=== PATIENT | female | born 1990 | race Caucasian/White ===

== ENCOUNTER 2020-05-05 10:10 | Emergency (ER) | payer OTHER, SELFPAY ==
[2020-05-05] MEDS ORDERED: KETOROLAC 30 MG/ML INJ ONE (10:54)
--- NOTE | 2020-05-05 11:30 | EDPHYS ---
Physician Documentation [facility] Name: Flaquita Leon Age: 29 yrs Sex: Female : 1990 Arrival Date: 05/05/2020 Time: 10:12 Bed 19 Private MD: ED Physician Scooter Fontaine HPI: 05/05 10:28 This 29 yrs old Female presents to ER via Unassigned with complaints of Back cp Pain. 10:28 The patient presents with pain that is chronic. The symptoms are located in the low cp back. Onset: The symptoms/episode began/occurred 2 year(s) ago. The pain does not radiate. Associated signs and symptoms: Pertinent negatives: abdominal pain, constipation, fever, incontinence, numbness, urinary retention, weakness. 10:28 Modifying factors: the patient symptoms are aggravated by movement. cp Historical: - Allergies: 10:29 No Known Allergies; ss - PMHx: 10:29 spinal stenosis; ss - PSHx: 10:29 None; ss - Immunization history:: Adult Immunizations up to date. - Social history:: Smoking status: Patient reports the use of cigarette tobacco products, smokes one pack cigarettes per day. ROS: 10:35 Constitutional: Negative for body aches, chills, fever, poor PO intake. cp 10:35 Eyes: Negative for injury, pain, redness, and discharge. cp 10:35 ENT: Negative for ear pain, sore throat, difficulty swallowing, difficulty handling secretions. 10:35 Neck: Negative for stiffness. 10:35 Cardiovascular: Negative for chest pain, palpitations. 10:35 Respiratory: Negative for cough, shortness of breath, wheezing. 10:35 Abdomen/GI: Negative for abdominal pain, vomiting, diarrhea, constipation, black/tarry stool, rectal bleeding, bowel incontinence. 10:35 Back: Positive for pain at rest, pain with movement, of the low back area. 10:35 : Negative for urinary symptoms, difficulty urinating, bladder incontinence. 10:35 Neuro: Negative for dizziness, headache, numbness, tingling, weakness, saddle anesthesia. 10:35 All other systems are negative. Exam: 10:45 Head/Face: Normocephalic, atraumatic. cp 10:45 Constitutional: The patient appears in no acute distress, alert, awake, non-toxic, well developed, well nourished. 10:45 Neck: ROM/movement: is normal, is supple, without pain, no range of motions limitations. 10:45 Chest/axilla: Inspection: normal. 10:45 Cardiovascular: Rate: tachycardic, Rhythm: regular. cp 10:45 Respiratory: the patient does not display signs of respiratory distress, Respirations: normal, no use of accessory muscles, no retractions, labored breathing, is not present. 10:45 Abdomen/GI: Exam negative for discomfort, distension, guarding, Inspection: abdomen appears normal. 10:45 Back: pain, that is moderate, of the low back area, ROM is painful, Straight leg raises: of both lower extremities does not illicit pain. 10:45 Neuro: Motor: moves all fours, strength is normal, Sensation: is normal, Gait: is steady, Deep tendon reflexes are 2+ (normal) in the right patellar, right Achilles, left patellar and left Achilles. Vital Signs: 10:26 BP 128 / 77; Pulse 109; Resp 16; Pulse Ox 100% on R/A; Height 5 ft. 4 in. (162.56 cm); ss Pain 8/10; 11:43 BP 131 / 69; Pulse 87; Resp 16; Temp 98; Pulse Ox 100% ; bp MDM: 10:24 Patient medically screened. cp 10:30 Differential diagnosis: chronic back pain, Fracture Ureterolithiasis vertebral cp fracture, UTI. 11:30 Data reviewed: vital signs, nurses notes, radiologic studies, plain films, I have cp discussed the patient's presentation/case with the attending Emergency Department Physician; and as a result, I will discharge patient. 11:30 Counseling: I had a detailed discussion with the patient and/or guardian regarding: the cp historical points, exam findings, and any diagnostic results supporting the discharge/admit diagnosis, radiology results, the need for outpatient follow up, a neurosurgeon, to return to the emergency department if symptoms worsen or persist or if there are any questions or concerns that arise at home. Response to treatment: the patient's symptoms have markedly improved after treatment, VSS. Pain improved. Will discharge to home for continued monitoring. 05/05 10:44 Order name: Urine Dipstick--Ancillary (enter results) 05/05 10:44 Order name: Urine --Ancillary (enter results) bd 05/05 10:28 Order name: Urine Dipstick-Ancillary (obtain specimen); Complete Time: 10:39 cp 05/05 10:28 Order name: Urine Test (obtain specimen); Complete Time: 10:39 cp 05/05 10:45 Order name: XRAY Lumbar Spine (3 Views); Complete Time: 11:34 cp 05/05 11:34 Interpretation: Report reviewed. cp Administered Medications: 10:45 Drug: TORadol 30 mg Route: IM; Site: right deltoid; bp 11:45 Follow up: Response: Pain is decreased bp Disposition: 15:29 Co-signature as Attending Physician, Scooter Fontaine MD. rn Disposition: 05/05/20 11:30 Discharged to Home. Impression: Low back pain. - Condition is Stable. - Discharge Instructions: Back Pain, Adult, Heat Therapy, Back Exercises. - Prescriptions for Lidoderm 5 % Topical adhesive patch,medicated - apply 1 patch by TRANSDERMAL route once daily; 1 box. Cyclobenzaprine 10 mg Oral Tablet - take 1 tablet by ORAL route every 8 hours As needed no driving while taking medication; 20 tablet. Medrol (Marco) 4 mg Oral Tablets, Dose Pack - take 1 tablet by ORAL route as directed - follow package instructions; 1 packet. - Medication Reconciliation Form, Thank You Letter, Antibiotic Education, Prescription Opioid Use form. - Follow up: Ambrose Macdonald MD; When: 2 - 3 days; Reason: Recheck today's complaints. - Problem is chronic. - Symptoms have improved. Signatures: Dispatcher [employer] EDIN Scooter Fontaine MD MD rn Smirch, Shelby, RN RN ss Page, Corey, PA PA cp Oz Lieberman RN RN bp Corrections: (The following items were deleted from the chart) 11:45 11:30 05/05/2020 11:30 Discharged to Home. Impression: Low back pain. Condition is bp Stable. Forms are Medication Reconciliation Form, Thank You Letter, Antibiotic Education, Prescription Opioid Use. Follow up: Ambrose Macdonald; When: 2 - 3 days; Reason: Recheck today's complaints. Problem is chronic. Symptoms have improved. cp
--- NOTE | 2020-05-05 11:30 | ER ---
Nurse's Notes [facility] Name: Flaquita Leon Age: 29 yrs Sex: Female : 1990 Arrival Date: 05/05/2020 Time: 10:12 Bed 19 Private MD: Diagnosis: Low back pain Presentation: 05/05 10:26 Chief complaint: Patient states: back pain x years. Pt reports that in [place] she had ss a CT and was told she has spinal stenosis and needs follow up with it. Pt states that she recently moved back here and has not followed up yet and wants to see if there is anything she can do about. Coronavirus screen: Client denies travel out of the [place] in the last 14 days. Ebola Screen: Patient denies exposure to infectious person. Patient denies travel to an Ebola-affected area in the 21 days before illness onset. Initial Sepsis Screen: Does the patient meet any 2 criteria? No. Patient's initial sepsis screen is negative. Does the patient have a suspected source of infection? No. Patient's initial sepsis screen is negative. Risk Assessment: Do you want to hurt yourself or someone else? Patient reports no desire to harm self or others. Onset of symptoms is unknown. 10:26 Method Of Arrival: Ambulatory ss 10:26 Acuity: VERA 4 ss Triage Assessment: 10:30 General: Appears in no apparent distress. uncomfortable, Behavior is cooperative, bp appropriate for age, anxious. EENT: No signs and/or symptoms were reported regarding the EENT system. Neuro: Level of Consciousness is awake, alert, obeys commands, Oriented to Appropriate for age. Cardiovascular: No deficits noted. Respiratory: No deficits noted. GI: No signs and/or symptoms were reported involving the gastrointestinal system. : Reports pain in lower back. Derm: No deficits noted. Musculoskeletal: No deficits noted. Historical: - Allergies: 10:29 No Known Allergies; ss - PMHx: 10:29 spinal stenosis; ss - PSHx: 10:29 None; ss - Immunization history:: Adult Immunizations up to date. - Social history:: Smoking status: Patient reports the use of cigarette tobacco products, smokes one pack cigarettes per day. Screenin:30 Abuse screen: Denies threats or abuse. Denies injuries from another. Nutritional bp screening: No deficits noted. Tuberculosis screening: No symptoms or risk factors identified. Fall Risk None identified. Assessment: 10:15 Reassessment: Unable to locate patient. ER registration states that patient told them ss she had to get something out of her car real quick. Awaiting for patient to return. 11:43 Reassessment: PT D/C HOME AMBULATORY, DX WITH LOW BACK PAIN. Neuro: Moves all bp extremities. Full function Gait is steady. Vital Signs: 10:26 BP 128 / 77; Pulse 109; Resp 16; Pulse Ox 100% on R/A; Height 5 ft. 4 in. (162.56 cm); ss Pain 8/10; 11:43 BP 131 / 69; Pulse 87; Resp 16; Temp 98; Pulse Ox 100% ; bp ED Course: 10:12 Patient arrived in ED. ag5 10:19 Oliver Ramirez PA is PHCP. cp 10:20 Scooter Fontaine MD is Attending Physician. cp 10:23 Oz Lieberman, SLOAN is Primary Nurse. bp 10:28 Triage completed. ss 10:29 Arm band placed on right wrist. ss 10:30 Patient has correct armband on for positive identification. Bed in low position. Call bp light in reach. Side rails up X2. 11:07 XRAY Lumbar Spine (3 Views) In Process Unspecified. EDMS 11:29 Ambrose Macdonald MD is Referral Physician. cp 11:43 No provider procedures requiring assistance completed. Patient did not have IV access bp during this emergency room visit. Administered Medications: 10:45 Drug: TORadol 30 mg Route: IM; Site: right deltoid; bp 11:45 Follow up: Response: Pain is decreased bp Outcome: 11:30 Discharge ordered by . cp 11:43 Discharged to home ambulatory. bp 11:43 Condition: stable 11:43 Discharge instructions given to patient, Instructed on discharge instructions, follow up and referral plans. medication usage, Demonstrated understanding of instructions, follow-up care, medications, Prescriptions given X 3. 11:45 Patient left the ED. bp Signatures: Dispatcher [employer] EDMS Kristin Epstein RN RN Oliver Ramirez PA PA cp Peltier, Brian, RN RN bp Emily Goncalves ag5
--- NOTE | 2020-05-05 11:33 | RAD REPORT ---
EXAM DESCRIPTION: RAD - Lumbar Spine 3 Views - 05/05/2020 11:09 am CLINICAL HISTORY: LOWER BACK PAIN COMPARISON: No comparisons FINDINGS: A three-view lumbar spine examination was performed. Lumbar bodies are normal in height. L5 pars interarticularis defects are present with grade I, border ing on II, spondylolisthesis. Vertebral alignment otherwise normal. No fracture or acute bony process seen. No disc space narrowing. No other significant findings. No other pars defects identified. IMPRESSION: L5 spondylolysis with grade I, bordering on grade 2, spondylolisthesis. Patient may well have spinal stenosis at L5-S1 and bilateral foraminal stenosis is often seen. No compression fracture or acute finding.
[2020-05-05 11:50] LABS: Urine Blood NEGATIVE (NEG); Urine Glucose NEGATIVE (NEG); Urine Protein NEGATIVE (NEG)
[2020-05-05 11:56] VITALS: O2SAT 100
[2020-05-05 11:57] VITALS: BP 131/69; TEMP 98
== END 2020-05-05 11:45 | disposition home or self-care (01) ==
LOC: ER 10:10
DX: M54.5 Low back pain (principal); F17.210 Nicotine dependence, cigarettes, uncomplicated
CPT/HCPCS: 72100; 81003; 81025; 96372; 99283

== ENCOUNTER 2020-05-23 09:04 | Emergency (ER) | payer SELFPAY ==
--- OUTSIDE RECORDS SUMMARY | 2020-05-23 09:06 | XMS REPORT | Summary of Care ---
:1990 Author Organization [facility] Address [address] [place] [address] Care Team Providers Name Role Phone Pcp, Does Not Have A Primary Care Provider Reason for Referral (Routine) Status Reason Specialty Diagnoses / Referred By Referred To Procedures Contact Contact New Request ORT-ORTHOPAEDIC Diagnoses Chronic low back pain, unspecified back pain laterality, unspecified whether sciatica present Viktor Lemus, SURGERY OF THE Procedures Discharge Follow-Up: Specialty Service ORT-ORTHOPAEDIC SURGERY OF THE SPINE; 4-6 Weeks DOUGH CATCHER SPINE [address] [place] [address] Reason for Visit Reason Comments Back Pain Auth/Cert Status Reason Specialty Diagnoses / Referred By Referred To Procedures Contact Contact Emergency Medicine [facility] Em ergency Dept [address] [phone] Fax: Encounter Details Date Type Department Care Team Description 05/11/2020 Emergency ADC-Emergency Viktor Lemus , DOUGH CATCHER Chronic low back pain, Department [address] [facility] unspecified back pain [address] [facility] [address] [place] [address] sciatica present [phone] (Primary Dx) Allergies No Known Allergiesdocumented as of this encounter (statuses as of 05/11/2020) Medications Medication Sig Dispensed Refills Start Date End Date Status HYDROcodone-acetaminop TAKE 1 TABLET BY 0 06/28/2016 Active hen 5-325 mg tablet MOUTH EVERY 4 HOURS NEEDED FOR PAIN CITRANATAL HARMONY, TAKE ONE CAPSULE 6 06/06/2016 Active IRON FUM, 27 mg iron-1 BY MOUTH EVERY DAY mg -50 mg-260 mg Cap documented as of this encounter (statuses as of 05/11/2020) Active Problems Problem Noted Date Left wrist pain 07/03/2016 documented as of this encounter (statuses as of 05/11/2020) Social History Tobacco Use Types Packs/Day Years Used Date Current Every Day Smoker Smokeless Tobacco: Never Used Alcohol Use Drinks/Week oz/Week Comments No 0 Standard drinks or equivalent 0.0 Sex Assigned at Date Recorded Not on file COVID-19 Exposure Response Date Recorded In the last month, have you been in contact with No / Unsure 05/11/2020 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 documented as of this encounter Last Filed Vital Signs Vital Sign Reading Time Taken Comments Blood Pressure 98/89 05/11/2020 9:33 AM TROLLEY WORKER Pulse 89 05/11/2020 9:33 AM TROLLEY WORKER Temperature 36.6 C (97.9 F) 05/11/2020 9:33 AM TROLLEY WORKER Respiratory Rate 14 05/11/2020 9:33 AM TROLLEY WORKER Oxygen Saturation 99% 05/11/2020 9:33 AM TROLLEY WORKER Inhaled Oxygen Concentration - - Weight 74.8 kg (165 lb) 05/11/2020 9:33 AM TROLLEY WORKER Height 162.6 cm (5' 4") 05/11/2020 9:33 AM TROLLEY WORKER Body Mass Index 28.32 05/11/2020 9:33 AM TROLLEY WORKER documented in this encounter ED Notes Lima Andrade RN - 05/11/2020 9:31 AM CSTPatient complaining of chronic back pain. States she was diagnosed with spinal stenosis in [place]. She was told she would need surgery but is unable to afford it. She is here requesting a referral to another surgeon and for pain management. She ambulated without gait disturbances to triage and appears in no acute distress. documented in this encounter Miscellaneous Notes ED Nurse Note - Lima Andrade RN - 05/11/2020 11:02 AM CSTPt seen by provider and deemed non-emergent. Medical screening completed. Pt declined to stay. Vital signs stable, AO4, no ataxia, gait steady on departure and appears in no distress. documented in this encounter Plan of Treatment Health Maintenance Due Date Last Done Comments VARICELLA VACCINES (1 of 2 - 1990 2-dose childhood series) Depression Screening 2001 DTaP,Tdap,and Td Vaccines (1 - 2008 Tdap) PAP SMEAR 2010 INFLUENZA VACCINE (#1) 2020 PNEUMOCOCCAL 0-64 YEARS COMBINED Aged Out No longer eligible based on SERIES patient's age to complete this topic documented as of this encounter Procedures Procedure Name Priority Date/Time Associated Diagnosis Comme nts NOTICE OF PRIVACY Routine 05/11/2020 9:22 AM TROLLEY WORKER PRACTICES documented in this encounter Results Not on filedocumented in this encounter Visit Diagnoses Diagnosis Chronic low back pain, unspecified back pain laterality, unspecified whether sciatica present - Primary documented in this encounter
--- OUTSIDE RECORDS SUMMARY | 2020-05-23 09:06 | XMS REPORT | Continuity of Care Document ---
:1990 Author Organization [facility] t Address [address] [place] [address] Care Team Providers Name Role Phone Amisha Taylor Attending Clinician Problems This patient has no known problems. Allergies, Adverse Reactions, Alerts This patient has no known allergies or adverse reactions. Medications This patient has no known medications. Procedures This patient has no known procedures. Encounters Start End Encounter Admission Attending Care Care Encounter Source Date/Time Date/Time Type Type Clinicians Facility Department ID 2020-05-14 2020-05-14 Emergency Allan, [facility] [id number] 10:59:00 11:15:00 Viktor Lion [facility] [id number] 2020-05-11 2020-05-11 Emergency Allan, [facility] [id number] 09:34:00 11:03:00 Viktor Lion [place] [id number] [place] [id number] [place] [id number] Results This patient has no known results.
--- OUTSIDE RECORDS SUMMARY | 2020-05-23 09:07 | XMS REPORT | Summary of Care ---
:1990 Author Organization 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 [address] [place] [phone] [place] [address] Allergies No Known Allergiesdocumented as of this encounter (statuses as of 05/14/2020) Medications Medication Sig Dispensed Refills Start Date End Date Status HYDROcodone-acetaminop TAKE 1 TABLET BY 0 06/28/2016 Active hen 5-325 mg tablet MOUTH EVERY 4 HOURS NEEDED FOR PAIN CITRANATAL HARMONY, TAKE ONE CAPSULE 6 06/06/2016 Active IRON FUM, 27 mg iron-1 BY MOUTH EVERY DAY mg -50 mg-260 mg Cap documented as of this encounter (statuses as of 05/14/2020) Active Problems Problem Noted Date Left wrist pain 07/03/2016 documented as of this encounter (statuses as of 05/14/2020) Social History Tobacco Use Types Packs/Day Years Used Date Current Every Day Smoker Smokeless Tobacco: Never Used Alcohol Use Drinks/Week oz/Week Comments No 0 Standard drinks or equivalent 0.0 Sex Assigned at Date Recorded Not on file COVID-19 Exposure Response Date Recorded In the last month, have you been in contact with No / Unsure 05/11/2020 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 documented as of this encounter Last Filed Vital Signs Vital Sign Reading Time Taken Comments Blood Pressure 126/78 05/14/2020 11:00 AM ADULT EDUCATION PROFESSIONAL Pulse 98 05/14/2020 11:00 AM ADULT EDUCATION PROFESSIONAL Temperature 37 C (98.6 F) 05/14/2020 11:00 AM ADULT EDUCATION PROFESSIONAL Respiratory Rate 16 05/14/2020 11:00 AM ADULT EDUCATION PROFESSIONAL Oxygen Saturation 100% 05/14/2020 11:00 AM ADULT EDUCATION PROFESSIONAL Inhaled Oxygen Concentration - - Weight 74.8 kg (164 lb 14.4 oz) 05/14/2020 11:00 AM ADULT EDUCATION PROFESSIONAL Height - - Body Mass Index 28.31 05/11/2020 9:33 AM ADULT EDUCATION PROFESSIONAL documented in this encounter ED Notes Beulah Alexandre RN - 05/14/2020 10:57 AM CSTChemirna Leon is a 29 year old female rec'd to ed triage ambulatory with stable gait c/o low and mid back pain x 1 month +, worse with movement, denies any recent injury looking to get set up with primary care. Patient awake alert resp non labored speech clear full sentences, skin warm and dry color approp for race T EDUCATION PROFESSIONAL documented in this encounter Plan of Treatment Health Maintenance Due Date Last Done Comments VARICELLA VACCINES (1 of 2 - 2-dose childhood series) 1990 PNEUMOCOCCAL 0-64 YEARS COMBINED SERIES (1 of 1 - 09/28/1995 PPSV23) Depression Screening 2001 DTaP,Tdap,and Td Vaccines (1 - Tdap) 2008 PAP SMEAR 2010 INFLUENZA VACCINE (#1) 2020 documented as of this encounter Results Not on filedocumented in this encounter
--- NOTE | 2020-05-23 09:34 | ER ---
Nurse's Notes [facility] Name: Flaquita Leon Age: 29 yrs Sex: Female : 1990 Arrival Date: 05/23/2020 Time: 09:07 Bed 8 Private MD: Diagnosis: Cellulitis and abscess of mouth-uvulitis Presentation: 05/23 09:08 Note Called pt in the lobby, pt outside smoking. sv 09:18 Chief complaint: Patient states: sore throat, "feels like something is sitting on top sv of my tongue." since this morning. Coronavirus screen: Client denies travel out of the [place] in the last 14 days. At this time, the client does not indicate any symptoms associated with coronavirus-19. Ebola Screen: No symptoms or risks identified at this time. Risk Assessment: Do you want to hurt yourself or someone else? Patient reports no desire to harm self or others. Onset of symptoms was May 23, 2020. 09:18 Method Of Arrival: Ambulatory sv 09:18 Acuity: VERA 4 sv 09:25 Initial Sepsis Screen: Does the patient meet any 2 criteria? No. Patient's initial vg1 sepsis screen is negative. Does the patient have a suspected source of infection? No. Patient's initial sepsis screen is negative. 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 - Social history:: Smoking status: Patient reports the use of cigarette tobacco products, smokes 1.5 packs per day. Screenin:20 Abuse screen: Denies threats or abuse. Nutritional screening: No deficits noted. vg1 Tuberculosis screening: No symptoms or risk factors identified. Fall Risk No fall in past 12 months (0 pts). No secondary diagnosis (0 pts). No IV (0 pts). Ambulatory Aid- Crutches/Cane/Walker (15 pts). Gait- Normal/Bed Rest/Wheelchair (0 pts) Mental Status- Oriented to own ability (0 pts). Total Caballero Fall Scale indicates No Risk (0-24 pts). Assessment: 09:20 General: Appears in no apparent distress. comfortable, Behavior is calm, cooperative. vg1 Pain: Complains of pain in throat Pain currently is 6 out of 10 on a pain scale. Pain began this morning. Neuro: Level of Consciousness is awake, alert, obeys commands, Oriented to person, place, time, situation. Cardiovascular: Patient's skin is warm and dry. Respiratory: Airway is patent Respiratory effort is even, unlabored, Respiratory pattern is regular, symmetrical. GI: No signs and/or symptoms were reported involving the gastrointestinal system. : No signs and/or symptoms were reported regarding the genitourinary system. EENT: Throat is reddened swollen uvula. Derm: Skin is pink, warm \\T\\ dry. Musculoskeletal: Range of motion: intact in all extremities. Vital Signs: 09:18 Weight 68.04 kg; Height 5 ft. 4 in. (162.56 cm); sv 09:20 BP 118 / 86; Pulse 70; Resp 16; Temp 98.0(O); Pulse Ox 95% on R/A; vg1 09:18 Body Mass Index 25.75 (68.04 kg, 162.56 cm) sv ED Course: 09:07 Patient arrived in ED. mr 09:08 Oliver Ramirez PA is PHCP. cp 09:08 Scooter Fontaine MD is Attending Physician. cp 09:12 Patient's name was called from ANGELICA fisher. No response. ph 09:19 Triage completed. sv 09:22 Arm band placed on right wrist. vg1 09:25 Patient has correct armband on for positive identification. Bed in low position. Call vg1 light in reach. 09:31 Marie Hester, SLOAN is Primary Nurse. vg1 09:46 Strep Sent. vg1 09:51 No provider procedures requiring assistance completed. Patient did not have IV access vg1 during this emergency room visit. Administered Medications: 09:40 Drug: Decadron 10 mg Route: PO; vg1 09:54 Follow up: Response: Medication administered at discharge. vg1 09:40 Drug: Augmentin 875 mg Route: PO; vg1 09:54 Follow up: Response: Medication administered at discharge. vg1 Outcome: 09:33 Discharge ordered by . cp 09:51 Discharged to home ambulatory. vg1 09:51 Condition: good 09:51 Discharge instructions given to patient, Instructed on discharge instructions, follow up and referral plans. medication usage, Demonstrated understanding of instructions, follow-up care, medications, Prescriptions given X 1. 09:52 Patient left the ED. vg1 Signatures: Lesia Alvarenga, RN RN Hien Bell mr Albert, Palma, RN RN Ashley, NIMO Boyd cp, Marie, RN RN vg1
--- NOTE | 2020-05-23 09:34 | EDPHYS ---
Physician Documentation [facility] Name: Flaquita Leon Age: 29 yrs Sex: Female : 1990 Arrival Date: 05/23/2020 Time: 09:07 Bed 8 Private MD: ED Physician Scooter Fontaine HPI: 05/23 09:25 This 29 yrs old Female presents to ER via Ambulatory with complaints of Sore cp Throat. 09:25 The patient presents with sore throat. The patient describes throat pain as sore cp throat. Onset: The symptoms/episode began/occurred this morning. Severity of symptoms: in the emergency department the symptoms are unchanged, despite home interventions. Associated signs and symptoms: Pertinent positives: cough, dysphagia, earache, Sore throat Pertinent negatives fever, flu-like symptoms. 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 - Social history:: Smoking status: Patient reports the use of cigarette tobacco products, smokes 1.5 packs per day. ROS: 09:27 Eyes: Negative for injury, pain, redness, and discharge. cp 09:27 Constitutional: Negative for body aches, chills, fever, poor PO intake. 09:27 ENT: Positive for ear pain, sore throat, Negative for drainage from ear(s), difficulty swallowing, difficulty handling secretions. 09:27 Respiratory: Positive for cough, Negative for shortness of breath, wheezing. 09:27 Abdomen/GI: Negative for abdominal pain, nausea, vomiting, and diarrhea. 09:27 Neuro: Negative for headache. 09:27 All other systems are negative. Exam: 09:28 Head/Face: Normocephalic, atraumatic. cp 09:28 Constitutional: The patient appears in no acute distress, alert, awake, non-toxic, well developed, well nourished. 09:28 Eyes: Periorbital structures: appear normal, Conjunctiva: normal, no exudate, no injection, Lids and lashes: appear normal, bilaterally. 09:28 ENT: External ear(s): are unremarkable, Ear canal(s): are normal, clear, TM's: dullness, bilaterally, Nose: is normal, Mouth: Lips: moist, Oral mucosa: pink and intact, moist, Posterior pharynx: Tonsils: with erythema, no enlargement, no exudate, Uvula: midline, edematous, erythema, erythema, that is mild, exudate, is not appreciated. 09:28 Neck: ROM/movement: is normal, is supple, without pain, no range of motions limitations, no meningismus. 09:28 Chest/axilla: Inspection: normal. 09:28 Respiratory: the patient does not display signs of respiratory distress, Respirations: normal, no use of accessory muscles, labored breathing, is not present. 09:28 Skin: no rash present. Vital Signs: 09:18 Weight 68.04 kg; Height 5 ft. 4 in. (162.56 cm); sv 09:20 BP 118 / 86; Pulse 70; Resp 16; Temp 98.0(O); Pulse Ox 95% on R/A; vg1 09:18 Body Mass Index 25.75 (68.04 kg, 162.56 cm) sv MDM: 09:21 Patient medically screened. cp 09:32 Data reviewed: vital signs, nurses notes. 09:32 Differential diagnosis: epiglottitis, group A strep tonsillitis, peritonsillar abscess cp pharyngitis, retropharyngeal abcess tonsillitis, uvulitis. Counseling: I had a detailed discussion with the patient and/or guardian regarding: the historical points, exam findings, and any diagnostic results supporting the discharge/admit diagnosis, to return to the emergency department if symptoms worsen or persist or if there are any questions or concerns that arise at home. Response to treatment: the patient's symptoms have mildly improved after treatment. 05/23 09:25 Order name: Strep cp Administered Medications: 09:40 Drug: Decadron 10 mg Route: PO; vg1 09:54 Follow up: Response: Medication administered at discharge. vg1 09:40 Drug: Augmentin 875 mg Route: PO; vg1 09:54 Follow up: Response: Medication administered at discharge. vg1 Disposition: 09:53 Co-signature as Attending Physician, Scooter Fontaine MD. rn Disposition: 05/23/20 09:33 Discharged to Home. Impression: Cellulitis and abscess of mouth - uvulitis. - Condition is Stable. - Discharge Instructions: Uvulitis. - Prescriptions for Augmentin 875- 125 mg Oral Tablet - take 1 tablet by ORAL route every 12 hours for 10 days; 20 tablet. - Medication Reconciliation Form, Thank You Letter, Antibiotic Education, Prescription Opioid Use form. - Follow up: Private Physician; When: 1 - 2 days; Reason: Worsening of condition. - Problem is new. - Symptoms have improved. Signatures: Dispatcher [employer] Lesia Davis RN RN sv Scooter Fontaine MD MD rn Oliver Ramirez PA PA Marie Duong, RN RN vg1 Corrections: (The following items were deleted from the chart) 09:52 09:33 05/23/2020 09:33 Discharged to Home. Impression: Cellulitis and abscess of mouth vg1 - uvulitis. Condition is Stable. Forms are Medication Reconciliation Form, Thank You Letter, Antibiotic Education, Prescription Opioid Use. Follow up: Private Physician; When: 1 - 2 days; Reason: Worsening of condition. Problem is new. Symptoms have improved. cp
[2020-05-23] MEDS ORDERED: dexAMETHasone 10 MG/ML VIAL ONE (09:50)
[2020-05-23] MEDS ORDERED: AMOX/K CLAV 875 MG TAB ONE (09:50)
[2020-05-23 14:27] VITALS: BP 118/86; TEMP 98; O2SAT 95
== END 2020-05-23 09:52 | disposition home or self-care (01) ==
LOC: ER 09:04
DX: K12.2 Cellulitis and abscess of mouth (principal); F17.210 Nicotine dependence, cigarettes, uncomplicated
CPT/HCPCS: 87070; 87081; 99283; J1100

== ENCOUNTER 2020-06-18 18:23 | Emergency (ER) | payer SELFPAY ==
--- OUTSIDE RECORDS SUMMARY | 2020-06-18 18:24 | XMS REPORT | Continuity of Care Document ---
:1990 Author Organization [facility] t Address [address] [place] [address] Care Team Providers Name Role Phone Amisha [...] 2020-05-14 2020-05-14 Emergency Allan, TRAUMA [id number] 10:59:00 11:15:00 Viktor Lion [place] [id number] 2020-05-11 2020-05-11 Emergency Allan, [facility] [id number] 09:34:00 11:03:00 Viktor Lion [place] [id number] [place] [id number] [place] [phone] [id number] Results This patient has no known results.
[2020-06-18 20:12] LABS: Absolute Lymphocytes (CBC) 2.2 K/uL (0.7-4.9); Basophils % 0.4 % (0-1.3); Hematocrit 44.1 % (36.0-45.0); MPV 7.4 fL (7.6-11.3)
[2020-06-18 20:13] LABS: Protime INR 1.07
[2020-06-18 20:18] LABS: Barbiturates NEGATIVE (NEGATIVE); Benzodiazepines NEGATIVE (NEGATIVE); Cocaine NEGATIVE (NEGATIVE); METHAMPHETAM POSITIVE (NEGATIVE); Methadone NEGATIVE (NEGATIVE); Opiates NEGATIVE (NEGATIVE); Phencyclidine NEGATIVE (NEGATIVE); THC Cannibis POSITIVE (NEGATIVE)
[2020-06-18 20:29] LABS: ALT/SGPT 13 U/L (12-78); AST/SGOT 8 U/L (15-37); Albumin 4.3 g/dL (3.4-5.0); Alkaline Phosphatase 74 U/L (45-117); BUN Blood Urea Nitrogen 14 mg/dL (7-18); Bicarbonate 28 mmol/L (21-32); Bilirubin Direct 0.3 mg/dL (0-0.2); Bilirubin Total 1.9 mg/dL (0.2-1.0); Glucose Level 82 mg/dL (74-106); Potassium 3.7 mmol/L (3.5-5.1); Protein, Total 8.1 g/dL (6.4-8.2); Sodium Level 141 mmol/L (136-145)
[2020-06-18 20:31] LABS: Urine Blood TRACE (NEG); Urine Glucose NEGATIVE (NEG); Urine Protein NEGATIVE (NEG); Urine Specific Gravity 1.015 (1.005-1.030); Urine pH 8.5 (5.0-7.0)
--- NOTE | 2020-06-18 21:28 | ER ---
Nurse's Notes [facility] Name: Flaquita Leon Age: 29 yrs Sex: Female : 1990 Arrival Date: 06/18/2020 Time: 18:24 Bed 19 Private MD: Diagnosis: Methamphetamine Abuse;Marijuana Use;Anxiety;UTI Presentation: 06/18 18:32 Chief complaint: Patient states: "I was in intermediate and I started hyperventilating and aa5 having trouble breathing and anxiety so the police brought me here". Pt also reports chronic back pain and feeling lightheaded at this time. Pt also reports cough, denies smoker's cough. Pt cooperative but irritated, pt accompanied by special forces warrant officer. 18:32 Coronavirus screen: Client denies travel out of the [place] in the last 14 days. cough aa5 unrelated to allergies, Client presents with at least one sign or symptom that may indicate coronavirus-19. Standard/surgical mask placed on the client. Provider contacted for isolation considerations. Ebola Screen: Patient negative for fever greater than or equal to 101.5 degrees Fahrenheit, and additional compatible Ebola Virus Disease symptoms. Initial Sepsis Screen: Does the patient meet any 2 criteria? No. Patient's initial sepsis screen is negative. Does the patient have a suspected source of infection? No. Patient's initial sepsis screen is negative. Risk Assessment: Do you want to hurt yourself or someone else? Patient reports no desire to harm self or others. Onset of symptoms was June 2020. 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 - Social history:: Smoking status: Patient reports the use of cigarette tobacco products, smokes one pack cigarettes per day. Screenin:15 Abuse screen: Denies threats or abuse. Denies injuries from another. Nutritional wh screening: No deficits noted. Tuberculosis screening: No symptoms or risk factors identified. Fall Risk None identified. Assessment: 19:15 General: Appears in no apparent distress. Behavior is cooperative, appropriate for age, anxious. Pain: Denies pain. Neuro: Level of Consciousness is awake, alert, obeys commands, Oriented to person, place, time, situation, Appropriate for age. Cardiovascular: Capillary refill < 3 seconds. Respiratory: Airway is patent Respiratory effort is even, unlabored, Respiratory pattern is regular, symmetrical. GI: Abdomen is flat, non-distended. : No signs and/or symptoms were reported regarding the genitourinary system. EENT: No signs and/or symptoms were reported regarding the EENT system. Derm: Skin is intact, is healthy with good turgor, Skin is pink, warm \\T\\ dry. normal. Musculoskeletal: Circulation, motion, and sensation intact. 20:30 Reassessment: Patient appears in no apparent distress at this time. No changes from previously documented assessment. Patient and/or family updated on plan of care and expected duration. Pain level reassessed. Patient is alert, oriented x 3, equal unlabored respirations, skin warm/dry/pink. 21:30 Reassessment: Patient appears in no apparent distress at this time. Patient and/or family updated on plan of care and expected duration. Pain level reassessed. Patient is alert, oriented x 3, equal unlabored respirations, skin warm/dry/pink. Vital Signs: 18:32 BP 109 / 71; Pulse 83; Resp 18 S; Temp 98.2(TE); Pulse Ox 99% on R/A; Weight 68.04 kg aa5 (R); Height 5 ft. 4 in. (162.56 cm) (R); 20:30 BP 110 / 69; Pulse 69; Resp 18; Pulse Ox 98% on R/A; wh 21:30 BP 98 / 77; Pulse 81; Resp 18; Pulse Ox 99% on R/A; wh 18:32 Body Mass Index 25.75 (68.04 kg, 162.56 cm) aa5 ED Course: 18:24 Patient arrived in ED. rg4 18:32 Arm band placed on. aa5 18:36 Triage completed. aa5 19:01 Shane Solorzano MD is Attending Physician. 7 19:05 Urine collected: clean catch specimen, clear, kashif colored, Legal drug screen obtained jp3 per protocol. 19:15 Patient has correct armband on for positive identification. Bed in low position. Call light in reach. Side rails up X 1. Pulse ox on. NIBP on. 19:20 Tamica Viveros is Primary Nurse. 19:40 Initial lab(s) drawn, by me, sent to lab. Patient maintains SpO2 saturation greater jp3 than 95% on room air. 19:59 EKG done, by ED staff, reviewed by Shane Solorzano MD. jp3 20:05 Diet: Patient given water. Tolerated well. jp3 21:42 No provider procedures requiring assistance completed. Patient did not have IV access during this emergency room visit. Administered Medications: No medications were administered Outcome: 21:27 Discharge ordered by . mh7 21:42 Discharged to Law Enforcement 21:42 Condition: stable 21:42 Discharge instructions given to patient, police, Instructed on discharge instructions, follow up and referral plans. medication usage, POC Demonstrated understanding of instructions, follow-up care, medications, POC Prescriptions given X 1. 21:44 Patient left the ED. Signatures: Heather Lugo RN RN aa5 Candis Hester rg4 Tamica Viveros Roland Jimenez jp3 Shane Solorzano MD MD mh7 Corrections: (The following items were deleted from the chart) 18:40 18:32 Chief complaint: Patient states: "I was in intermediate and I started hyperventilating aa5 and having trouble breathing and anxiety so the police brought me here". Pt also reports back pain and feeling lightheaded at this time. Pt also reports cough, denies smoker's cough. aa5
--- NOTE | 2020-06-18 21:29 | EDPHYS ---
Physician Documentation [facility] Name: Flaquita Leon Age: 29 yrs Sex: Female : 1990 Arrival Date: 06/18/2020 Time: 18:24 Bed 19 Private MD: ED Physician Shane Solorzano HPI: 06/18 19:37 This 29 yrs old Female presents to ER via Ambulatory with complaints of mh7 Anxiety. 19:37 The patient presents to the emergency department with anxiety, Arrested and jailed. mh7 Onset: The symptoms/episode began/occurred just prior to arrival, today. Past psychiatric history: Prior diagnosis: bipolar disorder, Anxiety, Psychiatric medications include: Lisandra, Primary psychiatric physician: [facility] psychiatrist, the patient has not had a prior suicide gesture, the patient does not have a previous inpatient psychiatric history, the patient's last psychiatric treatment was 2 day(s) ago. Associated signs and symptoms: Pertinent positives; anxiety. Severity of symptoms: At their worst the symptoms were moderate just prior to arrival, today, in the emergency department the symptoms have improved moderately. The patient has experienced similar episodes in the past, multiple times. Patient states that she started to feel as if she was going to have a seizure after being arrested and taken to [facility]. She did not have a seizure or LOC. She was breathing fast and had tingling in her hands. She denies any other complaints.. 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 - Social history:: Smoking status: Patient reports the use of cigarette tobacco products, smokes one pack cigarettes per day. ROS: 19:37 Constitutional: Negative for fever, chills, and weight loss, Eyes: Negative for injury, mh7 pain, redness, and discharge, ENT: Negative for injury, pain, and discharge, Neck: Negative for injury, pain, and swelling, Cardiovascular: Negative for chest pain, palpitations, and edema, Respiratory: Negative for shortness of breath, cough, wheezing, and pleuritic chest pain, Abdomen/GI: Negative for abdominal pain, nausea, vomiting, diarrhea, and constipation, : Negative for injury, bleeding, discharge, and swelling, MS/Extremity: Negative for injury and deformity, Skin: Negative for injury, rash, and discoloration, Allergy/Immunology: Negative for hives, rash, and allergies, Endocrine: Negative for neck swelling, polydipsia, polyuria, polyphagia, and marked weight changes, Hematologic/Lymphatic: Negative for swollen nodes, abnormal bleeding, and unusual bruising. Exam: 19:37 Constitutional: This is a well developed, well nourished patient who is awake, alert, mh7 and in no acute distress. Head/Face: Normocephalic, atraumatic. Eyes: Pupils equal round and reactive to light, extra-ocular motions intact. Lids and lashes normal. Conjunctiva and sclera are non-icteric and not injected. Cornea within normal limits. Periorbital areas with no swelling, redness, or edema. Neck: Trachea midline, no thyromegaly or masses palpated, and no cervical lymphadenopathy. Supple, full range of motion without nuchal rigidity, or vertebral point tenderness. No Meningismus. Chest/axilla: Normal chest wall appearance and motion. Nontender with no deformity. No lesions are appreciated. Cardiovascular: Regular rate and rhythm with a normal S1 and S2. No gallops, murmurs, or rubs. Normal PMI, no JVD. No pulse deficits. Respiratory: Lungs have equal breath sounds bilaterally, clear to auscultation and percussion. No rales, rhonchi or wheezes noted. No increased work of breathing, no retractions or nasal flaring. Abdomen/GI: Soft, non-tender, with normal bowel sounds. No distension or tympany. No guarding or rebound. No evidence of tenderness throughout. Back: No spinal tenderness. No costovertebral tenderness. Full range of motion. Skin: Warm, dry with normal turgor. Normal color with no rashes, no lesions, and no evidence of cellulitis. MS/ Extremity: Pulses equal, no cyanosis. Neurovascular intact. Full, normal range of motion. Neuro: Awake and alert, GCS 15, oriented to person, place, time, and situation. Cranial nerves II-XII grossly intact. Motor strength 5/5 in all extremities. Sensory grossly intact. Cerebellar exam normal. Normal gait. Psych: Awake, alert, with orientation to person, place and time. Behavior, mood, and affect are within normal limits. Vital Signs: 18:32 BP 109 / 71; Pulse 83; Resp 18 S; Temp 98.2(TE); Pulse Ox 99% on R/A; Weight 68.04 kg aa5 (R); Height 5 ft. 4 in. (162.56 cm) (R); 20:30 BP 110 / 69; Pulse 69; Resp 18; Pulse Ox 98% on R/A; wh 21:30 BP 98 / 77; Pulse 81; Resp 18; Pulse Ox 99% on R/A; wh 18:32 Body Mass Index 25.75 (68.04 kg, 162.56 cm) aa5 MDM: 21:25 Differential diagnosis: drug withdrawal. Anxiety, Substance Abuse. Data reviewed: vital health system signs, nurses notes, old medical records, lab test result(s), CBC, drug level(s), electrolytes, urinalysis, urine drug screen, UPT: EKG. Data interpreted: Pulse oximetry: on room air is 99 %. Interpretation: normal. Counseling: I had a detailed discussion with the patient and/or guardian regarding: the historical points, exam findings, and any diagnostic results supporting the discharge/admit diagnosis, lab results, the need for outpatient follow up, to return to the emergency department if symptoms worsen or persist or if there are any questions or concerns that arise at home. Response to treatment: the patient's symptoms have resolved after treatment, the patient's blood pressure is in an acceptable range, mental status has returned to baseline, the patient no longer shows bradycardia, the patient is not short of breath, the patient is not tachycardic, the patient's pain is gone, the patient's temperature has normalized. 21:27 Patient medically screened. health system 06/18 19:24 Order name: Acetaminophen; Complete Time: 20:37 06/18 19:24 Order name: Basic Metabolic Panel; Complete Time: 20:37 06/18 19:24 Order name: CBC with Diff; Complete Time: 20:37 18 19:24 Order name: ETOH Level; Complete Time: 20:37 18 19:24 Order name: Hepatic Function; Complete Time: 20:37 18 19:24 Order name: PT-INR; Complete Time: 20:37 06/18 19:24 Order name: Urine Test (obtain specimen); Complete Time: 19:50 wh 06/18 19:24 Order name: Ptt, Activated; Complete Time: 20:37 wh 06/18 19:24 Order name: Salicylate; Complete Time: 20:37 wh 06/18 19:24 Order name: Urine Drug Screen; Complete Time: 20:37 wh 06/18 19:24 Order name: EKG; Complete Time: 19:25 wh 06/18 19:57 Order name: Urine --Ancillary (enter results) tt3 06/18 19:57 Order name: Urine Dipstick--Ancillary (enter results) tt3 06/18 20:38 Order name: CPK; Complete Time: 21:18 7 06/18 19:24 Order name: EKG - Nurse/Tech; Complete Time: 19:49 wh 06/18 19:24 Order name: Labs collected and sent; Complete Time: 19:49 wh 06/18 19:24 Order name: Urine Dipstick-Ancillary (obtain specimen); Complete Time: 19:49 wh Administered Medications: No medications were administered Disposition: 06/18/20 21:27 Discharged to Home. Impression: Methamphetamine Abuse, Marijuana Use, Anxiety, UTI. - Condition is Stable. - Discharge Instructions: Cannabis Use Disorder, Urinary Tract Infection, Adult, [id number], Stimulant Use Disorder-Methamphetamines, Generalized Anxiety Disorder. - Prescriptions for Macrobid 100 mg Oral Capsule - take 1 capsule by ORAL route every 12 hours for 7 days; 14 capsule. - Medication Reconciliation Form, Thank You Letter, Antibiotic Education, Prescription Opioid Use form. - Follow up: Private Physician; When: 1 - 2 days; Reason: Worsening of condition, Recheck today's complaints, Continuance of care, Re-evaluation by your physician. - Problem is an acute exacerbation. - Symptoms have improved. Signatures: Dispatcher [facility]HealthHeather Osman RN RN aa5 Tamica Viveros Maurice, MD MD mh7 Corrections: (The following items were deleted from the chart) 19:50 19:24 IV Saline Lock ordered. jp3 21:44 21:27 06/18/2020 21:27 Discharged to Home. Impression: Methamphetamine Abuse; Marijuana wh Use; Anxiety; UTI. Condition is Stable. Forms are Medication Reconciliation Form, Thank You Letter, Antibiotic Education, Prescription Opioid Use. Follow up: Private Physician; When: 1 - 2 days; Reason: Worsening of condition, Recheck today's complaints, Continuance of care, Re-evaluation by your physician. Problem is an acute exacerbation. Symptoms have improved. mh7
--- NOTE | 2020-06-19 13:59 | EKG ---
Test Date: 2020-06-18 Test Time: 19:59:08 Utility Operator: YVES MEASUREMENT RESULTS: Intervals: Rate: 65 CA: 128 QRSD: 84 QT: 418 QTc: 434 [place]: P: 48 CA: 128 QRS: 74 T: 54 INTERPRETIVE STATEMENTS: Normal sinus rhythm Normal ECG Compared to ECG 11/08/2005 22:55:49 No significant changes Electronically Signed On 06-19-20 13:58:22 DIRECTOR OF CASEWORK SERVICES by Jono Cox
[2020-06-21 18:19] VITALS: TEMP 98.2
[2020-06-21 18:21] VITALS: BP 98/77; O2SAT 99
== END 2020-06-18 21:44 | disposition home or self-care (01) ==
LOC: ER 18:23
DX: F15.10 Other stimulant abuse, uncomplicated (principal); F12.90 Cannabis use, unspecified, uncomplicated; N39.0 Urinary tract infection, site not specified; I10 Essential (primary) hypertension; F17.210 Nicotine dependence, cigarettes, uncomplicated
CPT/HCPCS: 36415; 80048; 80076; 80307; 80320; 80329; 81003; 81025; 82550; 85025; 85610; 85730; 93005; 99284

== ENCOUNTER 2020-09-19 21:10 | Emergency (ER) | payer SELFPAY ==
[2011-11-03 05:09] VITALS: BP 117/68
--- OUTSIDE RECORDS SUMMARY | 2020-09-19 21:13 | XMS REPORT | Continuity of Care Document ---
:1990 Author Organization [facility] t Address [address] [place] [place] [address] Care Team Providers Name Role Phone Amisha [...] 2020-05-14 2020-05-14 Emergency Allan, TRAUMA [id number] 10:59:00 11:15:00 Viktor Lion [place] [id number] 2020-05-11 2020-05-11 Emergency [place], [facility] [id number] 09:34:00 11:03:00 Viktor Lion [place] [id number] [place] [id number] [place] [phone] [id number] Results This patient has no known results.
--- NOTE | 2020-09-19 21:40 | ER ---
Nurse's Notes [facility] Name: Flaquita Leon Age: 29 yrs Sex: Female : 1990 Arrival Date: 09/19/2020 Time: 21:27 Bed 24 Private MD: Diagnosis: Rash and other nonspecific skin eruption;Unspecified sexually transmitted disease Presentation: 09/19 21:40 Chief complaint: Patient states: Reports rash to general body that began 2 days ago, lp1 reports staying at new place 2 days ago after being release from correction; also reports vaginal discharge and odor x 2 weeks, concern for STD. 21:40 Method Of Arrival: Ambulatory lp1 21:40 Coronavirus screen: Client denies travel out of the [place] in the last 14 days. At this lp1 time, the client does not indicate any symptoms associated with coronavirus-19. Ebola Screen: No symptoms or risks identified at this time. Initial Sepsis Screen: Does the patient meet any 2 criteria? No. Patient's initial sepsis screen is negative. Does the patient have a suspected source of infection? No. Patient's initial sepsis screen is negative. Risk Assessment: Do you want to hurt yourself or someone else? Patient reports no desire to harm self or others. Onset of symptoms was September 17, 2020. 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 - Social history:: Smoking status: Patient reports the use of cigarette tobacco products, smokes one pack cigarettes per day. Screenin:45 Abuse screen: Denies threats or abuse. Denies injuries from another. Nutritional lp1 screening: No deficits noted. Tuberculosis screening: No symptoms or risk factors identified. Fall Risk None identified. Assessment: 21:45 General: Appears in no apparent distress. Behavior is appropriate for age. Pain: Denies lp1 pain. Neuro: No deficits noted. Cardiovascular: No deficits noted. Respiratory: No deficits noted. GI: No signs and/or symptoms were reported involving the gastrointestinal system. : Reports discharge, malodorous. EENT: No signs and/or symptoms were reported regarding the EENT system. Derm: Skin is intact, Skin is dry, Skin is normal, Rash noted that is itchy, papular, red, urticaria, on back, chest and abdomen Reports itching. Musculoskeletal: No deficits noted. Vital Signs: 21:40 BP 105 / 74; Pulse 113; Resp 16; Temp 98.3(O); Pulse Ox 99% on R/A; Weight 58.97 kg lp1 (R); Height 5 ft. 4 in. (162.56 cm); 21:40 Body Mass Index 22.31 (58.97 kg, 162.56 cm) lp1 ED Course: 21:27 Patient arrived in ED. bp1 21:29 [facility]C [facility] kb 21:29 Shane Solorzano MD is Attending Physician. kb 21:52 Barbara Torres, RN is Primary Nurse. lp1 22:00 No provider procedures requiring assistance completed. Patient did not have IV access lp1 during this emergency room visit. 22:00 Patient has correct armband on for positive identification. lp1 22:00 Arm band placed on. lp1 22:09 Triage completed. lp1 Administered Medications: 21:50 Drug: predniSONE 40 mg Route: PO; lp1 22:07 Follow up: Response: No adverse reaction lp1 21:50 Drug: Pepcid 20 mg Route: PO; lp1 22:07 Follow up: Response: No adverse reaction lp1 21:50 Drug: Zithromax (azithromycin) 1 grams Route: PO; lp1 22:07 Follow up: Response: No adverse reaction lp1 21:50 Drug: Rocephin (cefTRIAXone) 500 mg Route: IM; Site: right gluteus; lp1 22:07 Follow up: Response: No adverse reaction lp1 Outcome: 21:39 Discharge ordered by . kb 22:05 Discharged to home ambulatory, with friend. lp1 22:05 Condition: good 22:05 Discharge instructions given to patient, Instructed on discharge instructions, follow up and referral plans. medication usage, Demonstrated understanding of instructions, follow-up care, medications, Prescriptions given X 2. 22:08 Patient left the ED. lp1 Signatures: Katelin Denney FNP-C FINANCIAL COACH-Barbara Dickens, RN RN lp1 Alem Willard bp1 Corrections: (The following items were deleted from the chart) 22:13 21:45 : No signs and/or symptoms were reported regarding the genitourinary system. lp1lp1
--- NOTE | 2020-09-19 21:40 | EDPHYS ---
Physician Documentation [facility] Name: Flaquita Leon Age: 29 yrs Sex: Female : 1990 Arrival Date: 09/19/2020 Time: 21:27 Bed 24 Private MD: ED Physician Shane Solorzano HPI: 09/19 21:44 This 29 yrs old Female presents to ER via Unassigned with complaints of Rash. kb 21:44 The patient's rash thought to be caused by an unknown cause. The rash is located on the kb body diffusely. The rash can be described as papular. Onset: The symptoms/episode began/occurred 2 day(s) ago. Associated signs and symptoms: Pertinent positives: itching. Severity of symptoms: At their worst the symptoms were moderate in the emergency department the symptoms are unchanged. The patient has not experienced similar symptoms in the past. The patient has not recently seen a physician. Pt reports diffuse rash. States she was in snf and then stayed at her grandmothers so she doesn't know what caused it. Also wanted to get treated for STDs because her boyfriend tested positive for one and she started to have discharge. States she thinks he told her gonorrhea but isn't positive. . 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 - Social history:: Smoking status: Patient reports the use of cigarette tobacco products, smokes one pack cigarettes per day. ROS: 21:44 Constitutional: Negative for fever, chills, and weight loss, Respiratory: Negative for kb shortness of breath, cough, wheezing, and pleuritic chest pain, Abdomen/GI: Negative for abdominal pain, nausea, vomiting, diarrhea, and constipation, MS/Extremity: Negative for injury and deformity, Neuro: Negative for headache, weakness, numbness, tingling, and seizure. 21:44 : Positive for Exam: 21:47 Constitutional: This is a well developed, well nourished patient who is awake, alert, kb and in no acute distress. Head/Face: Normocephalic, atraumatic. Respiratory: Respirations even and unlabored. No increased work of breathing, no retractions or nasal flaring. MS/ Extremity: Pulses equal, no cyanosis. Neurovascular intact. Full, normal range of motion. Neuro: Awake and alert, GCS 15, oriented to person, place, time, and situation. Moves all extremities. Normal gait. 21:47 Skin: rash a moderate rash is noted, rash can be described as papular, and is diffusely located. Vital Signs: 21:40 BP 105 / 74; Pulse 113; Resp 16; Temp 98.3(O); Pulse Ox 99% on R/A; Weight 58.97 kg lp1 (R); Height 5 ft. 4 in. (162.56 cm); 21:40 Body Mass Index 22.31 (58.97 kg, 162.56 cm) lp1 MDM: 21:30 Patient medically screened. kb 21:44 Data reviewed: vital signs, nurses notes. Data interpreted: Pulse oximetry: on room air kb is 100 %. Interpretation: normal. Counseling: I had a detailed discussion with the patient and/or guardian regarding: the historical points, exam findings, and any diagnostic results supporting the discharge/admit diagnosis, the need for outpatient follow up, a family practitioner, to return to the emergency department if symptoms worsen or persist or if there are any questions or concerns that arise at home. Administered Medications: 21:50 Drug: predniSONE 40 mg Route: PO; lp1 22:07 Follow up: Response: No adverse reaction lp1 21:50 Drug: Pepcid 20 mg Route: PO; lp1 22:07 Follow up: Response: No adverse reaction lp1 21:50 Drug: Zithromax (azithromycin) 1 grams Route: PO; lp1 22:07 Follow up: Response: No adverse reaction lp1 21:50 Drug: Rocephin (cefTRIAXone) 500 mg Route: IM; Site: right gluteus; lp1 22:07 Follow up: Response: No adverse reaction lp1 Disposition: 09/20 05:04 Co-signature as Attending Physician, Shane Solorzano MD. mh7 Disposition: 09/19/20 21:39 Discharged to Home. Impression: Rash and other nonspecific skin eruption, Unspecified sexually transmitted disease. - Condition is Stable. - Discharge Instructions: Sexually Transmitted Disease, Izvb-rj-Pbif, Rash, Xxpx-hc-Afnu, Allergies, Agdw-io-Tyqp. - Prescriptions for Pepcid 20 mg Oral Tablet - take 1 tablet by ORAL route every 12 hours for 5 days; 10 tablet. Prednisone 20 mg Oral Tablet - take 1 tablet by ORAL route once daily for 5 days; 5 tablet. - Medication Reconciliation Form, Thank You Letter, Antibiotic Education, Prescription Opioid Use form. - Follow up: Emergency Department; When: As needed; Reason: Worsening of condition. Follow up: Private Physician; When: 2 - 3 days; Reason: Recheck today's complaints, Continuance of care, Re-evaluation by your physician. Signatures: Katelin Denney FNP-C FNP-Barbara Dickens RN RN lp1 Shane Solorzano MD MD mh7 Corrections: (The following items were deleted from the chart) 09/19 22:08 21:39 09/19/2020 21:39 Discharged to Home. Impression: Rash and other nonspecific skin lp1 eruption; Unspecified sexually transmitted disease. Condition is Stable. Forms are Medication Reconciliation Form, Thank You Letter, Antibiotic Education, Prescription Opioid Use. Follow up: Emergency Department; When: As needed; Reason: Worsening of condition. Follow up: Private Physician; When: 2 - 3 days; Reason: Recheck today's complaints, Continuance of care, Re-evaluation by your physician. kb
[2020-09-19] MEDS ORDERED: FAMOTIDINE 20 MG TAB ONE (21:59)
[2020-09-19] MEDS ORDERED: CEFTRIAXONE 500 MG/VIAL ONE (21:59)
[2020-09-19] MEDS ORDERED: predniSONE 20 MG TAB ONE (21:59)
[2020-09-19] MEDS ORDERED: AZITHROMYCIN 250 MG TAB ONE (21:59)
[2020-09-19] MEDS ORDERED: WATER FOR INJ,STERILE 10 ML ONE (21:59)
== END 2020-09-19 22:08 | disposition home or self-care (01) ==
LOC: ER 21:10
DX: A64 Unspecified sexually transmitted disease (principal); F17.210 Nicotine dependence, cigarettes, uncomplicated
CPT/HCPCS: 96372; 99283; J0696; J7512

== ENCOUNTER 2021-10-09 01:10 | Emergency (ER) | payer SELFPAY ==
--- OUTSIDE RECORDS SUMMARY | 2021-10-09 03:10 | XMS REPORT | Continuity of Care Document ---
:1990 Author Organization [facility] t Address [address] [place] [place] [address] Care Team Providers Name Role Phone Amisha Taylor Attending Clinician Payers Payer Name Policy Type Policy Number Effective Date Expiration Date [facility] [id number] 2016 CHOICE MEDICAID 00:00:00 Problems This patient has no known problems. Allergies, Adverse Reactions, Alerts Allergy Allergy Status Severity Reaction(s) Onset Inactive Treating Comm ents Source Name Type Date Date Clinician NO KNOWN Drug Active [facility] Medications This patient has no known medications. Procedures This patient has no known procedures. Encounters Start End Encounter Admission Attending Care Care Encounter Source Date/Time Date/Time Type Type Clinicians Facility Department ID 2021-04-30 Emergency [facility] [id number] [facility] 05:22:20 [facility] 2021-04-30 Emergency [facility] [id number] [facility] 04:21:22 [facility] 2020-05-14 2020-05-14 Emergency [place], [place] [id number] 10:59:00 11:15:00 Viktor B LEFT HAND [id number] 2020-05-11 2020-05-11 Emergency [place], [facility] [id number] 09:34:00 11:03:00 Viktor B [place] [id number] Rena Lara [id number] [place] [id number] Results This patient has no known results.
--- NOTE | 2021-10-09 04:17 | ER ---
Nurse's Notes [facility] Name: Flaquita Leon Age: 31 yrs Sex: Female : 1990 Arrival Date: 10/09/2021 Time: 01:14 Bed 5 Private MD: Diagnosis: Threatened ;Other specified abnormal uterine and vaginal bleeding;Lower abdominal pain, unspecified Presentation: 10/09 01:36 Chief complaint: Patient states: she is and started bleeding earlier today bb with sharp lower abdominal pains. Coronavirus screen: At this time, the client does not indicate any symptoms associated with coronavirus-19. Ebola Screen: No symptoms or risks identified at this time. Initial Sepsis Screen: Does the patient meet any 2 criteria? No. Patient's initial sepsis screen is negative. Does the patient have a suspected source of infection? No. Patient's initial sepsis screen is negative. Risk Assessment: Do you want to hurt yourself or someone else? Patient reports no desire to harm self or others. Onset of symptoms was October 08, 2021. 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 - Social history:: Smoking status: Patient/guardian denies using tobacco, Stopped _ months ago 4. Screenin:30 Abuse screen: Denies threats or abuse. Denies injuries from another. Nutritional as6 screening: No deficits noted. Tuberculosis screening: No symptoms or risk factors identified. Fall Risk None identified. Assessment: 02:26 General: Appears in no apparent distress. Behavior is calm, cooperative. Pain:. Pain: as6 Complains of pain in abdomen Pain radiates to back. Neuro: Level of Consciousness is awake, alert, obeys commands, Oriented to person, place, time, situation. GI: Reports lower abdominal pain. : Urine is clear, Reports vaginal bleeding that is bright red. 02:55 Reassessment: Patient appears in no apparent distress at this time. as6 Vital Signs: 01:36 BP 107 / 68; Pulse 102; Resp 18 S; Temp 99.2(O); Pulse Ox 97% on R/A; Weight 95.25 kg bb (R); Height 5 ft. 7 in. (170.18 cm) (R); Pain 6/10; 02:54 BP 98 / 64; Pulse 86; Resp 16 S; Pulse Ox 100% on R/A; as6 04:00 BP 101 / 61; Pulse 90; Resp 18 S; Pulse Ox 100% on R/A; as6 05:00 BP 111 / 80; Pulse 74; Resp 20 S; Pulse Ox 97% on R/A; as6 01:36 Body Mass Index 32.89 (95.25 kg, 170.18 cm) bb ED Course: 01:14 Patient arrived in ED. kz 01:16 Chuy Franks DO is Attending Physician. ms3 01:37 Triage completed. bb 01:37 Arm band placed on Patient placed in an exam room, on a stretcher, on pulse oximetry. bb 01:39 Amber Ramirez, RN is Primary Nurse. lg3 02:20 Type And Screen Sent. as6 02:20 Basic Metabolic Panel Sent. as6 02:20 CBC with Diff Sent. as6 02:20 Quantitative Hcg Sent. as6 02:30 Bed in low position. Call light in reach. Side rails up X2. Pulse ox on. NIBP on. Warm as6 blanket given. 02:30 Urine --Ancillary (enter results) Sent. lg3 03:38 US OB Limited In Process Unspecified. EDMS 03:39 TRANSVAG OB CERVIX ASSESSMENT In Process Unspecified. EDMS 04:15 Endy Lindsey MD is Referral Physician. ms3 05:13 No provider procedures requiring assistance completed. Patient did not have IV access as6 during this emergency room visit. Administered Medications: 02:06 CANCELLED (Physician Discretion): Rho D Immune Globulin 300 mcg IM once kd3 05:13 Drug: RhoGAM (Human) 300 mcg Route: IM; Site: right deltoid; as6 05:13 Follow up: Response: No adverse reaction as6 Outcome: 04:17 Discharge ordered by . ms3 05:13 Discharged to home ambulatory. as6 05:13 Condition: stable 05:13 Discharge instructions given to patient, Instructed on discharge instructions, follow up and referral plans. Demonstrated understanding of instructions, follow-up care. 05:15 Patient left the ED. as6 Signatures: Dispatcher [employer] EDОльга Harris RN RN bb Amber Ramirez RN RN lg3 Chuy Franks DO DO ms3 Dipesh Vences RN RN as6 eLeanna Cintron Kyli RN kd3
--- NOTE | 2021-10-09 04:17 | EDPHYS ---
Physician Documentation [facility] Name: Flaquita Leon Age: 31 yrs Sex: Female : 1990 Arrival Date: 10/09/2021 Time: 01:14 Bed 5 Private MD: ED Physician Chuy Franks HPI: 10/09 02:09 This 31 yrs old Female presents to ER via Ambulatory with complaints of Vaginal ms3 Bleeding - 13-14 weeks . 02:09 The patient presents with vaginal bleeding that is light, reports using 1 pads or ms3 tampons per day. Onset: The symptoms/episode began/occurred acutely, 3 hour(s) ago. Modifying factors: The symptoms are alleviated by nothing, the symptoms are aggravated by nothing. Associated signs and symptoms: The patient has no apparent associated signs or symptoms. Severity of symptoms: At their worst the symptoms were moderate, in the emergency department the symptoms are unchanged. 31-year-old female with past medical history of anxiety, hypertension, seizures, spinal stenosis at 10 to 14 weeks gestation presents for vaginal bleeding that began 3 hours prior to arrival. Patient states she is having moderate lower abdominal cramping. Patient denies alleviating or inciting factors. Patient states she has gone through 1 pad over the last 3 hours.. 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 - Social history:: Smoking status: Patient/guardian denies using tobacco, Stopped _ months ago 4. ROS: 02:09 Constitutional: Negative for fever, and chills. Eyes: Negative for injury, pain, ms3 redness, and discharge, Neck: Negative for injury, pain, and swelling, Cardiovascular: Negative for chest pain, and palpitations. Respiratory: Negative for shortness of breath, cough, wheezing, and pleuritic chest pain, Back: Negative for injury and pain, MS/Extremity: Negative for injury and deformity, Skin: Negative for injury, rash, and discoloration. 02:09 Abdomen/GI: Positive for abdominal pain. 02:09 : Positive for vaginal bleeding. Exam: 02:09 Constitutional: This is a well developed, well nourished patient who is awake, alert, ms3 and in no acute distress. Head/Face: Normocephalic, atraumatic. Neck: Trachea midline, no cervical lymphadenopathy. Supple, full range of motion without nuchal rigidity, or vertebral point tenderness. No Meningismus. Chest/axilla: Normal chest wall appearance and motion. Nontender with no deformity. Cardiovascular: Regular rate and rhythm with a normal S1 and S2. No gallops, murmurs, or rubs. Normal PMI, no JVD. No pulse deficits. Respiratory: Lungs have equal breath sounds bilaterally, clear to auscultation and percussion. No rales, rhonchi or wheezes noted. No increased work of breathing, no retractions or nasal flaring. Abdomen/GI: Soft, non-tender, with normal bowel sounds. No distension or tympany. No guarding or rebound. No evidence of tenderness throughout. Skin: Warm, dry with normal turgor. Normal color with no rashes, no lesions, and no evidence of cellulitis. MS/ Extremity: Pulses equal, no cyanosis. Neurovascular intact. Full, normal range of motion. Neuro: Awake and alert, GCS 15, oriented to person, place, time, and situation. Cranial nerves II-XII grossly intact. Motor strength 5/5 in all extremities. Sensory grossly intact. Cerebellar exam normal. Normal gait. Psych: Awake, alert, with orientation to person, place and time. Behavior, mood, and affect are within normal limits. Vital Signs: 01:36 BP 107 / 68; Pulse 102; Resp 18 S; Temp 99.2(O); Pulse Ox 97% on R/A; Weight 95.25 kg bb (R); Height 5 ft. 7 in. (170.18 cm) (R); Pain 6/10; 02:54 BP 98 / 64; Pulse 86; Resp 16 S; Pulse Ox 100% on R/A; as6 04:00 BP 101 / 61; Pulse 90; Resp 18 S; Pulse Ox 100% on R/A; as6 05:00 BP 111 / 80; Pulse 74; Resp 20 S; Pulse Ox 97% on R/A; as6 01:36 Body Mass Index 32.89 (95.25 kg, 170.18 cm) bb MDM: 02:02 Patient medically screened. ms3 02:09 Differential diagnosis: abruptio placentae, placenta previa. ms3 06:00 Data reviewed: vital signs, nurses notes, lab test result(s), radiologic studies, ms3 ultrasound. Data interpreted: Pulse oximetry: on room air is 97 %. Interpretation: normal. Counseling: I had a detailed discussion with the patient and/or guardian regarding: the historical points, exam findings, and any diagnostic results supporting the discharge/admit diagnosis, lab results, radiology results, the need for outpatient follow up, to return to the emergency department if symptoms worsen or persist or if there are any questions or concerns that arise at home. ED course: Discussed labs and ultrasound findings with patient. Patient to follow-up with her life advisor in 2 to 3 days. Patient understands and agrees with plan. All questions were answered. Return precautions discussed include worsening symptoms, or any other concerns. On reevaluation patient is alert and oriented x4, no apparent distress, nontoxic, ambulatory in emergency department. 10/09 01:38 Order name: Basic Metabolic Panel ms3 10/09 01:38 Order name: CBC with Diff ms3 10/09 01:38 Order name: Quantitative Hcg ms3 10/09 02:07 Order name: Type And Screen ms3 10/09 02:27 Order name: Urine Dipstick-Ancillary EDMS 10/09 02:29 Order name: Urine --Ancillary (enter results) cs9 10/09 01:38 Order name: Labs collected and sent; Complete Time: 02:20 ms3 10/09 01:38 Order name: NPO; Complete Time: 02:03 ms3 10/09 01:38 Order name: US OB Limited ms3 10/09 02:55 Order name: TRANSVAG OB CERVIX ASSESSMENT EDMS 10/09 05:03 Order name: Rhogam EDMS 10/09 01:38 Order name: Urine Dipstick-Ancillary (obtain specimen); Complete Time: 02:26 ms3 Administered Medications: 02:06 CANCELLED (Physician Discretion): Rho D Immune Globulin 300 mcg IM once kd3 05:13 Drug: RhoGAM (Human) 300 mcg Route: IM; Site: right deltoid; as6 05:13 Follow up: Response: No adverse reaction as6 Disposition Summary: 10/09/21 04:17 Discharge Ordered Location: Home ms3 Condition: Stable ms3 Diagnosis - Threatened ms3 - Other specified abnormal uterine and vaginal bleeding ms3 - Lower abdominal pain, unspecified ms3 Followup: ms3 - With: Endy Lindsey MD - When: 2 - 3 days - Reason: Re-evaluation by your physician Discharge Instructions: - Discharge Summary Sheet ms3 - Abdominal Pain During ms3 - Vaginal Bleeding During , Second Trimester ms3 Forms: - Medication Reconciliation Form ms3 - Thank You Letter ms3 - Antibiotic Education ms3 - Prescription Opioid Use ms3 Signatures: Dispatcher [employer] EDОльга Harris RN RN bb Sims, Marcus, DO DO ms3 Dipesh Vences RN RN as6 Susanne Gleason RN RN kd3 Corrections: (The following items were deleted from the chart) 02:06 01:38 Rho D Immune Globulin 300 mcg IM once ordered. ms3 kd3 02:06 02:06 Rho D Immune Globulin 300 mcg IM once ordered. kd3 kd3
[2021-10-09] MEDS ORDERED: Rho(D) IG (HUMAN) 300 MCG SYR IM ONE (04:41)
[2021-10-09 07:41] VITALS: TEMP 99.2
[2021-10-09 07:46] VITALS: BP 111/80; O2SAT 97
--- NOTE | 2021-10-10 14:26 | RAD REPORT ---
EXAM DESCRIPTION: US - TRANSVAG OB CERVIX ASSESSMENT - 10/09/2021 3:37 am CLINICAL HISTORY: 31 years Female, VAGINAL BLEEDING COMPARISON: None. TECHNIQUE: Limited greater than 14 week obstetrical ultrasound. Transvaginal imaging of the cervix. FINDINGS: measurements: AC: 10.75 cm compatible with an estimated gestational age of 16 weeks, 4 days. FL: 1.74 cm compatible with an estimated gestational age of 15 weeks, 1 days. Composite gestational age of 15 weeks, 6days. Estimated delivery date: 03/27/2022 by today's ultrasound. SHERMAN: Qualitatively normal appearing amniotic fluid volume without measurements provided. Placenta: Posterior, placental leal Cervical length: 4.0 cm. Minimal fluid in the cervical canal which is otherwise closed. presentation: Breech heart rate: 149 bpm. Anatomic survey: Overall anatomic survey is suboptimal. Timing is also suboptimal for characterizatio n. Heart: 4 chambers. Stomach: No definite abnormality identified. Bladder: No definite abnormality identified. Umbilical cord. Dedicated imaging was not provided. Spine: No definite abnormalities of the visualized portions of the spineA cine loop was not performed . Kidneys: No definite abnormalities. IMPRESSION: 1. Single live intrauterine with estimated gestational age of 15 weeks, 6 days by today's ultrasound. heart rate of 149 beats for minute. 2. No definite abnormality on limited organ survey. However, overall evaluation for amniotic fl uid volume and measurements is suboptimal. Follow-up ultrasound later in the second trimester m ay be beneficial for more complete evaluation. 3. The cervix is closed measuring 4.0 cm. Minimal fluid in the cervix may be physiologic. Electronically signed by: Marcial Taylor 10/09/2021 3:57 AM CDT Due to temporary technical issues with the PACS/Fluency reporting system, reports are being signed by the in house radiologist without review as a courtesy to ensure prompt reporting. The interpreting r adiologist is fully responsible for the content of the report.
--- NOTE | 2021-10-10 14:56 | RAD REPORT ---
EXAM DESCRIPTION: US - OB Limited - 10/09/2021 3:37 am CLINICAL HISTORY: 31 years Female, VAGINAL BLEEDING COMPARISON: None. TECHNIQUE: Limited greater than 14 week obstetrical ultrasound. Transvaginal imaging of the cervix. FINDINGS: measurements: AC: 10.75 cm compatible with an estimated gestational age of 16 weeks, 4 days. FL: 1.74 cm compatible with an estimated gestational age of 15 weeks, 1 days. Composite gestational age of 15 weeks, 6days. Estimated delivery date: 03/27/2022 by today's ultrasound. SHERMAN: Qualitatively normal appearing amniotic fluid volume without measurements provided. Placenta: Posterior, placental leal Cervical length: 4.0 cm. Minimal fluid in the cervical canal which is otherwise closed. presentation: Breech heart rate: 149 bpm. Anatomic survey: Overall anatomic survey is suboptimal. Timing is also suboptimal for characterizatio n. Heart: 4 chambers. Stomach: No definite abnormality identified. Bladder: No definite abnormality identified. Umbilical cord. Dedicated imaging was not provided. Spine: No definite abnormalities of the visualized portions of the spineA cine loop was not performed . Kidneys: No definite abnormalities. IMPRESSION: 1. Single live intrauterine with estimated gestational age of 15 weeks, 6 days by today's ultrasound. heart rate of 149 beats for minute. 2. No definite abnormality on limited organ survey. However, overall evaluation for amniotic fl uid volume and measurements is suboptimal. Follow-up ultrasound later in the second trimester m ay be beneficial for more complete evaluation. 3. The cervix is closed measuring 4.0 cm. Minimal fluid in the cervix may be physiologic. Electronically signed by: Marcial Taylor 10/09/2021 3:57 AM CDT Due to temporary technical issues with the PACS/Fluency reporting system, reports are being signed by the in house radiologist without review as a courtesy to ensure prompt reporting. The interpreting r adiologist is fully responsible for the content of the report.
== END 2021-10-09 05:15 | disposition home or self-care (01) ==
LOC: ER 01:10
DX: O20.0 Threatened abortion (principal); O26.892 Other specified pregnancy related conditions, second trimester; Z3A.14 14 weeks gestation of pregnancy; Z91.040 Latex allergy status; Z91.048 Other nonmedicinal substance allergy status
CPT/HCPCS: 36415; 76815; 76817; 80048; 81003; 81025; 84702; 85025; 86850; 86900; 86901; 96372; 99284; J2790

== ENCOUNTER 2021-10-18 19:56 | Emergency (ER) | payer SELFPAY ==
[2011-11-03 05:09] VITALS: BP 117/68
--- OUTSIDE RECORDS SUMMARY | 2021-10-18 19:59 | XMS REPORT | Continuity of Care Document ---
:1990 Author Organization [facility] t Address [address] [place] [place] [address] Care Team Providers Name Role Phone Amisha Taylor Attending Clinician Payers Payer Name Policy Type Policy Number Effective Date Expiration Date [facility] [id number] 2016 CHOICE MEDICAID 00:00:00 Problems This patient has no known problems. Allergies, Adverse Reactions, Alerts Allergy Allergy Status Severity Reaction(s) Onset Inactive Treating Comm ents Source Name Type Date Date Clinician NO KNOWN Drug Active [facility] Medications This patient has no known medications. Procedures This patient has no known procedures. Encounters Start End Encounter Admission Attending Care Care Encounter Source Date/Time Date/Time Type Type Clinicians Facility Department ID 2021-04-30 Emergency [facility] [id number] Univers 05:22:[address] [facility] 2021-04-30 Emergency [facility] [id number] Univers 04:21:[address] [facility] 2020-05-14 2020-05-14 Emergency [place], [place] [id number] 10:59:00 11:15:00 Viktor B [place] [id number] 2020-05-11 2020-05-11 Emergency Allan, [facility] [id number] 09:34:00 11:03:00 Viktor B [place] [id number] [place] [id number] [place] [id number] Results This patient has no known results.
--- NOTE | 2021-10-18 21:45 | ER ---
Nurse's Notes [facility] Name: Flaquita Leon Age: 31 yrs Sex: Female : 1990 Arrival Date: 10/18/2021 Time: 20:04 Bed Waiting Private MD: Diagnosis: ED Course: 10/18 20:04 Patient arrived in ED. kz 21:02 Oliver Ramirez PA is PHCP. cp 21:02 Shane Solorzano MD is Attending Physician. cp 21:08 Patient's name was called from ER [place]. No response. lp1 21:10 Dipesh Vences, SLOAN is Primary Nurse. as6 21:30 Patient's name was called from ER [place]. No response. Unable to locate patient. Will lp1 disposition as left without being seen by a provider. Administered Medications: No medications were administered Outcome: 21:45 Patient left the ED. lp1 Signatures: Barbara Torres RN RN lp1 Oliver Ramirez PA PA cp Slawson, Ashby, SLOAN RN as6 Leeanna Cintron
== END 2021-10-18 21:45 | disposition left against medical advice (07) ==
LOC: ER 19:56
DX: Z02.9 Encounter for administrative examinations, unspecified (principal)

== ENCOUNTER 2021-12-22 21:07 | Emergency (ER) | payer SELFPAY ==
--- OUTSIDE RECORDS SUMMARY | 2021-12-22 21:11 | XMS REPORT | Continuity of Care Document ---
:1990 Author Organization [facility] t Address [address] [place] [place] [address] Care Team Providers Name Role Phone Amisha Taylor Attending Clinician Payers Payer Name Policy Type Policy Number Effective Date Expiration Date [facility] [id number] 2016 CHOICE MEDICAID 00:00:00 Problems This patient has no known problems. Allergies, Adverse Reactions, Alerts Allergy Allergy Status Severity Reaction(s) Onset Inactive Treating Comm ents Source Name Type Date Date Clinician NO KNOWN Drug Active [facility] Class it[facility] of [facility] Medications This patient has no known medications. Procedures This patient has no known procedures. Encounters Start End Encounter Admission Attending Care Care Encounter Source Date/Time Date/Time Type Type Clinicians Facility Department ID 2021-04-30 Emergency [facility] [id number] Univers 05:22:[address] [facility] 2021-04-30 Emergency [facility] [id number] Univers 04:21:[address] [facility] 2020-05-14 2020-05-14 Emergency [place], [place] [id number] 10:59:00 11:15:00 Viktor B [place] [id number] 2020-05-11 2020-05-11 Emergency Allan, [facility] [id number] 09:34:00 11:03:00 Viktor B [place] [id number] [place] [id number] [place] [id number] [id number] Results This patient has no known results.
[2021-12-22] MEDS ORDERED: NA CHLORIDE 0.9% 500 ML ONE (21:45)
[2021-12-22 21:51] LABS: Urine Blood Negative (Negative); Urine Glucose Negative (Negative); Urine Protein 1+ (Negative); Urine Specific Gravity >=1.030 (1.005-1.030)
--- NOTE | 2021-12-22 21:56 | RAD REPORT ---
EXAM DESCRIPTION: RAD - Chest Single View - 12/22/2021 9:38 pm CLINICAL HISTORY: COUGH COMPARISON: CHEST PA AND LAT 2 VIEW dated 11/03/2011 FINDINGS: Lines: None. Lungs: No evidence of edema or pneumonia. Pleural: No significant pleural effusions or pneumothorax. Cardiac: The heart size is within normal limits. Bones: No acute fractures. Other: IMPRESSION: No acute cardiopulmonary disease.
[2021-12-22 22:00] LABS: Absolute Lymphocytes (CBC) 1.6 K/uL (0.7-4.9); Hematocrit 37.8 % (36.0-45.0); Lymphocytes % 19.4 % (15.3-44.8)
[2021-12-22 22:08] LABS: Protime INR 1.12
[2021-12-22 22:28] LABS: ALT/SGPT 16 U/L (12-78); AST/SGOT 10 U/L (15-37); Albumin 3.9 g/dL (3.4-5.0); Alkaline Phosphatase 71 U/L (45-117); BUN Blood Urea Nitrogen 12 mg/dL (7-18); Bicarbonate 24 mmol/L (21-32); Bilirubin Direct 0.4 mg/dL (0-0.2); Bilirubin Total 2.1 mg/dL (0.2-1.0); Glomerular Filtration Rate 102 ml/min (=/>90); Glucose Level 82 mg/dL (74-106); Magnesium 2.2 mg/dL (1.8-2.4); NT PRO-BNP 12 pg/mL (<125); Potassium 3.2 mmol/L (3.5-5.1); Protein, Total 7.6 g/dL (6.4-8.2); Sodium Level 135 mmol/L (136-145)
[2021-12-22 22:29] LABS: Troponin High Sensitivity < 3.0 pg/mL (<58.9)
--- NOTE | 2021-12-22 22:35 | ER ---
Nurse's Notes [facility] Name: Flaquita Leon Age: 31 yrs Sex: Female : 1990 Arrival Date: 12/22/2021 Time: 21:09 Bed 7 Private MD: Diagnosis: Cellulitis and acute lymphangitis of other parts of limb-bilateral lower ;Hypokalemia Presentation: 12/22 21:24 Chief complaint: Patient states: "My feet and legs are swollen and have red mace on vc1 them. I can barely walk on them they hurt so bad.". Coronavirus screen: Vaccine status: Patient reports receiving the 1st dose of the Covid vaccine. J\\T\\J At this time, the client does not indicate any symptoms associated with coronavirus-19. Ebola Screen: No symptoms or risks identified at this time. Initial Sepsis Screen: Does the patient meet any 2 criteria? HR > 90 bpm. No. Patient's initial sepsis screen is negative. Does the patient have a suspected source of infection? No. Patient's initial sepsis screen is negative. Risk Assessment: Do you want to hurt yourself or someone else? Patient reports no desire to harm self or others. Onset of symptoms was December 21, 2021. 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 - Social history:: Smoking status: Patient reports the use of cigarette tobacco products, smokes one pack cigarettes per day. - Family history:: not pertinent. Screenin:02 Abuse screen: Denies threats or abuse. Denies injuries from another. Nutritional kd3 screening: No deficits noted. Tuberculosis screening: No symptoms or risk factors identified. Fall Risk IV access (20 points). Assessment: 22:01 General: Appears in no apparent distress. Behavior is calm, cooperative. Pain: kd3 Complains of pain in lateral aspect of left calf, left lateral ankle and lateral aspect of left foot. Neuro: Level of Consciousness is awake, alert, obeys commands, Oriented to person, place, time, situation. Cardiovascular: Patient's skin is warm and dry. Respiratory: Airway is patent Trachea midline Respiratory effort is even, unlabored. 23:49 Reassessment: Patient and/or family updated on plan of care and expected duration. Pain kd3 level reassessed. Patient is alert, oriented x 3, equal unlabored respirations, skin warm/dry/pink. 12/23 00:34 Reassessment: pt awaiting completion of IV ABX. ok to D/C when complete. kd3 Vital Signs: 12/22 21:24 BP 128 / 89 RA Sitting (man/reg); Pulse 90 RA; Resp 16 S; Temp 98.0(O); Pulse Ox 100% vc1 on R/A; Weight 90.72 kg (R); Height 5 ft. 4 in. (162.56 cm) (R); Pain 9/10; 23:05 BP 108 / 72; Pulse 87; Resp 19 S; Pulse Ox 100% on R/A; as6 23:48 BP 107 / 64; Pulse 92; Resp 18; Pulse Ox 100% on R/A; kd3 12/23 00:31 BP 101 / 62; Pulse 100; Resp 23 S; Pulse Ox 100% on R/A; as6 01:56 BP 107 / 64; Pulse 98; Resp 19; Pulse Ox 100% on R/A; kd3 12/22 21:24 Body Mass Index 34.33 (90.72 kg, 162.56 cm) vc1 ED Course: 12/22 21:09 Patient arrived in ED. as 21:27 Triage completed. vc1 21:27 Arm band placed on left wrist. vc1 21:29 Oliver Roland MD is Attending Physician. dameon 21:32 Dipesh Vences, SLOAN is Primary Nurse. as6 21:40 XRAY Chest (1 view) In Process Unspecified. EDMS 21:46 Inserted saline lock: 22 gauge in left antecubital area, using aseptic technique. Blood ds4 collected. 22:02 Patient has correct armband on for positive identification. Placed in gown. Bed in low kd3 position. Call light in reach. 22:02 No provider procedures requiring assistance completed. kd3 22:33 Tim Fontaine MD is Hospitalizing Provider. dameon 22:38 US Extremity Venous W Compression Amari In Process Unspecified. EDMS 22:53 Foot Right 3 View XRAY In Process Unspecified. EDMS 12/23 01:55 IV discontinued, intact, bleeding controlled, No redness/swelling at site. Pressure kd3 dressing applied. Administered Medications: 12/22 21:45 Drug: NS 0.9% 500 ml Route: IV; Rate: bolus; Site: left antecubital; as6 12/23 00:19 Follow up: IV Status: Completed infusion kd3 00:35 Follow up: Response: No adverse reaction; IV Status: Completed infusion kd3 12/22 22:56 Drug: NS 0.9% 1000 ml Route: IV; Rate: 1 bolus; Site: left antecubital; as6 12/23 00:19 Follow up: IV Status: Completed infusion kd3 00:35 Follow up: Response: No adverse reaction; IV Status: Completed infusion kd3 12/22 23:18 Drug: levofloxacin 750 mg Volume: 150 ml; Route: IVPB; Infused Over: 90 mins; Site: as6 left antecubital; 12/23 00:19 Follow up: IV Status: Completed infusion kd3 00:35 Follow up: Response: No adverse reaction; IV Status: Completed infusion kd3 12/22 23:18 Drug: Potassium Effervescent Tablet 50 mEq Route: PO; as6 12/23 00:20 Follow up: Response: No adverse reaction kd3 00:35 Follow up: Response: No adverse reaction kd3 01:56 Follow up: Response: No adverse reaction kd3 00:30 Drug: Doxycycline 200 mg Route: PO; kd3 00:35 Follow up: Response: No adverse reaction kd3 01:56 Follow up: Response: No adverse reaction kd3 00:30 Drug: KeFLEX (cephalexin) 500 mg Route: PO; kd3 00:35 Follow up: Response: No adverse reaction kd3 01:56 Follow up: Response: No adverse reaction kd3 00:33 Drug: vancoMYCIN 2 grams Route: IVPB; Rate: calculated rate; Site: left antecubital; kd3 01:51 Follow up: Response: No adverse reaction; IV Status: Completed infusion kd3 01:51 Drug: Benadryl (diphenhydrAMINE) 25 mg Route: IVP; Site: right antecubital; kd3 01:56 Follow up: Response: No adverse reaction kd3 Medication: 12/22 22:02 VIS not applicable for this client. kd3 Outcome: 22:34 Decision to Hospitalize by Provider. [facility] 12/23 00:31 Discharge ordered by . dameon 01:55 Discharged to home ambulatory. kd3 01:55 Condition: stable 01:55 Discharge instructions given to patient, Instructed on discharge instructions, follow up and referral plans. medication usage, Demonstrated understanding of instructions, follow-up care, medications, Prescriptions given X 2. 01:57 Patient left the ED. kd3 Signatures: Dispatcher [employer] EDMS Oliver Roland MD MD cha Martinez, Amelia as Luis Castro ds4 Dipesh Vences RN RN as6 Susanne Gleason RN RN kd3 Carie Puente RN RN vc1 Corrections: (The following items were deleted from the chart) 12/22 21:28 21:27 Allergies: Latex, Natural Rubber; vc1 vc1 :28 21:27 Allergies: No Known Allergies; vc1 vc1 :28 21:27 PMHx: Anxiety; vc1 vc1 :28 21:27 PMHx: Hypertension; vc1 vc1
--- NOTE | 2021-12-22 22:35 | EDPHYS ---
Physician Documentation [facility] Name: Flaquita Leon Age: 31 yrs Sex: Female : 1990 Arrival Date: 12/22/2021 Time: 21:09 Bed 7 Private MD: ED Physician Oliver Roland HPI: 12/22 22:28 This 31 yrs old Female presents to ER via Ambulatory with complaints of Feet Swelling, dameon Leg Swelling, Skin Problem. 22:28 The patient presents with decreased range of motion, pain. The complaints affect the dameon right leg and left leg. Context: The problem was sustained at an unknown site. Onset: The symptoms/episode began/occurred 2 day(s) ago. Modifying factors: The symptoms are alleviated by elevating leg, remaining still, the symptoms are aggravated by movement, weight bearing. Associated signs and symptoms: The patient has no apparent associated signs or symptoms. Treatment prior to arrival includes: no previous treatment. Severity of symptoms: At their worst the symptoms were moderate, in the emergency department the symptoms are unchanged. The patient has not experienced similar symptoms in the past. 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 - Social history:: Smoking status: Patient reports the use of cigarette tobacco products, smokes one pack cigarettes per day. - Family history:: not pertinent. ROS: 22:28 Constitutional: Negative for fever, chills, and weight loss, Eyes: Negative for injury, dameon pain, redness, and discharge, ENT: Negative for injury, pain, and discharge, Neck: Negative for injury, pain, and swelling, Cardiovascular: Negative for chest pain, palpitations, and edema, Respiratory: Negative for shortness of breath, cough, wheezing, and pleuritic chest pain, Abdomen/GI: Negative for abdominal pain, nausea, vomiting, diarrhea, and constipation, Back: Negative for injury and pain, : Negative for injury, bleeding, discharge, and swelling, Skin: Negative for injury, rash, and discoloration, Neuro: Negative for headache, weakness, numbness, tingling, and seizure, Psych: Negative for depression, anxiety, suicide ideation, homicidal ideation, and hallucinations, Allergy/Immunology: Negative for hives, rash, and allergies, Endocrine: Negative for neck swelling, polydipsia, polyuria, polyphagia, and marked weight changes, Hematologic/Lymphatic: Negative for swollen nodes, abnormal bleeding, and unusual bruising. 22:28 MS/extremity: Positive for erythema, pain, swelling, tenderness, of the right leg and left leg. Exam: 22:28 Constitutional: This is a well developed, well nourished patient who is awake, alert, dameon and in no acute distress. Head/Face: Normocephalic, atraumatic. Eyes: Pupils equal round and reactive to light, extra-ocular motions intact. Lids and lashes normal. Conjunctiva and sclera are non-icteric and not injected. Cornea within normal limits. Periorbital areas with no swelling, redness, or edema. ENT: Nares patent. No nasal discharge, no septal abnormalities noted. Tympanic membranes are normal and external auditory canals are clear. Oropharynx with no redness, swelling, or masses, exudates, or evidence of obstruction, uvula midline. Mucous membranes moist. Neck: Trachea midline, no thyromegaly or masses palpated, and no cervical lymphadenopathy. Supple, full range of motion without nuchal rigidity, or vertebral point tenderness. No Meningismus. Chest/axilla: Normal chest wall appearance and motion. Nontender with no deformity. No lesions are appreciated. Cardiovascular: Regular rate and rhythm with a normal S1 and S2. No gallops, murmurs, or rubs. Normal PMI, no JVD. No pulse deficits. Respiratory: Lungs have equal breath sounds bilaterally, clear to auscultation and percussion. No rales, rhonchi or wheezes noted. No increased work of breathing, no retractions or nasal flaring. Abdomen/GI: Soft, non-tender, with normal bowel sounds. No distension or tympany. No guarding or rebound. No evidence of tenderness throughout. Back: No spinal tenderness. No costovertebral tenderness. Full range of motion. Skin: Warm, dry with normal turgor. Normal color with no rashes, no lesions, and no evidence of cellulitis. Neuro: Awake and alert, GCS 15, oriented to person, place, time, and situation. Cranial nerves II-XII grossly intact. Motor strength 5/5 in all extremities. Sensory grossly intact. Cerebellar exam normal. Normal gait. Psych: Awake, alert, with orientation to person, place and time. Behavior, mood, and affect are within normal limits. 22:28 Musculoskeletal/extremity: ROM: full active range of motion, full passive range of motion, Circulation is intact in all extremities. Sensation intact. Compartment Syndrome exam of affected extremity: is normal. DVT Exam: negative Homans' sign noted on exam, no appreciated bluish discoloration, no erythema, no increased warmth, pain, swelling, tenderness. 22:28 Skin: cellulitis, that is moderate, well demarcated, on the right leg and left leg, induration, that is mild is noted, injury, is not appreciated, lesion(s), are not present, no rash present. 22:36 ECG was reviewed by the Attending Physician. [facility] Vital Signs: 21:24 BP 128 / 89 RA Sitting (man/reg); Pulse 90 RA; Resp 16 S; Temp 98.0(O); Pulse Ox 100% vc1 on R/A; Weight 90.72 kg (R); Height 5 ft. 4 in. (162.56 cm) (R); Pain 9/10; 23:05 BP 108 / 72; Pulse 87; Resp 19 S; Pulse Ox 100% on R/A; as6 23:48 BP 107 / 64; Pulse 92; Resp 18; Pulse Ox 100% on R/A; kd3 12/23 00:31 BP 101 / 62; Pulse 100; Resp 23 S; Pulse Ox 100% on R/A; as6 01:56 BP 107 / 64; Pulse 98; Resp 19; Pulse Ox 100% on R/A; kd3 12/22 21:24 Body Mass Index 34.33 (90.72 kg, 162.56 cm) vc1 MDM: 12/22 21:29 Patient medically screened. [facility] 22:35 Differential diagnosis: contusion, abrasion, tendonitis. Data reviewed: vital signs, [facility] nurses notes, lab test result(s), EKG, radiologic studies, doppler, plain films. Data interpreted: monitoring engineer: rate is 90 beats/min, rhythm is regular, Pulse oximetry: on room air is 100 %. Test interpretation: by ED physician or midlevel provider: ECG, plain radiologic studies. Counseling: I had a detailed discussion with the patient and/or guardian regarding: the historical points, exam findings, and any diagnostic results supporting the discharge/admit diagnosis, lab results, radiology results, the need for further work-up and treatment in the hospital. 12/22 21:30 Order name: Basic Metabolic Panel; Complete Time: 22:39 [facility] 12/22 21:30 Order name: CBC with Diff; Complete Time: 22:28 [facility] 12/22 21:30 Order name: LFT's; Complete Time: 22:39 [facility] 12/22 21:30 Order name: Magnesium; Complete Time: 22:39 [facility] 12/22 21:30 Order name: NT PRO-BNP; Complete Time: 22:39 [facility] 12/22 21:30 Order name: PT-INR; Complete Time: 22:28 [facility] 12/22 21:30 Order name: Troponin HS; Complete Time: 22:39 [facility] 12/22 21:30 Order name: XRAY Chest (1 view); Complete Time: 22:28 [facility] 12/22 21:30 Order name: US Extremity Venous W Compression Amari [facility] 12/22 21:52 Order name: Urine Dipstick-Ancillary; Complete Time: 22:28 [facility] 12/22 22:23 Order name: COVID-19 SARS RT PCR (Document "Date of Onset" if Symptomatic) as6 12/22 22:28 Order name: Blood Culture Adult (2) [facility] 12/22 22:28 Order name: Lactate; Complete Time: 23:28 [facility] 12/22 21:30 Order name: EKG; Complete Time: 21:31 [facility] 12/22 21:30 Order name: Cardiac monitoring; Complete Time: 22:00 [facility] 12/22 21:30 Order name: EKG - Nurse/Tech; Complete Time: 22:00 [facility] 12/22 21:30 Order name: IV Saline Lock; Complete Time: 21:42 12/22 21:30 Order name: Labs collected and sent; Complete Time: 21:42 [facility] 12/22 21:30 Order name: O2 Per Protocol; Complete Time: 21:46 [facility] 12/22 21:30 Order name: O2 Sat Monitoring; Complete Time: 21:46 [facility] 12/22 22:37 Order name: Foot Right 3 View XRAY 12/22 21:30 Order name: Urine Dipstick-Ancillary (obtain specimen); Complete Time: 21:50 [facility] 12/22 21:30 Order name: Urine Test (obtain specimen); Complete Time: 21:50 [facility] EC:36 Rate is 86 beats/min. Rhythm is regular. QRS [place] is Normal. [place] interval is normal. QRS dameon interval is normal. QT interval is normal. No Q waves. T waves are Normal. No ST changes noted. Clinical impression: NSR w/ Non-specific ST/T Changes and No evidence of ischemia. Interpreted by me. Reviewed by me. Administered Medications: 21:45 Drug: NS 0.9% 500 ml Route: IV; Rate: bolus; Site: left antecubital; 12/23 00:19 Follow up: IV Status: Completed infusion kd3 00:35 Follow up: Response: No adverse reaction; IV Status: Completed infusion 12/22 22:56 Drug: NS 0.9% 1000 ml Route: IV; Rate: 1 bolus; Site: left antecubital; 12/23 00:19 Follow up: IV Status: Completed infusion kd3 00:35 Follow up: Response: No adverse reaction; IV Status: Completed infusion 12/22 23:18 Drug: levofloxacin 750 mg Volume: 150 ml; Route: IVPB; Infused Over: 90 mins; Site: [facility] left antecubital; 12/23 00:19 Follow up: IV Status: Completed infusion kd3 00:35 Follow up: Response: No adverse reaction; IV Status: Completed infusion 12/22 23:18 Drug: Potassium Effervescent Tablet 50 mEq Route: PO; 12/23 00:20 Follow up: Response: No adverse reaction kd3 00:35 Follow up: Response: No adverse reaction kd3 01:56 Follow up: Response: No adverse reaction kd3 00:30 Drug: Doxycycline 200 mg Route: PO; kd3 00:35 Follow up: Response: No adverse reaction kd3 01:56 Follow up: Response: No adverse reaction kd3 00:30 Drug: KeFLEX (cephalexin) 500 mg Route: PO; kd3 00:35 Follow up: Response: No adverse reaction kd3 01:56 Follow up: Response: No adverse reaction kd3 00:33 Drug: vancoMYCIN 2 grams Route: IVPB; Rate: calculated rate; Site: left antecubital; kd3 01:51 Follow up: Response: No adverse reaction; IV Status: Completed infusion kd3 01:51 Drug: Benadryl (diphenhydrAMINE) 25 mg Route: IVP; Site: right antecubital; kd3 01:56 Follow up: Response: No adverse reaction kd3 Disposition Summary: 12/23/21: Discharge Ordered Location: Home(12/23/21 00:31) dameon Problem: new(12/23/21:) dameon Symptoms: are unchanged(12/23/21:) dameon Condition: Stable(12/23/21:) dameon Diagnosis - Cellulitis and acute lymphangitis of other parts of limb - bilateral lower dameon (12/23/21:) - Hypokalemia(12/23/21:) dameon Followup: dameon - With: Private Physician - When: Today - Reason: Recheck today's complaints, Continuance of care, Re-evaluation by your physician Discharge Instructions: - Discharge Summary Sheet dameon - Cellulitis, Adult dameon - Potassium Content of Foods dameon - Cellulitis, Adult, [id number] dameon - Hypokalemia admeon Forms: - Medication Reconciliation Form dameon - Thank You Letter dameon - Antibiotic Education dameon - Prescription Opioid Use dameon Prescriptions: - Cephalexin 500 mg Oral Capsule - take 1 capsule by ORAL route every 6 hours for 10 days; 40 capsule; Refills: 0, dameon Product Selection Permitted - Doxycycline Hyclate 100 mg Oral Tablet - take 1 tablet by ORAL route every 12 hours; 20 tablet; Refills: 0, Product dameon Selection Permitted Signatures: Dispatcher [employer] [facility] Oliver Roland MD MD cha Attema, Lee, BUILDING CONSTRUCTION INSPECTOR-C BUILDING CONSTRUCTION INSPECTOR-Cla1 Dipesh Vences RN RN as6 Susanne Gleason RN RN kd3 Carie Puente RN RN vc1 Corrections: (The following items were deleted from the chart) 12/22 20: 21:27 Allergies: Latex, Natural Rubber; vc1 vc1 21:27 Allergies: No Known Allergies; vc1 vc1 21:27 PMHx: Anxiety; vc1 vc1 21:27 PMHx: Hypertension; vc1 vc1 12/23 00:12/22 22:34 Observation [facility] 12/23 00:12/22 22:34 Tim Fontaine cha [facility] 12/23 00:12/22 22:34 Telemetry/MedSurg (Inpatient) [facility] 12/23 00:12/22 22:34 Stable dameon [facility] 12/23 00:12/22 22:34 new [facility] 12/23 00:12/22 22:34 have improved [facility] 12/23 00:12/22 22:34 Standard [facility] 12/23 00:12/22 22:34 dameon [facility] 12/23 00:12/22 22:34 Cellulitis and acute lymphangitis of other parts of limb - bilateral lower dameon extremities [facility] 12/23 00:12/22 23:28 Hypokalemia [facility]
[2021-12-22] MEDS ORDERED: Levofloxacin 750mg IV 750 MG/150 ML BAG IV ONE (22:47)
[2021-12-22] MEDS ORDERED: NA CHLORIDE 0.9% 250 ML ONE (22:47)
[2021-12-22] MEDS ORDERED: VANCOMYCIN 1 GM/VIAL ONE (22:47)
[2021-12-22] MEDS ORDERED: NA CHLORIDE 0.9% 1,000 ML ONE (22:47)
[2021-12-22] MEDS ORDERED: POTASSIUM 25 MEQ EFFERV TAB ONE (23:19)
[2021-12-23] MEDS ORDERED: DOXYCYCLINE 100 MG CAP PO ONE (00:31)
[2021-12-23] MEDS ORDERED: CEPHALEXIN 250 MG CAP ONE (00:35)
[2021-12-23] MEDS ORDERED: DIPHENHYDRAMINE 50 MG/ML VIAL ONE (01:25)
[2021-12-23 03:36] VITALS: TEMP 98; O2SAT 100
[2021-12-23 03:48] VITALS: BP 107/64
--- NOTE | 2021-12-23 13:02 | RAD REPORT ---
EXAM DESCRIPTION: Foot Right 3 View 12/22/2021 11:15 PM CDT CLINICAL HISTORY: 31 years, Female, PAIN COMPARISON: None. FINDINGS: 3 X-ray views of the right foot (Frontal, lateral and oblique views) were performed. No acute bony injuries were demonstrated. No gross soft tissue abnormality is identified. There a re no gross intraosseous lesions. No periosteal reaction were seen. There are very minimal degene rative changes midfoot articulation. IMPRESSION: No acute bony injuries were demonstrated. Minimal degenerative changes midfoot articulation. Electronically signed by: Panda Sky MD 12/22/2021 11:15 PM CDT Due to temporary technical issues with the PACS/Fluency reporting system, reports are being signed by the in house radiologist without review as a courtesy to ensure prompt reporting. The interpreting r adiologist is fully responsible for the content of the report.
--- NOTE | 2021-12-23 13:11 | RAD REPORT ---
EXAM DESCRIPTION: Extrem Venous W Compress Amari CLINICAL HISTORY: 31 years, Female, Pain COMPARISON: None. FINDINGS: Grayscale imaging as well as spectral and color Doppler interrogation of the deep venous s ystem of bilateral lower extremity was performed with visualization from the common femoral veins to the popliteal veins and posterior tibial vein. There is normal compressibility, augmentation and flow with no visualized thrombus. No focal fluid collection is identified. IMPRESSION: No bilateral lower extremity DVT. Electronically signed by: Gabriel Sena DO 12/22/2021 11:01 PM CDT Due to temporary technical issues with the PACS/Fluency reporting system, reports are being signed by the in house radiologist without review as a courtesy to ensure prompt reporting. The interpreting r adiologist is fully responsible for the content of the report.
--- NOTE | 2021-12-24 17:32 | EKG ---
Test Date: 2021-12-22 Test Time: 21:54:01 Physician Pediatrician: DERRICK MEASUREMENT RESULTS: Intervals: Rate: 86 MO: 142 QRSD: 86 QT: 424 QTc: 507 [place]: P: 46 MO: 142 QRS: 19 T: -49 INTERPRETIVE STATEMENTS: Normal sinus rhythm Nonspecific T wave abnormality Prolonged QT Abnormal ECG Compared to ECG 06/18/2020 19:59:08 T-wave abnormality now present Prolonged QT interval now present Electronically Signed On 12-24-21 17:29:10 CDT by Babak Mcintyre
== END 2021-12-23 01:57 | disposition home or self-care (01) ==
LOC: ER 21:07
DX: L03.116 Cellulitis of left lower limb (principal); L03.115 Cellulitis of right lower limb; E87.6 Hypokalemia; F17.210 Nicotine dependence, cigarettes, uncomplicated
CPT/HCPCS: 36415; 71045; 80048; 80076; 81003; 83605; 83735; 83880; 84484; 85025; 85610; 87040; 93005; 93970; 96361; 96365; 96367; 96375; 99284; J1200; J3370; J7030; J7040; J7050; U0003

== ENCOUNTER 2021-12-23 13:24 | Emergency (ER) | payer SELFPAY ==
--- OUTSIDE RECORDS SUMMARY | 2021-12-23 13:26 | XMS REPORT | Continuity of Care Document ---
:1990 Author Organization [facility] t Address [address] [place] [place] [address] Care Team Providers Name Role Phone Amisha Taylor Attending Clinician Payers Payer Name Policy Type Policy Number Effective Date Expiration Date [facility] [id number] 2016 CHOICE MEDICAID 00:00:00 Problems This patient has no known problems. Allergies, Adverse Reactions, Alerts Allergy Allergy Status Severity Reaction(s) Onset Inactive Treating Comm ents Source Name Type Date Date Clinician NO KNOWN Drug Active [facility] Medications This patient has no known medications. Procedures This patient has no known procedures. Encounters Start End Encounter Admission Attending Care Care Encounter Source Date/Time Date/Time Type Type Clinicians Facility Department ID 2021-04-30 Emergency [facility] [id number] [facility] 05:22:20 [facility] 2021-04-30 Emergency [facility] [id number] [facility] 04:21:22 [facility] 2020-05-14 2020-05-14 Emergency [place], [place] [id number] 10:59:00 11:15:00 Viktor B [place] [id number] 2020-05-11 2020-05-11 Emergency [place], [facility] [id number] 09:34:00 11:03:00 Viktor B [place] [id number] [place] [id number] [place] [id number] Results This patient has no known results.
--- NOTE | 2021-12-23 15:01 | ER ---
Nurse's Notes [facility] Name: Flaquita Leon Age: 31 yrs Sex: Female : 1990 Arrival Date: 12/23/2021 Time: 13:29 Bed 26 Private MD: Diagnosis: Cellulitis of left lower limb;Cellulitis of right lower limb Presentation: 12/23 14:34 Note Given Keflex and doxycycline PO last night, informed nurse of reaction, Severiano jl7 given and doctor discharged with same antibiotics. 14:35 Chief complaint: Patient states: Here last night and doctor wanted me to stay but I jl7 couldn't. Discharged with antibiotics but didn't pick them up and LLE still hurts. Coronavirus screen: At this time, the client does not indicate any symptoms associated with coronavirus-19. Ebola Screen: No symptoms or risks identified at this time. Initial Sepsis Screen: Does the patient meet any 2 criteria? No. Patient's initial sepsis screen is negative. Does the patient have a suspected source of infection? No. Patient's initial sepsis screen is negative. Risk Assessment: Do you want to hurt yourself or someone else? Patient reports no desire to harm self or others. Onset of symptoms was December 20, 2021. 14:35 Method Of Arrival: Ambulatory [facility] 14:35 Acuity: VERA 3 jl7 Triage Assessment: 14:41 General: Appears in no apparent distress. uncomfortable, Behavior is calm, cooperative, jl7 appropriate for age. Pain: Complains of pain in left shepard Pain currently is 9 out of 10 on a pain scale. 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 - Social history:: Smoking status: Patient reports the use of cigarette tobacco products, smokes one pack cigarettes per day. Screenin:15 Abuse screen: Denies threats or abuse. Nutritional screening: No deficits noted. jb4 Tuberculosis screening: No symptoms or risk factors identified. Fall Risk None identified. Assessment: 14:45 Reassessment: NIMO Cooper in triage assessing pt. [facility] 14:45 Reassessment: Pt verbalized agreement to discharge with different antibiotics. jl7 15:19 Reassessment: Pt refused discharge at this time, requesting to be re-evaluated for jl7 admission, ERP notified. 16:15 Reassessment: Patient appears in no apparent distress at this time. Patient and/or jb4 family updated on plan of care and expected duration. Pain level reassessed. Patient is alert, oriented x 3, equal unlabored respirations, skin warm/dry/pink. Pt agreed to be discharged after re-evaluation by ED provider. Vital Signs: 14:35 BP 128 / 88; Pulse 97; Resp 17; Temp 99.1; Pulse Ox 97% ; Weight 90.72 kg; Height 5 ft. jl7 4 in. (162.56 cm); Pain 9/10; 14:35 Body Mass Index 34.33 (90.72 kg, 162.56 cm) jl7 ED Course: 13:29 Patient arrived in ED. cl3 13:33 Oliver Ramirez PA is PHCP. cp 13:33 Scooter Fontaine MD is Attending Physician. cp 14:36 Triage completed. jl7 14:41 Arm band placed on right wrist. jl7 16:15 Patient has correct armband on for positive identification. Bed in low position. Call jb4 light in reach. Side rails up X 1. 16:15 No provider procedures requiring assistance completed. Patient did not have IV access jb4 during this emergency room visit. Administered Medications: No medications were administered Medication: 16:15 VIS not applicable for this client. jb4 Outcome: 15:00 Discharge ordered by MD. cp 16:15 Discharged to home ambulatory, with family. jb4 16:15 Condition: stable 16:15 Discharge instructions given to patient, Instructed on discharge instructions, follow up and referral plans. medication usage, Demonstrated understanding of instructions, follow-up care, medications, Prescriptions given X 2. 16:17 Patient left the ED. jb4 Signatures: Oliver Ramirez PA PA cp Bryson, James, RN RN jb4 Leal, Jahala, RN RN [id number] Jennifer Roy cl3 Corrections: (The following items were deleted from the chart) 15:20 14:41 Arm band placed on right wrist. Patient placed in waiting room, Patient notified jl7 of wait time jl7
--- NOTE | 2021-12-23 15:01 | EDPHYS ---
Physician Documentation [facility] Name: Flaquita Leon Age: 31 yrs Sex: Female : 1990 Arrival Date: 12/23/2021 Time: 13:29 Bed 26 Private MD: ED Physician Scooter Fontaine HPI: 12/23 14:55 This 31 yrs old Female presents to ER via Ambulatory with complaints of Leg Pain. cp 14:55 The patient presents with pain, that is acute, swelling, tenderness, erythema. The cp complaints affect the left lower leg and right lower leg. 14:55 Associated signs and symptoms: Pertinent positives: warmth, Pertinent negatives fever. cp 14:55 Patient reports allergic reaction to RXs for antibiotics she was given last night. Has cp not filled RXs for antibiotics. 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 - Social history:: Smoking status: Patient reports the use of cigarette tobacco products, smokes one pack cigarettes per day. ROS: 14:56 Constitutional: Negative for body aches, chills, fever, poor PO intake. cp 14:56 Cardiovascular: Negative for chest pain, palpitations. 14:56 Respiratory: Negative for cough, shortness of breath, wheezing. 14:56 Abdomen/GI: Negative for abdominal pain, nausea, vomiting, and diarrhea. 14:56 MS/extremity: Positive for swelling, tenderness. 14:56 Skin: Positive for erythema, of the left lower leg and right lower leg. 14:56 All other systems are negative. cp Exam: 14:58 Head/Face: Normocephalic, atraumatic. cp 14:58 Constitutional: The patient appears in no acute distress, alert, awake, non-toxic, well developed, well nourished, obese. 14:58 Skin: erythema, mild swelling and tenderness to bilateral lower legs with left worse than right. 14:58 ENT: External ear(s): are unremarkable, Nose: is normal, Mouth: Lips: moist, Oral cp mucosa: moist, Posterior pharynx: Airway: no evidence of obstruction, patent. 14:58 Chest/axilla: Inspection: normal. 14:58 Cardiovascular: Rate: normal, Rhythm: regular. 14:58 Respiratory: the patient does not display signs of respiratory distress, Respirations: normal, no use of accessory muscles, no retractions, labored breathing, is not present, Breath sounds: are clear throughout, no decreased breath sounds, no stridor, no wheezing. 14:58 Abdomen/GI: Inspection: abdomen appears normal. Vital Signs: 14:35 BP 128 / 88; Pulse 97; Resp 17; Temp 99.1; Pulse Ox 97% ; Weight 90.72 kg; Height 5 ft. jl7 4 in. (162.56 cm); Pain 9/10; 14:35 Body Mass Index 34.33 (90.72 kg, 162.56 cm) jl7 MDM: 15:00 Patient medically screened. cp 15:00 Data reviewed: vital signs, nurses notes, old medical records, notes, labs and results cp of radiology studies from yesterday's visit I have discussed the patient's presentation/case with the attending Emergency Department Physician; and as a result, I will discharge patient. 15:00 Counseling: I had a detailed discussion with the patient and/or guardian regarding: the cp historical points, exam findings, and any diagnostic results supporting the discharge/admit diagnosis, to return to the emergency department if symptoms worsen or persist or if there are any questions or concerns that arise at home. ED course: New RXs provided for oral Levaquin and Clindamycin. Will try outpatient treatment and return to ED worsening symptoms after taking antibiotics for next 1-2 days. Administered Medications: No medications were administered Disposition: 15:50 Co-signature as Attending Physician, Scooter Fontaine MD. rn Disposition Summary: 12/23/21 15:00 Discharge Ordered Location: Home cp Problem: new cp Symptoms: are unchanged cp Condition: Stable cp Diagnosis - Cellulitis of left lower limb cp - Cellulitis of right lower limb cp Followup: cp - With: Private Physician - When: 2 - 3 days - Reason: Recheck today's complaints Discharge Instructions: - Discharge Summary Sheet cp - Cellulitis, Adult cp Forms: - Medication Reconciliation Form cp - Thank You Letter cp - Antibiotic Education cp - Prescription Opioid Use cp Prescriptions: - Clindamycin HCl 300 mg Oral Capsule - take 1 capsule by ORAL route every 6 hours for 10 days; 40 capsule; Refills: 0, cp Product Selection Permitted - levofloxacin 500 mg Oral Tablet - take 1 tablet by ORAL route once daily for 8-10 days; 10 tablet; Refills: 0, cp Product Selection Permitted Signatures: Scooter Fontaine MD MD rn Oliver Ramirez PA PA cp Leal, Jahala RN RN jl7
[2021-12-23 16:22] VITALS: BP 128/88; TEMP 99.1; O2SAT 97
== END 2021-12-23 16:17 | disposition home or self-care (01) ==
LOC: ER 13:24
DX: L03.116 Cellulitis of left lower limb (principal); L03.115 Cellulitis of right lower limb; F17.210 Nicotine dependence, cigarettes, uncomplicated; Z88.1 Allergy status to other antibiotic agents
CPT/HCPCS: 99282

== ENCOUNTER 2022-01-05 09:36 | Emergency (ER) | payer SELFPAY ==
--- NOTE | 2022-01-05 11:28 | RAD REPORT ---
EXAM DESCRIPTION: US - Extrem Venous W Compress Amari - 01/05/2022 10:54 am CLINICAL HISTORY: SWELLING COMPARISON: None. TECHNIQUE: Real-time sonographic evaluation of the bilateral lower extremity common femoral, superfi cial femoral, popliteal and posterior tibial veins was performed. FINDINGS: Normal compressibility, flow augmentation, phasic flow and spontaneous flow are identified in the left and right lower extremity common femoral, superficial femoral, popliteal and posterior t ibial veins. No intraluminal filling defects seen. IMPRESSION: No DVT in either lower extremity.
[2022-01-05 12:09] LABS: Absolute Lymphocytes (CBC) 1.8 K/uL (0.7-4.9); Hematocrit 39.2 % (36.0-45.0); Lymphocytes % 29.7 % (15.3-44.8); MCV 91.1 fL (80-100); MPV 7.7 fL (7.6-11.3)
[2022-01-05 12:47] LABS: Troponin High Sensitivity 3.6 pg/mL (<58.9)
[2022-01-05 12:56] LABS: Potassium 3.3 mmol/L (3.5-5.1)
--- NOTE | 2022-01-05 14:44 | RAD REPORT ---
EXAM DESCRIPTION: Hema Single View01/05/2022 2:23 pm CLINICAL HISTORY: sob COMPARISON: 2020 FINDINGS: The lungs appear clear of acute infiltrate. The heart is normal size IMPRESSION: No acute abnormalities displayed
--- NOTE | 2022-01-05 15:10 | EDPHYS ---
Physician Documentation [facility] Name: Flaquita Leon Age: 31 yrs Sex: Female : 1990 Arrival Date: 01/05/2022 Time: 09:37 Bed 17 Private MD: ED Physician Chuy Franks HPI: 01/05 09:54 This 31 yrs old Female presents to ER via Ambulatory with complaints of Hand Swelling, jmm Feet Swelling, Arm Swelling. 09:54 The patient presents with swelling. Onset: The symptoms/episode began/occurred jmm gradually. Modifying factors: The symptoms are alleviated by nothing. the symptoms are aggravated by nothing. This is a 31 year old female with a history of seizure that presents to the ED with complaints of swelling to her arms and legs along with bruising. Denies fever. States having some shortness of breath. Patient advised to of follow up with with pcp and otherwise given strict return precautions Patient understood and agrees with the plan of care. . DIRECTOR CRITICAL CARE: 09:48 LMP 12/19/2021 ss Historical: - Allergies: 09:48 Doxycycline; ss 09:48 Keflex; ss - PMHx: 09:48 Seizures; spinal stenosis; ss - Immunization history:: Client reports receiving the 1st dose of the Covid vaccine. - Social history:: Smoking status: Patient reports the use of cigarette tobacco products, smokes one pack cigarettes per day. ROS: 09:54 Constitutional: Negative for fever, chills, and weight loss, Cardiovascular: Negative jmm for chest pain, palpitations, and edema. 09:54 Abdomen/GI: Negative for abdominal pain, nausea, vomiting, diarrhea, and constipation, Back: Negative for injury and pain. 09:54 Respiratory: Positive for shortness of breath. 09:54 Skin: Positive for ecchymosis. 09:54 All other systems are negative. Exam: 09:54 Constitutional: This is a well developed, well nourished patient who is awake, alert, jmm and in no acute distress. Head/Face: atraumatic. Eyes: EOMI, no conjunctival erythema appreciated ENT: Moist Mucus Membranes Neck: Trachea midline, Supple Chest/axilla: Normal chest wall appearance and motion. Cardiovascular: Regular rate and rhythm. No edema appreciated Respiratory: Normal respirations, no respiratory distress appreciated Abdomen/GI: Non distended Back: Normal ROM 09:54 Skin: ecchymosis noted to the upper and lower extremity bilaterally. 09:54 Neuro: Orientation: is normal, Mentation: is normal, Memory: is normal. 09:54 Psych: Behavior/mood is pleasant, cooperative. Vital Signs: 09:47 BP 118 / 87; Pulse 100; Resp 16; Temp 97.4(TE); Pulse Ox 100% on R/A; Weight 90.72 kg; ss Height 5 ft. 4 in. (162.56 cm); Pain 9/10; 11:02 BP 108 / 69; Pulse 72; Resp 16; Pulse Ox 99% ; vg1 13:19 BP 101 / 68; Pulse 88; Resp 18; Pulse Ox 100% on R/A; bh1 14:45 BP 104 / 76; Pulse 88; Resp 18; Pulse Ox 100% on R/A; bh1 15:19 BP 97 / 77; Pulse 78; Resp 18; Pulse Ox 100% on R/A; bh1 09:47 Body Mass Index 34.33 (90.72 kg, 162.56 cm) ss MDM: 09:54 Patient medically screened. [facility] 15:06 Data reviewed: vital signs, nurses notes. [facility] 15:06 Counseling: I had a detailed discussion with the patient and/or guardian regarding: the [facility] historical points, exam findings, and any diagnostic results supporting the discharge/admit diagnosis, lab results, radiology results, the need for outpatient follow up, to return to the emergency department if symptoms worsen or persist or if there are any questions or concerns that arise at home. ED course: Patient admits to IV drug use. Patient's platelets wnl, no dvt appreciated. Patient advised to follow up with pcp and otherwise given strict return precautions. Patient understood and agrees with the plan of care. . 01/05 09:55 Order name: CBC with Diff; Complete Time: 12:17 [facility] 01/05 09:55 Order name: BMP; Complete Time: 12:56 [facility] 01/05 09:55 Order name: Troponin High Sensitivity; Complete Time: 12:56 [facility] 01/05 09:55 Order name: EKG - Nurse/Tech; Complete Time: 11:01 [facility] 01/05 09:56 Order name: US Extremity Venous W Compression Amari; Complete Time: 11:44 [facility] 01/05 12:59 Order name: Chest Single View XRAY; Complete Time: 14:48 jm Administered Medications: No medications were administered Disposition: 19:59 Co-signature as Attending Physician, Chuy Franks DO I was immediately available on-site ms3 in the Emergency Department for consultation in the care of the patient.. Disposition Summary: 01/05/22 15:09 Discharge Ordered Location: Home jm Condition: Stable jmm Diagnosis - Ecchymosis of the Lower Extremity jmm - Ecchymosis of the Upper Extremity jmm Followup: jmm - With: Private Physician - When: 2 - 3 days - Reason: Recheck today's complaints, Continuance of care, Re-evaluation by your physician Discharge Instructions: - Discharge Summary Sheet jmm - Idiopathic Thrombocytopenic Purpura jm Forms: - Medication Reconciliation Form jm - Thank You Letter jmm - Antibiotic Education jmm - Prescription Opioid Use jm Signatures: Dispatcher [employer] Zay Gilmore PA PA jmm Smirch, Shelby, SLOAN RN Chuy Gutierres DO DO ms3
--- NOTE | 2022-01-05 15:10 | ER ---
Nurse's Notes [facility] Name: Flaquita Leon Age: 31 yrs Sex: Female : 1990 Arrival Date: 01/05/2022 Time: 09:37 Bed 17 Private MD: Diagnosis: Ecchymosis of the Lower Extremity;Ecchymosis of the Upper Extremity Presentation: 01/05 09:47 Chief complaint: Patient states: "My feet and my arms and my legs are swollen." Pt ss reports this began yesterday. Coronavirus screen: Client denies travel out of the [place] in the last 14 days. Ebola Screen: Patient denies exposure to infectious person. Patient denies travel to an Ebola-affected area in the 21 days before illness onset. Initial Sepsis Screen: Does the patient meet any 2 criteria? No. Patient's initial sepsis screen is negative. Does the patient have a suspected source of infection? No. Patient's initial sepsis screen is negative. Risk Assessment: Do you want to hurt yourself or someone else? Patient reports no desire to harm self or others. Onset of symptoms was January 04, 2022. 09:47 Method Of Arrival: Ambulatory ss 09:47 Acuity: VERA 3 ss SOLE INKER: 09:48 LMP 12/19/2021 ss Historical: - Allergies: 09:48 Doxycycline; ss 09:48 Keflex; ss - PMHx: 09:48 Seizures; spinal stenosis; ss - Immunization history:: Client reports receiving the 1st dose of the Covid vaccine. - Social history:: Smoking status: Patient reports the use of cigarette tobacco products, smokes one pack cigarettes per day. Screenin:27 Abuse screen: Denies threats or abuse. Nutritional screening: No deficits noted. vg1 Tuberculosis screening: No symptoms or risk factors identified. Fall Risk No fall in past 12 months (0 pts). No secondary diagnosis (0 pts). IV access (20 points). Ambulatory Aid- None/Bed Rest/Nurse Assist (0 pts). Gait- Normal/Bed Rest/Wheelchair (0 pts) Mental Status- Oriented to own ability (0 pts). Total Caballero Fall Scale indicates No Risk (0-24 pts). Assessment: 10:00 Reassessment: pt admitted to using methamphetamine via IV use; stated "im scared that's vg1 the reason why my arms hurt and my feet" Provider notified. General: Appears uncomfortable, Behavior is cooperative, crying. Pain: Complains of pain in right arm, left arm, right leg and left leg Pain currently is 9 out of 10 on a pain scale. Pain began 1 day ago. Neuro: Level of Consciousness is awake, alert, obeys commands, Oriented to person, place, time, situation. Cardiovascular: Patient's skin is warm and dry. Respiratory: Reports shortness of breath at rest on exertion Airway is patent Respiratory effort is even, unlabored, Breath sounds are clear bilaterally. GI: Abdomen is round non-distended. : No signs and/or symptoms were reported regarding the genitourinary system. EENT: No signs and/or symptoms were reported regarding the EENT system. Derm: Bruising that is dark purple, on right arm and left arm. Musculoskeletal: Circulation, motion, and sensation intact. 10:53 Reassessment: spoke with inside lab for assistance in getting lab work for pt. vg1 11:01 Reassessment: Patient appears in no apparent distress at this time. No changes from vg1 previously documented assessment. Patient and/or family updated on plan of care and expected duration. Pain level reassessed. Patient is alert, oriented x 3, equal unlabored respirations, skin warm/dry/pink. Derm: Bruising that is on chest, right leg and left leg. 11:44 Reassessment: inside lab at bedside. vg1 Vital Signs: 09:47 BP 118 / 87; Pulse 100; Resp 16; Temp 97.4(TE); Pulse Ox 100% on R/A; Weight 90.72 kg; Height 5 ft. 4 in. (162.56 cm); Pain 9/10; 11:02 BP 108 / 69; Pulse 72; Resp 16; Pulse Ox 99% ; vg1 13:19 BP 101 / 68; Pulse 88; Resp 18; Pulse Ox 100% on R/A; bh1 14:45 BP 104 / 76; Pulse 88; Resp 18; Pulse Ox 100% on R/A; bh1 15:19 BP 97 / 77; Pulse 78; Resp 18; Pulse Ox 100% on R/A; bh1 09:47 Body Mass Index 34.33 (90.72 kg, 162.56 cm) ED Course: 09:37 Patient arrived in ED. rg4 09:44 Zay Castle PA is PHCP. [facility] 09:44 Chuy Franks DO is Attending Physician. [facility] 09:48 Triage completed. 09:48 Arm band placed on right wrist. 10:00 Marie Hester, RN is Primary Nurse. 1 10:00 Patient has correct armband on for positive identification. Bed in low position. Call 1 light in reach. Side rails up X 1. 10:00 Missed attempt(s): 20 gauge in right forearm. vg1 10:56 US Extremity Venous W Compression Amari In Process Unspecified. EDMS 12:08 Report given to Iva LISA. 1 13:20 No apparent distress. Resting quietly. Awaiting lab results, Awaiting radiology results.1 14:25 Chest Single View XRAY In Process Unspecified. EDMS 14:45 No apparent distress. Resting quietly. Awaiting lab results, Awaiting radiology results.[facility] 15:20 No provider procedures requiring assistance completed. Patient did not have IV access [facility] during this emergency room visit. Administered Medications: No medications were administered Medication: 15:20 VIS not applicable for this client. [facility] Outcome: 15:09 Discharge ordered by MD. [facility] 15:19 Discharged to home ambulatory. [facility] 15:19 Condition: good 15:19 Discharge instructions given to patient, Instructed on discharge instructions, follow up and referral plans. Demonstrated understanding of instructions, follow-up care. 15:20 Patient left the ED. [facility] Signatures: Dispatcher [employer] EDRI Zay Castle PA PA jmm Smirch, Shelby, RN RN Candis Hester rg4 Marie Hester, RN RN 1 Iva Nuñez RN RN [facility] Corrections: (The following items were deleted from the chart) 10:54 10:53 Reassessment: spoke with lab for assistance in getting lab work for pt 1 1
[2022-01-05 15:32] VITALS: TEMP 97.4
[2022-01-05 15:50] VITALS: O2SAT 100
[2022-01-05 15:52] VITALS: BP 97/77
--- NOTE | 2022-01-09 14:02 | EKG ---
Test Date: 2022-01-05 Test Time: 10:55:50 [employer] Worker: BARBARA MEASUREMENT RESULTS: Intervals: Rate: 79 AR: 146 QRSD: 92 QT: 410 QTc: 470 [place]: P: 39 AR: 146 QRS: 31 T: 15 INTERPRETIVE STATEMENTS: Normal sinus rhythm Normal ECG Compared to ECG 12/22/2021 21:54:01 T-wave abnormality no longer present Prolonged QT interval no longer present Electronically Signed On 01-09-22 13:53:24 CDT by Babak Mcintyre
== END 2022-01-05 15:20 | disposition home or self-care (01) ==
LOC: ER 09:36
DX: R58 Hemorrhage, not elsewhere classified (principal); F17.210 Nicotine dependence, cigarettes, uncomplicated; Z88.1 Allergy status to other antibiotic agents
CPT/HCPCS: 36415; 71045; 80048; 84484; 85025; 93005; 93970

== ENCOUNTER 2023-02-01 22:47 | Emergency (ER) | payer SELFPAY ==
--- OUTSIDE RECORDS SUMMARY | 2023-02-01 23:02 | XMS REPORT | Continuity of Care Document ---
:1990 Author Organization Formerly [facility] t Address [address] [place] [address] Care Team Providers Name Role Phone PCP, PATIENT DOES NOT HAVE A Primary Care Physician Unavaila ADDIE Monique Attending Clinician Unavailable Addie Mata MD Attending Clinician Swapna ARIZMENDI Attending Clinician Unavailable Swapna Wong Attending Clinician Doctor Unassigned, [place] Attending Clinician Unavailable Viktor Taylor B Attending Clinician ADDIE MATA Admitting Clinician Unavailable Payers Payer Name Policy Type Policy Number Effective Date Expiration Date [facility] [id number] 2016 [facility] MEDICAID 00:00:00 Problems Condition Condition Condition Status Onset Resolution Last Treating Co mments Source Name Details Category Date Date Treatment Clinician Date Left wrist Left wrist Disease Active U nivers pain pain - ity of 00:00: Medical Branch Allergies, Adverse Reactions, Alerts Allergy Allergy Status Severity Reaction(s) Onset Inactive Treating Comm ents Source Name Type Date Date Clinician DOXYCYCL DRUG Active Rash Univers INE INGREDI 6-25 ity of 00:00: 00 Medical Branch CEPHALEX DRUG Active Rash Univers IN INGREDI 6-25 ity of 00:00: 00 Medical Branch Doxycycl Propensi Active Rash Univer s ine ty to 6-25 ity of adverse 00:00: [place] reaction 00 Medical s Branch Cephalex Propensi Active Rash Univer s in ty to 6-25 ity of adverse 00:00: [place] reaction 00 Medical s Branch NO KNOWN Drug Active Univers ALLERGIE Class ity of [place] [facility] [place] Social History Social Habit Start Date Stop Date Quantity Comments Source Exposure to 2021-12-27 2022-01-06 Not sure [facility] SARS-CoV-2 (event) 00:00:00 20:35:00 Medica l Branch Alcohol intake 2020-05-11 2020-05-11 0 /d [facility] 00:00:00 00:00:00 Medical Branch [facility]igned At [birth year] [facility] 00:00:00 00:00:00 Medical Branch Smoking Status Start Date Stop Date Source Current every day smoker [facility] Medications Ordered Filled Start Stop Current Ordering Indication Dosage Frequency Signature Comments Components Source Medication Medication Date Date Medication? Clinician (SIG) Name Name hydroCHLORO Yes [id number] 25mg Take 1 Univers thiazide 25 7-08 tablet by ity of mg tablet 00:00: mouth [place] 00 every Medical morning. Branch ondansetron Yes [id number] 4mg Take 1 Univers 4 mg 7-08 tablet by ity of disintegrat 00:00: mouth [place] ing tablet 00 every 4 Medica l (four) Branch hours as needed for Nausea and Vomiting (N/V). loratadine Yes [id number] 10mg Take 1 Univers 10 mg 7-08 tablet by ity of tablet 00:00: mouth [place] 00 daily. Medical Branch levoFLOXaci 2021- No 750mg 750 mg, IV Univers n in D5W 12-24 Piggyback, ity of (LEVAQUIN) 18:30: 18:50 ONCE, 1 Karan as 750 mg/150 00 :00 dose, On Medic al mL Sat Branch Piggyback 12/24/21 at 750 mg 1330, Administer over 90 Minutes, 150 mL
R an for Anti-Infec tive: Documented Infection< br>Documen sha Infection Site: Skin / Soft Tissue
Duration of Therapy: 7 days clindamycin 2021- No [id number] 300mg Take 1 Univers 300 mg 12-24 capsule by ity of capsule 00:00: 04:59 mouth 4 [place] 00 :00 (four) Medical times Branch daily for 10 days. levoFLOXaci 2021- No [id number] 750mg Take 1 Univers n 6-25 07-03 tablet by ity of (LEVAQUIN) 00:00: 04:59 mouth [place] 750 mg 00 :00 every 24 Medical tablet (twenty-fo Branch ur) hours for 7 days. HYDROcodone 2015-07 Yes TAKE 1 Univ ers -acetaminop 2-28 TABLET BY ity of hen 5-325 00:00: MOUTH [place] mg tablet 00 EVERY 4 Medical HOURS Branch NEEDED FOR PAIN HYDROcodone 2015-07 Yes TAKE 1 Univ ers -acetaminop 2-28 TABLET BY ity of hen 5-325 00:00: MOUTH [place] mg tablet 00 EVERY 4 Medical HOURS Branch NEEDED FOR PAIN HYDROcodone 2015-07 Yes TAKE 1 Univ ers -acetaminop 2-28 TABLET BY ity of hen 5-325 00:00: MOUTH [place] mg tablet 00 EVERY 4 Medical HOURS Branch NEEDED FOR PAIN CITRANATAL 2015-07 Yes TAKE ONE Uni vers HARMONY, 2-06 CAPSULE BY ity o f IRON FUM, 00:00: MOUTH [place] 27 mg 00 EVERY DAY Medical iron-1 mg Branch -50 mg-260 mg Cap CITRANATAL 2015-07 Yes TAKE ONE Uni vers HARMONY, 2-06 CAPSULE BY ity o f IRON FUM, 00:00: MOUTH [place] 27 mg 00 EVERY DAY Medical iron-1 mg Branch -50 mg-260 mg Cap CITRANATAL 2015-07 Yes TAKE ONE Uni vers HARMONY, 2-06 CAPSULE BY ity o f IRON FUM, 00:00: MOUTH [place] 27 mg 00 EVERY DAY Medical iron-1 mg Branch -50 mg-260 mg Cap Vital Signs Vital Name Observation Time Observation Value Comments Source Systolic blood 2022-01-07 04:00:00 122 [facility]Hg[facility] pressure [facility] Diastolic blood 2022-01-07 04:00:00 71 mm[Hg] [facility] [place] Heart rate 2022-01-07 04:00:00 75 /min [facility] Oxygen saturation in 2022-01-07 04:00:00 99 /min [facility] Arterial blood by [facility] Pulse oximetry Branch Respiratory rate 2022-01-07 03:05:00 17 /min [facility] BMI 2022-01-07 01:39:00 34.33 kg/m2 Universi ty of [facility] Body temperature 2022-01-07 01:39:00 36.22 Emma [facility] Body height 2022-01-07 01:39:00 162.6 cm Universi ty of [facility] Body weight 2022-01-07 01:39:00 90.719 kg Universi ty [facility] Heart rate 2021-12-24 18:50:00 76 /min Universi ty of [facility] Respiratory rate 2021-12-24 18:50:00 23 /min [facility] Oxygen saturation in 2021-12-24 18:50:00 98 /min [facility] Arterial blood by [facility] Pulse oximetry Branch Systolic blood 2021-12-24 18:00:00 114 mm[Hg] [facility] Diastolic blood 2021-12-24 18:00:00 63 mm[Hg] [facility] Body temperature 2021-12-24 14:32:[address] [facility] Body height 2021-12-24 14:32:00 162.6 cm Universi ty of [facility] Body weight 2021-12-24 14:32:00 90.719 kg [facility] BMI 2021-12-24 14:32:00 34.33 kg/m2 [facility] Procedures Procedure Date / Time Performing Clinician Source Performed COMP. METABOLIC PANEL 2022-01-07 02:51:[address] [facility] ([id number]) [facility] CBC WITH DIFF 2022-01-07 02:51:00 Addie Mata [facility] URINALYSIS 2022-01-07 02:51:00 Addie Mata [place] [facility] [place] [facility] POCT TEST 2022-01-07 02:51:00 Addie Mata [facility] N-TERMINAL PRO-BNP 2022-01-07 02:51:00 Addie Mata [facility] y [facility] COVID-19 (ID NOW RAPID 2022-01-07 02:51:[address] [facility]IMMUNOASSAY[facility] 2022-01-07 02:51:00 Addie Mata [facility] - COMPREHENSIVE DRUG Medical [facility] SCREEN W/O REFLEX XR CHEST 1 VW 2022-01-07 02:21:57 Addie Mata o f [facility] NOTICE OF PRIVACY 2022-01-07 01:38:44 Doctor Unassigned, No Univ [facility] PRACTICES Name [facility] CONSENT/REFUSAL FOR 2022-01-07 01:33:46 Doctor Unassigned, No [facility] [place] [facility] Name [facility] BLOOD CULTURE SCREEN 2021-12-24 15:35:[address] [facility] COMP. METABOLIC PANEL 2021-12-24 15:33:[address] [facility] ([id number]) [facility] CBC WITH DIFF 2021-12-24 15:33:00 Swapna Arizmendi [place] [facility] [place] [facility] BLOOD CULTURE SCREEN 2021-12-24 15:23:[address] [facility] CONSENT/REFUSAL FOR 2021-12-24 14:29:04 Doctor Unassigned, No [facility] [place] DIAGNOSIS AND TREATMENT Name [facility] Encounters Start End Encounter Admission Attending Care Care Encounter Source Date/Time Date/Time Type Type Clinicians Facility Department ID 2021-04-30 Emergency [facility] [id number] [facility] 2021-04-30 Emergency [facility] [id number] Univers 04:21:22 ity [facility] 2022-01-06 2022-01-06 Emergency [facility] [id number] Univers 20:47:00 23:24:00 ADDIE [facility] 2022-01-06 2022-01-06 [facility] [id number] Univers 20:47:00 23:24:00 Addie FERNANDES [id number] i ty milly FOSTER 4.2.7.2.686 [facility] [id number] [place] [address] Branch 2021-12-24 2021-12-24 Emergency X Swapna ARIZMENDI [facility] ERT [id number] Univers 09:34:00 13:55:00 ity of [facility] 2021-12-24 2021-12-24 Emergency Bhavana, K [facility] [id number] Univers 09:34:00 13:55:00 Chio FERNANDES [id number] i ty of [place] [id number] [facility] 084 Branch 2021-12-24 2021-12-24 Orders Doctor PANDA [id number] Univers 00:00:00 00:00:00 Only Unassigned, STACY 350.1.13.10 ity of [place] [facility] 4.2.7.2.686 [facility] [id number] [facility] 009 Branch 2020-05-14 2020-05-14 Emergency Allan, TRAUMA [id number] 10:59:00 11:15:00 Viktor B [place] [id number] 4.2.7.2.686 [id number] 2020-05-11 2020-05-11 Emergency Allan, [facility] [id number] 09:34:00 11:03:00 Viktor Fernandes 350.1.13.10 [place] 4.2.7.2.686 [place] [id number] Results Test Description Test Time Test Comments Results Result Comments Source CBC WITH DIFF 2022-01-07 03:55:23 Test Item Value Reference Range Interpretation Comme nts WBC (test code = 6690-2) See_Comment [A utomated message] The system which ge nerated this result transmit sha reference range: 4.30 - 1 1.10 10*3/?L. The reference r eric was not used to interpr et this result as normal/abnor mal. RBC (test code = 789-8) See_Comment [Au tomated message] The system which ge nerated this result transmit sha reference range: 3.93 - 5 .25 10*6/?L. The reference r eric was not used to interpr et this result as normal/abnor mal. HGB (test code = 718-7) 13.6 g/dL 11.6-15.0 HCT (test code = 4544-3) 38.2 % 35.7-45.2 MCV (test code = 787-2) 89.0 fL 80.6-95.5 MCH (test code = 785-6) 31.7 pg 25.9-32.8 MCHC (test code = 786-4) 35.6 g/dL 31.6-35.1 H RDW-SD (test code = 14279-0) 40.1 fL 39.0-49.9 RDW-CV (test code = 788-0) 12.3 % 12.0-15.5 PLT (test code = 777-3) See_Comment [Au tomated message] The system which ge nerated this result transmit sha reference range: 166 - 35 8 10*3/?L. The reference range was not used to interpret th is result as normal/abnormal . MPV (test code = 40326-1) 9.3 fL 9.5-12.9 L NRBC/100 WBC (test code = See_Comment [ Automated message] The 1048751246) system which InhibOx nerated this result transmit sha reference range: 0.0 - 10 .0 /100 WBCs. The reference r eric was not used to interpr et this result as normal/abnor mal. NRBC x10^3 (test code = <0.01 See_Comment [Au tomated message] The 6623630686) system which InhibOx nerated this result transmit sha reference range: 10*3/?L. The reference range was not u sed to interpret this result as normal/abnormal . GRAN MAT (NEUT) % (test code 50.6 % = 770-8) IMM GRAN % (test code = 0.40 % 5374686071) LYMPH % (test code = 736-9) 38.4 % MONO % (test code = 5905-5) 9.7 % EOS % (test code = 713-8) 0.5 % BASO % (test code = 706-2) 0.4 % GRAN MAT x10^3(ANC) (test 2.82 10*3/uL 1.88-7.09 code = 1016057031) IMM GRAN x10^3 (test code = <0.03 0.00-0.06 5835053912) LYMPH x10^3 (test code = 2.14 10*3/uL 1.32-3.29 731-0) MONO x10^3 (test code = 0.54 10*3/uL 0.33-0.92 742-7) EOS x10^3 (test code = 0.03 10*3/uL 0.03-0.39 711-2) BASO x10^3 (test code = <0.03 0.01-0.07 704-7) Lab Interpretation (test Abnormal code = 90511-2) [id number] 03:28:15 Test Item Value Reference Range Interpretation Comments NT-proBNP (test code 57 pg/mL See_Comment [Autom ated = 4308739197) message] The system which generated this result transmitted reference range : <=125. The reference range was not used to interpret this result as normal/abnormal . LIZZ (test code = LIZZ) Biotin has been reported to cause a negative bias, interpret results relative to patient's use of biotin. Lab Interpretation Normal (test code = 37565-6) [facility] ([id number])2022-01-07 03:19:14 Test Item Value Reference Range Interpretation Comments NA (test code = 138 mmol/L 135-145 6296286586) K (test code = 4.1 mmol/L 3.5-5.0 3104414732) CL (test code = 104 mmol/L 98-108 8890175959) CO2 TOTAL (test code = 26 mmol/L 23-31 0904644760) AGAP (test code = 2-16 8068880592) BUN (test code = 9 mg/dL 7-23 6650000383) GLUCOSE (test code = 102 mg/dL 70-110 7024040396) CREATININE (test code = 0.60 mg/dL 0.50-1.04 8388196455) TOTAL BILI (test code = 1.0 mg/dL 0.1-1.9 4757579359) CALCIUM (test code = 8.8 mg/dL 8.6-10.6 1388160121) T PROTEIN (test code = 7.0 g/dL 6.3-8.2 1016914077) ALBUMIN (test code = 4.1 g/dL 3.5-5.0 7218751431) ALK PHOS (test code = 54 U/L 34-122 5682502360) ALTv (test code = 31 U/L 5-35 2-6) AST(SGOT) (test code = 52 U/L 13-40 H 4678108447) eGFR (test code = mL/min/1.73m2 6896192156) LIZZ (test code = LIZZ) Association of Glomerular Filtration Rate (GFR) and Staging of Kidney Disease* + --+ --+ ------+| GFR (mL/min/1.73 m2) ?| With Kidney Damage ?| ?Without Kidney Damage+ --------+ --------+ +| ?>90 ?| ?Stage one ?| ? Normal ?+ ---+ ---+ -------+| ?60-89 ?| ?Stage two ?| ? Decreased GFR ? + --+ --+ ------+| ?30-59 ?| ?Stage three ?| ? Stage three ? + --+ --+ ------+| ?15-29 ?| ?Stage four ? | ? Stage four ?+ ---+ ---+ -------+| ?<15 (or dialysis) ? ?| ?Stage five ? | ? Stage five ?+ ---+ ---+ -------+ *Each stage assumes the associated GFR level has been in effect for at least three months. ?Stages 1 to 5, with or without kidney disease, indicate chronic kidney disease. Notes: Determination of stages one and two (with eGFR >59mL/min/1.73 m2) requires estimation of kidney damage for at least three months as defined by structural or functional abnormalities of the kidney, manifested by either:Pathological abnormalities or Markers of kidney damage (including abnormalities in the composition of the blood or urine or abnormalities in imaging tests). Lab Interpretation Abnormal (test code = 62927-4) [facility] [id number] 02:51:00 Test Item Value Reference Range Interpretation Comments POCT PREG (test code = 1605) Negative On board controls acceptable with Present C Line (test code = 3574) POCT PREG LOT # (test code = 3575) [id number] POCT PREG TEST DATE (test 05-01-2023 code = 3576) Lab Interpretation (test code = Normal 97071-3) [facility]. METABOLIC PANEL ([id number])2021-12-24 15:55:54 Test Item Value Reference Range Interpretation Comments NA (test code = 140 mmol/L 135-145 0787591782) K (test code = 4.1 mmol/L 3.5-5.0 6567301325) CL (test code = 103 mmol/L 98-108 8402484163) CO2 TOTAL (test code = 25 mmol/L 23-31 0454409783) AGAP (test code = 2-16 6863854228) BUN (test code = 10 mg/dL 7-23 0242047971) GLUCOSE (test code = 91 mg/dL 70-110 7151223375) CREATININE (test code = 0.59 mg/dL 0.50-1.04 1906718984) TOTAL BILI (test code = 1.3 mg/dL 0.1-1.1 H 8409187387) CALCIUM (test code = 9.4 mg/dL 8.6-10.6 1933052084) T PROTEIN (test code = 7.7 g/dL 6.3-8.2 7475777376) ALBUMIN (test code = 4.6 g/dL 3.5-5.0 1113087733) ALK PHOS (test code = 69 U/L 34-122 4748139833) ALTv (test code = 13 U/L 5-35 1742-6) AST(SGOT) (test code = 24 U/L 13-40 3817430242) eGFR (test code = mL/min/1.73m2 8136646157) LIZZ (test code = LIZZ) Association of Glomerular Filtration Rate (GFR) and Staging of Kidney Disease* + --+ --+ ------+| GFR (mL/min/1.73 m2) ?| With Kidney Damage ?| ?Without Kidney Damage+ --------+ --------+ +| ?>90 ?| ?Stage one ?| ? Normal ?+ ---+ ---+ -------+| ?60-89 ?| ?Stage two ?| ? Decreased GFR ? + --+ --+ ------+| ?30-59 ?| ?Stage three ?| ? Stage three ? + --+ --+ ------+| ?15-29 ?| ?Stage four ? | ? Stage four ?+ ---+ ---+ -------+| ?<15 (or dialysis) ? ?| ?Stage five ? | ? Stage five ?+ ---+ ---+ -------+ *Each stage assumes the associated GFR level has been in effect for at least three months. ?Stages 1 to 5, with or without kidney disease, indicate chronic kidney disease. Notes: Determination of stages one and two (with eGFR >59mL/min/1.73 m2) requires estimation of kidney damage for at least three months as defined by structural or functional abnormalities of the kidney, manifested by either:Pathological abnormalities or Markers of kidney damage (including abnormalities in the composition of the blood or urine or abnormalities in imaging tests). Lab Interpretation Abnormal (test code = 45867-8) [facility] WITH [id number] 15:42:33 Test Item Value Reference Range Interpretation Comments WBC (test code = See_Comment [Automated 6990-2) message] The sy stem which generated this result transmitted reference range : 4.30 - 11.10 10*3/?L. The reference range was not used to interpret this result as normal/abnormal . RBC (test code = See_Comment [Automated 159-8) message] The sy stem which generated this result transmitted reference range : 3.93 - 5.25 10*6/?L. The reference range was not used to interpret this result as normal/abnormal . HGB (test code = 12.5 g/dL 11.6-15.0 718-7) HCT (test code = 36.4 % 35.7-45.2 4544-3) MCV (test code = 92.4 fL 80.6-95.5 787-2) MCH (test code = 31.7 pg 25.9-32.8 785-6) MCHC (test code = 34.3 g/dL 31.6-35.1 786-4) RDW-SD (test code = 41.0 fL 39.0-49.9 66255-6) RDW-CV (test code = 12.1 % 12.0-15.5 788-0) PLT (test code = See_Comment [Automated 777-3) message] The sy stem which generated this result transmitted reference range : 166 - 358 10*3/ ?L. The reference r eric was not used to interpret this result as normal/abnormal . MPV (test code = 9.1 fL 9.5-12.9 L 22432-8) NRBC/100 WBC (test See_Comment [Automat ed code = 7638286417) message] The system which generated this result transmitted reference range : 0.0 - 10.0 /100 WBCs. The refer ence range was not u sed to interpret th is result as normal/abnormal . NRBC x10^3 (test code <0.01 See_Comment [Auto mated = 2226173701) message] The s ystem which generated this result transmitted reference range : 10*3/?L. The reference range was not used to interpret this result as normal/abnormal . GRAN MAT (NEUT) % 69.2 % (test code = 770-8) IMM GRAN % (test code 0.20 % = 5941431534) LYMPH % (test code = 22.9 % 736-9) MONO % (test code = 7.0 % 5905-5) EOS % (test code = 0.5 % 713-8) BASO % (test code = 0.2 % 706-2) GRAN MAT x10^3(ANC) 4.04 10*3/uL 1.88-7.09 (test code = 9818968620) IMM GRAN x10^3 (test <0.03 0.00-0.06 code = 3756889207) LYMPH x10^3 (test code 1.34 10*3/uL 1.32-3.29 = 731-0) MONO x10^3 (test code 0.41 10*3/uL 0.33-0.92 = 742-7) EOS x10^3 (test code = 0.03 10*3/uL 0.03-0.39 711-2) BASO x10^3 (test code <0.03 0.01-0.07 = 704-7) Lab Interpretation Abnormal (test code = 64167-2) [facility]"
[2023-02-01] MEDS ORDERED: PROMETHAZINE 25 MG TABLET ONE (23:28)
[2023-02-01 23:38] LABS: Specific Gravity 1.032 (1.005-1.030)
[2023-02-01 23:46] LABS: Specific Gravity > 1.030 (1.005-1.030); Urine Bacteria <20 /HPF (<20); Urine Bilirubin NEGATIVE (Negative); Urine Blood 3+ (OVER) (Negative); Urine Clarity Extremely Turbid (Clear); Urine Color Yellow (Yellow); Urine Glucose NEGATIVE (Negative); Urine Mucus Slight /HPF (None Seen); Urine Protein 1+ (Negative); Urine Urobilinogen Normal (Normal); Urine WBC Clump Rare /HPF (None Seen)
--- NOTE | 2023-02-02 00:16 | EDPHYS ---
Physician Documentation [facility] Name: Flaquita Leon Age: 32 yrs Sex: Female : 1990 Arrival Date: 02/01/2023 Time: 22:47 Bed 5 Private MD: ED Physician Oliver Roland HPI: 02/01 23:05 This 32 yrs old Female presents to ER via Unassigned with complaints of Abdominal Pain, snw Nausea/Vomiting, Fever, Breathing Difficulty. 23:05 The patient or guardian reports cough, flu symptoms. Onset: The symptoms/episode snw began/occurred acutely, 4 day(s) ago, and became persistent. Associated signs and symptoms: Pertinent positives: diarrhea, fever, nausea, sore throat, vomiting. Severity of symptoms: At their worst the symptoms were moderate. It is unknown whether or not the patient has had similar symptoms in the past. The patient has not recently seen a physician. 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 Flu vaccine is not up to date. - Social history:: Smoking status: Patient reports the use of cigarette tobacco products, denies chronic smoking, but will smoke occasionally, Reported history of juuling and/or vaping. ROS: 23:03 Constitutional: positive for fever, negative for chills and weight loss, Eyes: Negative snw for injury, pain, redness, and discharge, ENT: Negative for injury, pain, and discharge, Neck: Negative for injury, pain, and swelling, Cardiovascular: Negative for chest pain, palpitations, and edema. 23:03 ENT: Negative for injury and discharge, positive for sore throat Back: Negative for injury and pain, : Negative for injury, bleeding, discharge, and swelling, MS/Extremity: Negative for injury and deformity, Skin: Negative for injury, rash, and discoloration, Neuro: Negative for headache, weakness, numbness, tingling, and seizure, Psych: Negative for depression, anxiety, suicide ideation, homicidal ideation, and hallucinations. 23:03 Respiratory: Positive for cough, shortness of breath. 23:03 Abdomen/GI: Positive for abdominal pain, nausea, vomiting, diarrhea. Exam: 23:03 Constitutional: This is a well developed, well nourished patient who is awake, alert, snw and in no acute distress. Head/Face: Normocephalic, atraumatic. Eyes: Pupils equal round and reactive to light, extra-ocular motions intact. Lids and lashes normal. Conjunctiva and sclera are non-icteric and not injected. Cornea within normal limits. Periorbital areas with no swelling, redness, or edema. ENT: Nares patent. No nasal discharge, no septal abnormalities noted. Tympanic membranes are normal and external auditory canals are clear. Oropharynx with no redness, swelling, or masses, exudates, or evidence of obstruction, uvula midline. Mucous membranes moist. Neck: Trachea midline, no thyromegaly or masses palpated, and no cervical lymphadenopathy. Supple, full range of motion without nuchal rigidity, or vertebral point tenderness. No Meningismus. Chest/axilla: Normal chest wall appearance and motion. Nontender with no deformity. No lesions are appreciated. Cardiovascular: Regular rate and rhythm with a normal S1 and S2. No gallops, murmurs, or rubs. Normal PMI, no JVD. No pulse deficits. 23:03 Respiratory: the patient does not display signs of respiratory distress, Respirations: normal, Breath sounds: are clear throughout, bronchial sounds. 23:03 Abdomen/GI: Soft, non-tender, with normal bowel sounds. No distension or tympany. No snw guarding or rebound. No evidence of tenderness throughout. Back: No spinal tenderness. No costovertebral tenderness. Full range of motion. Skin: Warm, dry with normal turgor. Normal color with no rashes, no lesions, and no evidence of cellulitis. MS/ Extremity: Pulses equal, no cyanosis. Neurovascular intact. Full, normal range of motion. Neuro: Awake and alert, GCS 15, oriented to person, place, time, and situation. Cranial nerves II-XII grossly intact. Motor strength 5/5 in all extremities. Sensory grossly intact. Cerebellar exam normal. Normal gait. Psych: Awake, alert, with orientation to person, place and time. Behavior, mood, and affect are within normal limits. Vital Signs: 23:08 BP 114 / 82; Pulse 87; Resp 18; Temp 98.3; Pulse Ox 100% ; Weight 120.2 kg; Height 5 vc1 ft. 4 in. ; Pain 02/08; 02/02 00:25 BP 109 / 73; Pulse 77; Resp 18; Pulse Ox 96% ; vc1 02/01 23:08 Body Mass Index 45.49 (120.20 kg, 162.56 cm) vc1 02/01 23:08 Pain Scale: Adult vc1 MDM: 02/01 22:55 Patient medically screened. dameon 02/02 00:17 Differential diagnosis: bronchitis, flu, URI. Data reviewed: vital signs, nurses notes. snw I considered the following discharge prescriptions or medication management in the emergency department Medications were administered in the Emergency Department. See MAR. Counseling: I had a detailed discussion with the patient and/or guardian regarding: the historical points, exam findings, and any diagnostic results supporting the discharge/admit diagnosis, lab results, radiology results, the need for outpatient follow up, for definitive care, to return to the emergency department if symptoms worsen or persist or if there are any questions or concerns that arise at home. Response to treatment: the patient's symptoms have mildly improved after treatment. Special discussion: Based on the history and exam findings, there is no indication for further emergent testing or inpatient evaluation. I discussed with the patient/guardian the need to see the primary care provider for further evaluation of the symptoms. 02/01 23:02 Order name: Test, Urine; Complete Time: 23:39 snw 02/01 23:02 Order name: Urinalysis w/ reflexes; Complete Time: 23:52 snw 02/01 23:02 Order name: COVID-19 SARS RT PCR; Complete Time: 00:03 snw 02/01 23:02 Order name: Flu; Complete Time: 23:52 snw 02/01 23:02 Order name: Strep; Complete Time: 23:52 snw 02/01 23:45 Order name: Throat Culture EDMS 02/01 23:02 Order name: Chest Pa And Lat (2 Views) XRAY snw Administered Medications: 02/01 23:28 Drug: Promethazine PO 25 mg Route: PO; vc1 Disposition Summary: 02/02/23 00:15 Discharge Ordered Location: Home snw Condition: Stable snw Diagnosis - Viral infection, unspecified snw Followup: snw - With: Emergency Department - When: As needed - Reason: Worsening of condition Followup: snw - With: Private Physician - When: 2 - 3 days - Reason: Recheck today's complaints, Continuance of care, Re-evaluation by your physician Discharge Instructions: - Discharge Summary Sheet snw - Viral Respiratory Infection snw - Rehydration, Adult snw Forms: - Work release form snw - Medication Reconciliation Form snw - Thank You Letter snw - Antibiotic Education snw - Prescription Opioid Use snw - Patient Portal Instructions snw Prescriptions: - albuterol sulfate 90 mcg/actuation Inhalation HFA Aerosol Inhaler - inhale 2 inhalation by INHALATION route 4 times per day; 1 Unspecified; snw Refills: 0, Product Selection Permitted - Mobic 7.5 mg Oral Tablet - take 1 tablet by ORAL route once daily take with food; 20 tablet; Refills: 0, snw Product Selection Permitted - Pepcid 20 mg Oral Tablet - take 1 tablet by ORAL route once daily; 20 tablet; Refills: 0, Product snw Selection Permitted - promethazine 25 mg Oral Tablet - take 1 tablet by ORAL route every 6 hours As needed; 20 tablet; Refills: 0, snw Product Selection Permitted Signatures: Dispatcher [employer] Oliver Hsu MD MD cha Waters, Shelly, CHEMICAL ENGRAVER-C CHEMICAL ENGRAVER-Carie Agrawal RN RN vc1
--- NOTE | 2023-02-02 00:16 | ER ---
Nurse's Notes [facility] Name: Flaquita Leon Age: 32 yrs Sex: Female : 1990 Arrival Date: 02/01/2023 Time: 22:47 Bed 5 Private MD: Diagnosis: Viral infection, unspecified Presentation: 02/01 23:08 Chief complaint: Patient states: running a 101 fever since Sunday. I've been vomiting, vc1 lower abdominal pain, diarrhea and sore throat. Coronavirus screen: Vaccine status: Patient reports being unvaccinated. Client denies travel out of the [place] in the last 14 days. cough unrelated to allergies, diarrhea, fever, muscle pain, vomiting. Client presents with at least one sign or symptom that may indicate coronavirus-19. Ebola Screen: Patient negative for fever greater than or equal to 101.5 degrees Fahrenheit, and additional compatible Ebola Virus Disease symptoms Patient denies exposure to infectious person. Patient denies travel to an Ebola-affected area in the 21 days before illness onset. No symptoms or risks identified at this time. Initial Sepsis Screen: Does the patient meet any 2 criteria? No. Patient's initial sepsis screen is negative. Does the patient have a suspected source of infection? No. Patient's initial sepsis screen is negative. Risk Assessment: Do you want to hurt yourself or someone else? Patient reports no desire to harm self or others. Onset of symptoms was January 29, 2023. 23:08 Method Of Arrival: Ambulatory vc1 23:08 Acuity: VERA 3 vc1 Triage Assessment: 23:14 General: Appears in no apparent distress. ill, Behavior is calm, cooperative, vc1 appropriate for age. Pain: Complains of pain in right lower quadrant and left lower quadrant Pain does not radiate. Pain currently is 8 out of 10 on a pain scale. EENT: No deficits noted. Reports pain when swallowing. Neuro: Level of Consciousness is awake, alert, obeys commands, Oriented to person, place, time, situation, Appropriate for age. Cardiovascular: No deficits noted. Respiratory: Reports cough that is Airway is patent Respiratory effort is even, unlabored, Respiratory pattern is regular, symmetrical. GI: Abdomen is flat, non-distended, Reports lower abdominal pain, diarrhea, nausea, vomiting. : No deficits noted. No signs and/or symptoms were reported regarding the genitourinary system. Derm: No deficits noted. No signs and/or symptoms reported regarding the dermatologic system. Musculoskeletal: No deficits noted. No signs and/or symptoms reported regarding the musculoskeletal system. 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 Flu vaccine is not up to date. - Social history:: Smoking status: Patient reports the use of cigarette tobacco products, denies chronic smoking, but will smoke occasionally, Reported history of juuling and/or vaping. Screenin:13 [facility] ED Fall Risk Assessment (Adult) History of falling in the last 3 months, vc1 including since admission No falls in past 3 months (0 pts) Confusion or Disorientation No (0 pts) Intoxicated or Sedated No (0 pts) Impaired Gait No (0 pts) Mobility Assist Device Used No (0 pt) Altered Elimination No (0 pt) Score/Fall Risk Level 0 - 2 = Low Risk Oriented to surroundings, Maintained a safe environment, Educated pt \T\ family on fall prevention, incl call for assistance when getting out of bed. Abuse screen: Denies threats or abuse. Nutritional screening: No deficits noted. Tuberculosis screening: No symptoms or risk factors identified. Assessment: 02/02 00:16 Reassessment: No changes from previously documented assessment. Patient and/or family vc1 updated on plan of care and expected duration. Pain level reassessed. Patient is alert, oriented x 3, equal unlabored respirations, skin warm/dry/pink. Vital Signs: 02/01 23:08 BP 114 / 82; Pulse 87; Resp 18; Temp 98.3; Pulse Ox 100% ; Weight 120.2 kg; Height 5 vc1 ft. 4 in. ; Pain 8/10; 02/02 00:25 BP 109 / 73; Pulse 77; Resp 18; Pulse Ox 96% ; vc1 02/01 23:08 Body Mass Index 45.49 (120.20 kg, 162.56 cm) vc1 02/01 23:08 Pain Scale: Adult vc1 ED Course: 02/01 22:48 Patient arrived in ED. am2 22:51 Marcela Olson FNP-C [facility]. snw 22:51 Oliver Roland MD is Attending Physician. snw 23:11 Triage completed. vc1 23:12 Arm band placed on right wrist. vc1 23:13 Susanne Gleason, RN is Primary Nurse. kd3 23:14 Patient has correct armband on for positive identification. Bed in low position. Pulse vc1 ox on. NIBP on. 23:28 Strep Sent. vc1 23:28 Flu Sent. vc1 23:28 COVID-19 SARS RT PCR Sent. vc1 23:28 Test, Urine Sent. vc1 23:28 Urinalysis w/ reflexes Sent. vc1 02/02 00:17 No provider procedures requiring assistance completed. Patient did not have IV access vc1 during this emergency room visit. 00:32 Provided Education on: use for prescribed medications. vc1 00:45 Chest Pa And Lat (2 Views) XRAY In Process Unspecified. EDMS Administered Medications: 02/01 23:28 Drug: Promethazine PO 25 mg Route: PO; vc1 Medication: 23:14 VIS not applicable for this client. vc1 Outcome: 02/02 00:15 Discharge ordered by . snw 00:31 Discharged to home ambulatory, with friend. vc1 00:31 Condition: good 00:31 Discharge instructions given to patient, Instructed on discharge instructions, follow up and referral plans. medication usage, Demonstrated understanding of instructions, follow-up care, medications, Prescriptions given X 4. 00:32 Patient left the ED. vc1 Signatures: Dispatcher [employer] EDMS Marcela Olson FNP-C CLOSING COORDINATOR-Csn Gris Taylor am2 Susanne Gleason, RN RN kd3 Carei Puente RN RN vc1
[2023-02-02 00:38] VITALS: TEMP 98.3
[2023-02-02 00:39] VITALS: BP 109/73; O2SAT 96
--- NOTE | 2023-02-02 15:12 | RAD REPORT ---
EXAM DESCRIPTION: Chest Pa And Lat (2 Views) CLINICAL HISTORY: 32 years Female COUGH COMPARISON: None FINDINGS: Lung volumes adequate. Cardiac silhouette is normal in size. No pneumothorax. No large pleural effusion. No focal consolidation. No acute bony finding. IMPRESSION: No acute cardiopulmonary findings. Electronically signed by: Stefania Hinojosa MD 02/02/2023 12:48 AM CDT Due to temporary technical issues with the PACS/Fluency reporting system, reports are being signed by the in house radiologists without review as a courtesy to insure prompt reporting. The interpreting radiologist is fully responsible for the content of the report.
== END 2023-02-02 00:32 | disposition home or self-care (01) ==
LOC: ER 22:47
DX: B34.9 Viral infection, unspecified (principal)
CPT/HCPCS: 71046; 81001; 81025; 87070; 87081; 87635; 87804; 99284; Q0169

== ENCOUNTER 2024-06-17 14:25 | Emergency (ER) | payer OTHER ==
--- OUTSIDE RECORDS SUMMARY | 2024-06-17 14:27 | XMS REPORT | Continuity of Care Document ---
Author Name Unknown Address [address] [facility] [address] [place] [address] [facility] Address [address] [facility] [address] [place] [address] Care Team Providers Care Access Services Representative Name Role Phone Pcp, Patient Does Not Have A Primary Care Physic debra TRAVIS ALEX Attending Clinician Unavail TRAVIS Reveles Attending Clinician Unavail Travis Reveles MD Attending Clinician [phone] ADDIE AGUILAR Attending Clinician Unavailable ADDIE AGUILAR Attending Clinician Unavailable Addie Aguilar MD Attending Clinician [phone] VICKI EID Attending Clinician Unavailab Vicki Anne DO Attending Clinician [phone] Maicol Kulkarni Attending Clinician [phone] MAICOL FREDERICK Attending Clinician Unavaila Swapna Cueto Attending Clinician Unavailable Swapna Wong Attending Clinician [phone] Doctor Unassigned, [place] Attending Clinician U Viktor Perdomo Attending Clinician [phone] ADDIE AGUILAR Admitting Clinician Unavailable ADDIE AGUILAR Admitting Clinician Unavailable Payers Payer Name Policy Type Policy Number Effective Date Expirati on Date Source REPLACED BY [facility] MEDICAID [id number] 2016 00:00:00 Problems Condition Name Condition Details Condition Category Status Onset Date Resolution Date Last Treatment Date Treating Clinician Comments Source Left wrist pain Left wrist pain Disease Active 07-03 00:00: 00 [facility] Allergies, Adverse Reactions, Alerts Allergy Name Allergy Type Status Severity Reaction(s) Onset Date Inactive Date Treating Clinician Comments Source DOXYCYCL INE DRUG INGREDI Active Rash 12-24 00:00: 00 [facility] CEPHALEX IN DRUG INGREDI Active Rash 12-24 00:00: 00 [facility] Doxycycl ine Propensi ty to adverse reaction s Active Rash 12-24 00:00: 00 [facility] Cephalex in Propensi ty to adverse reaction s Active Rash 12-24 00:00: 00 [facility] NO KNOWN ALLERGIE S Drug Class Active [facility] Social History Social Habit Start Date Stop Date Quantity Comments Source History of tobacco use Smokes tobacco daily [facility] History of Social function 2023-06-06 00:00:00 2023-06-06 00:00:00 [facility] Alcohol intake 2023-06-06 00:00:00 2023-06-06 00:00:00 0 /d [facility] Alcoholic beverage intake 2023-06-06 00:00:00 2023-06-06 00:00:00 0 /d [facility] Exposure to SARS-CoV-2 (event) 2021-12-27 00:00:00 2022-01-06 20:35:00 Not sure [facility] Sex assigned at 1990 00:00:00 1990 00:00:00 [facility] Smoking Status Start Date Stop Date Source Smokes tobacco daily [facility] Medications Ordered Medication Name Filled Medication Name Start Date Stop Date Current Medication? Ordering Clinician Indication Dosage Frequency Signature (SIG) Comments Components Source predniSONE 20 mg tablet 02-24 00:00: 00 03-11 04:59 :00 No [id number] 40mg Take 2 tablets by mouth in the morning for 14 days. [facility] sulfamethox azole-trime thoprim 800-160 mg per tablet 02-24 00:00: 00 03-04 04:59 :00 No [id number] 1{tbl} Take 1 tablet by mouth every 12 (twelve) hours for 7 days. [facility] naproxen 500 mg tablet 8-13 00:00: 00 02-22 04:59 :00 No [id number] 500mg Take 1 tablet by mouth in the morning and 1 tablet in the evening. Take with meals. Do all this for 10 days. [facility] bromphenira mine-pseudo ephedrine-D M (BROMFED DM) 2-30-10 mg/5 mL syrup 2022-07 00:00: 00 Yes [id number] 5mL Take 5 mL by mouth 4 (four) times daily as needed for Congestion /Allergies . [facility] benzonatate 100 mg capsule 2022-07 00:00: 00 Yes [id number] 100mg Take 1 capsule by mouth 3 (three) times daily as needed for Cough. [facility] amoxicillin 500 mg tablet 2022-07 00:00: 00 Yes [id number] 500mg Take 1 tablet by mouth in the morning and 1 tablet at noon and 1 tablet in the evening. [facility] hydroCHLORO thiazide 25 mg tablet 01-06 00:00: 00 Yes [id number] 25mg Take 1 tablet by mouth every morning. [facility] ondansetron 4 mg disintegrat ing tablet 01-06 00:00: 00 Yes [id number] 4mg Take 1 tablet by mouth every 4 (four) hours as needed for Nausea and Vomiting (N/V). [facility] loratadine 10 mg tablet 01-06 00:00: 00 Yes [id number] 10mg Take 1 tablet by mouth daily. [facility] levoFLOXaci n in D5W (LEVAQUIN) 750 mg/150 mL Piggyback 750 mg 12-24 18:30: 00 12-24 18:50 :00 No 750mg 750 mg, IV Piggyback, ONCE, 1 dose, On 12/24/21 at 1330, Administer over 90 Minutes, 150 mL
Reas on for Anti-Infec tive: Documented Infection< br>Documen sha Infection Site: Skin / Soft Tissue
Duration of Therapy: 7 days [facility] clindamycin 300 mg capsule 12-24 00:00: 00 01-04 04:59 :00 No [id number] 300mg Take 1 capsule by mouth 4 (four) times daily for 10 days. [facility] levoFLOXaci n (LEVAQUIN) 750 mg tablet 12-24 00:00: 00 01-01 04:59 :00 No [id number] 750mg Take 1 tablet by mouth every 24 (twenty-fo ur) hours for 7 days. [facility] HYDROcodone -acetaminop hen 5-325 mg tablet 2015-07 00:00: 00 Yes TAKE 1 TABLET BY MOUTH EVERY 4 HOURS NEEDED FOR PAIN [facility] CITRANATAL HARMONY, IRON FUM, 27 mg iron-1 mg -50 mg-260 mg Cap 2015-07 00:00: 00 Yes TAKE ONE CAPSULE BY MOUTH EVERY DAY [facility] CITRANATAL HARMONY, IRON FUM, 27 mg iron-1 mg -50 mg-260 mg Cap 2015-07 00:00: 00 Yes TAKE ONE CAPSULE BY MOUTH EVERY DAY [facility] Vital Signs Vital Name Observation Time Observation Value Comments S ource Systolic blood pressure 2024-02-25 18:59:00 141 mm[Hg] [facility] Diastolic blood pressure 2024-02-25 18:59:00 109 mm[Hg] [facility] Heart rate 2024-02-25 18:59:00 80 /min [facility] Body temperature 2024-02-25 18:59:00 36.72 Emma [facility] Respiratory rate 2024-02-25 18:59:00 16 /min [facility] Body height 2024-02-25 18:59:00 162.6 cm [facility] Body weight 2024-02-25 18:59:00 122.471 kg [facility] BMI 2024-02-25 18:59:00 46.35 kg/m2 [facility] Oxygen saturation in Arterial blood by Pulse oximetry 2024-02-25 18:59:00 100 /min [facility] Systolic blood pressure 2024-02-12 21:20:00 146 mm[Hg] [facility] Diastolic blood pressure 2024-02-12 21:20:00 105 mm[Hg] [facility] Heart rate 2024-02-12 21:20:00 95 /min [facility] Body temperature 2024-02-12 21:20:00 36.89 Emma [facility] Respiratory rate 2024-02-12 21:20:00 16 /min [facility] Oxygen saturation in Arterial blood by Pulse oximetry 2024-02-12 21:20:00 100 /min [facility] Body height 2024-02-12 18:53:00 162.6 cm [facility] Body weight 2024-02-12 18:53:00 122.471 kg [facility] BMI 2024-02-12 18:53:00 46.35 kg/m2 [facility] Systolic blood pressure 2023-06-06 13:55:00 116 mm[Hg] [facility] Diastolic blood pressure 2023-06-06 13:55:00 77 mm[Hg] [facility] Heart rate 2023-06-06 13:55:00 87 /min [facility] Body temperature 2023-06-06 13:55:00 36.89 Emma [facility] Respiratory rate 2023-06-06 13:55:00 18 /min [facility] Body weight 2023-06-06 13:55:00 117.935 kg [facility] BMI 2023-06-06 13:55:00 44.63 kg/m2 [facility] Oxygen saturation in Arterial blood by Pulse oximetry 2023-06-06 13:55:00 96 /min [facility] Systolic blood pressure 2023-05-13 15:16:00 113 mm[Hg] [facility] Diastolic blood pressure 2023-05-13 15:16:00 78 mm[Hg] [facility] Heart rate 2023-05-13 15:16:00 95 /min [facility] Body temperature 2023-05-13 15:16:00 36.72 Emma [facility] Respiratory rate 2023-05-13 15:16:00 18 /min [facility] Oxygen saturation in Arterial blood by Pulse oximetry 2023-05-13 15:16:00 97 /min [facility] Body weight 2023-05-13 15:14:00 119.296 kg [facility] BMI 2023-05-13 15:14:00 45.14 kg/m2 [facility] Systolic blood pressure 2022-01-07 04:00:00 122 mm[Hg] [facility] Diastolic blood pressure 2022-01-07 04:00:00 71 mm[Hg] [facility] Heart rate 2022-01-07 04:00:00 75 /min [facility] Oxygen saturation in Arterial blood by Pulse oximetry 2022-01-07 04:00:00 99 /min [facility] Respiratory rate 2022-01-07 03:05:00 17 /min [facility] Body temperature 2022-01-07 01:39:00 36.22 Emma [facility] Body height 2022-01-07 01:39:00 162.6 cm [facility] Body weight 2022-01-07 01:39:00 90.719 kg [facility] BMI 2022-01-07 01:39:00 34.33 kg/m2 [facility] Heart rate 2021-12-24 18:50:00 76 /min [facility] Respiratory rate 2021-12-24 18:50:00 23 /min [facility] Oxygen saturation in Arterial blood by Pulse oximetry 2021-12-24 18:50:00 98 /min [facility] Systolic blood pressure 2021-12-24 18:00:00 114 mm[Hg] [facility] Diastolic blood pressure 2021-12-24 18:00:00 63 mm[Hg] [facility] Body temperature 2021-12-24 14:32:00 37 [facility] Body height 2021-12-24 14:32:00 162.6 cm [facility] Body weight 2021-12-24 14:32:00 90.719 kg [facility] BMI 2021-12-24 14:32:00 34.33 kg/m2 [facility] Procedures Procedure Date / Time Performed Performing Clinician Source POCT TEST 2024-02-25 21:15:00 Travis Alex [facility] XR ANKLE 3+ VW RIGHT 2024-02-12 19:55:00 Paula Aguilar [facility] GALV ONLY - INFLUENZA A B RSV PCR 2023-06-06 14:02:00 Vicki Eid [facility] COVID-19 (ID NOW RAPID TESTING) 2023-06-06 14:02:00 Vicki Eid [facility] CONSENT/REFUSAL FOR DIAGNOSIS AND TREATMENT 2023-06-06 13:50:19 Doctor Unassigned, [place] [facility] GALV ONLY - INFLUENZA A B RSV PCR 2023-05-13 15:42:00 Maicol Frederick [facility] COVID-19 (MOLECULAR TESTING NUCLEIC ACID AMPLIFICATION) 2023-05-13 15:42:00 Maicol Frederick [facility] CONSENT/REFUSAL FOR DIAGNOSIS AND TREATMENT 2023-05-13 15:11:41 Doctor Unassigned, [place] [facility] COMP. METABOLIC PANEL ([id number]) 2022-01-07 02:51:00 Addie Aguilar [facility] CBC WITH DIFF 2022-01-07 02:51:00 Addie Aguilar [facility] URINALYSIS 2022-01-07 02:51:00 Addie Aguilar [facility] POCT TEST 2022-01-07 02:51:00 Bhavana Aguilar [facility] N-TERMINAL PRO-BNP 2022-01-07 02:51:00 Addie Aguilra [facility] COVID-19 (ID NOW RAPID TESTING) 2022-01-07 02:51:00 Addie Aguilar [facility] URINE DRUG (IMMUNOASSAY) - COMPREHENSIVE DRUG SCREEN W/O REFLEX 2022-01-07 02:51:00 Addie Aguilar [facility] XR CHEST 1 VW 2022-01-07 02:21:57 Addie Aguilar [facility] NOTICE OF PRIVACY PRACTICES 2022-01-07 01:38:44 Doctor Unassigned, [place] [facility] CONSENT/REFUSAL FOR DIAGNOSIS AND TREATMENT 2022-01-07 01:33:46 Doctor Unassigned, [place] [facility] BLOOD CULTURE SCREEN 2021-12-24 15:35:00 Swapna Arizmendi [facility] COMP. METABOLIC PANEL ([id number]) 2021-12-24 15:33:00 Swapna Arizmendi [facility] CBC WITH DIFF 2021-12-24 15:33:00 Swapna Arizmendi [facility] BLOOD CULTURE SCREEN 2021-12-24 15:23:00 Swapna Arizmendi [facility] CONSENT/REFUSAL FOR DIAGNOSIS AND TREATMENT 2021-12-24 14:29:04 Doctor Unassigned, [place] [facility] Encounters Start Date/Time End Date/Time Encounter Type Admission Type Attending [facility] Facility Care Department Encounter ID Source 2021-04-30 05:22:20 Emergency [facility] [id number] [facility] 2021-04-30 04:21:22 Emergency [facility] [id number] [facility] 2024-03-27 15:07:59 2024-03-27 15:07:59 Outpatient SFA SFA [id number] Manny Mario Alberto Burciaga 2024-02-25 14:01:00 2024-02-25 16:42:00 Emergency X TRAVIS ALEX [facility] ERT [id number] [facility] 2024-02-25 14:01:00 2024-02-25 16:42:00 Emergency Travis Alex [facility] [id number] 350.1.13.10 4.2.7.2.686 [id number] [facility] 2024-02-19 10:30:05 2024-02-19 10:30:05 Outpatient SFA SFA [id number] Manny Burciaga 2024-02-12 13:55:00 2024-02-12 16:31:00 Emergency X ADDIE AGUILAR DONNELL [facility] ERT [id number] [facility] 2024-02-12 13:55:00 2024-02-12 16:31:00 Emergency Addie Aguilar [facility] [id number] 350.1.13.10 4.2.7.2.686 [id number] [facility] 2023-12-08 13:53:28 2023-12-08 13:53:28 Outpatient [facility] [id number] Manny Burciaga 2023-12-03 08:46:59 2023-12-03 08:46:59 Outpatient [facility] [id number] Manny Burciaga 2023-12-01 13:42:21 2023-12-01 13:42:21 Outpatient [facility] [id number] Manny Burciaga 2023-06-06 07:55:00 2023-06-06 09:12:00 Emergency X VICKI EID [facility] ERT [id number] [facility] 2023-06-06 07:55:00 2023-06-06 09:12:00 Emergency Vicki Eid [facility] 1.2.840.114 350.1.13.10 4.2.7.2.686 [id number] [facility] 2023-05-14 10:30:00 2023-05-14 10:30:00 Outpatient [facility], Services [facility] [id number] [facility] 2023-05-13 09:15:00 2023-05-13 10:47:00 Emergency Maicol Frederick [facility] 1.2.840.114 350.1.13.10 4.2.7.2.686 [id number] [facility] 2023-05-13 09:15:00 2023-05-13 10:47:00 Emergency X MAICOL FREDERICK [facility] ERT [id number] [facility] 2022-01-06 20:47:00 2022-01-06 23:24:00 Emergency X ADDIE AGUILAR [facility] ERT [id number] [facility] 2022-01-06 20:47:00 2022-01-06 23:24:[address] [facility] 1.2.840.114 350.1.13.10 4.2.7.2.686 [id number] [facility] 2021-12-24 09:34:00 2021-12-24 13:55:00 Emergency X Swapna ARIZMENDI [facility] ERT [id number] [facility] 2021-12-24 09:34:00 2021-12-24 13:55:00 Emergency Swapna Arizmendi [facility] 1.2.840.114 350.1.13.10 4.2.7.2.686 [id number] [facility] 2021-12-24 00:00:00 2021-12-24 00:00:00 Orders Only Doctor Unassigned, [place] [facility] 1.2.840.114 350.1.13.10 4.2.7.2.686 [id number] [facility] 2020-05-14 10:59:00 2020-05-14 11:15:00 Emergency Viktor Lemus [facility] 1.2.840.114 350.1.13.10 4.2.7.2.686 [id number] 2020-05-11 09:34:00 2020-05-11 11:03:00 Emergency Viktor Lemus [facility] 1.2.840.114 350.1.13.10 4.2.7.2.686 [id number] Results Test Description Test Time Test Comments Results Result Co mments Source [facility] [id number] 20:49:29EXAM: XR ANKLE 3+ VW RIGHT HISTORY: 33 years old Female with ankle swelling COMPARISON: None. FINDINGS: Radiographs of the right ankle demonstrate no acute fractures ordislocations. The ankle mortiseis congruent. Joint spaces are preserved.Dorsal talonavicular osteophytosis is noted. Moderate softtissue swellingabout the ankle is present. Small ankle joint effusion is seen. A remoteavulsion of the medial malleolus is noted.[facility] - [id number] 09:55:35* Test Item Value Reference Range Interpretation Comme nts T. PALLIDUM - PA (test code = 69215) REACTIVE NON-REACTIVE A UNLESS OTHER ASHER INDICATED, ALL TESTING PERFORMED AT [facility] [address] [place] [address] RISK LEAD: MATTHEW MORFIN M.D. CLIA NUMBER [id number] [facility] [place]. [id number] CT/NG, NAAT, [id number] 16:13:12* Test Item Value Reference Range Interpretation Comme nts CHLAMYDIA, NAAT, URINE (test code = 54834) NEGATIVE NEGATIVE Testing is perfo rmed with Rafael KRISTIN 6800/8800 systems usingreal-time polymerase chain reaction (PCR) method. A negative result does not exclude low level infection, specimensampling error, or collection error. GONORRHEA, NAAT, URINE (test code = 51523) NEGATIVE NEGATIVE Testing is perfo rmed with Rafael KRISTIN 6800/8800 systems usingreal-time polymerase chain reaction (PCR) method. A negative result does not exclude low level infection, specimensampling error, or collection error. RPR REFLEX TO T. PALLIDUM - [id number] 05:09:45* Test Item Value Reference Range Interpretation Comme nts RPR (test code = 83549) REACTIVE NON-REACTIVE A SCREENING RPR RE ACTIVE. SEE BELOW FOR REFLEX TP-PA RPR TITER (test code = 3500) 1:1 TITER NOT INDIC. H NOTE: Specimen i s RPR reactive, undiluted using automated imageanalysis method. For weakly reactive samples, if clinical suspicionof syphilis is low, consider repeat RPR testing in 14 days.For all others, correlate with treponema-specific antibody testing(e.g. treponema pallidum-particle agglutination, CPL Code 4581).Biologic false positive results may be associated with autoimmunedisease (including systemic lupus erythematosus), infectiousmononucleosis or other viral syndromes, malaria, leprosy, pregnancyand recent immunization, amongst others. HIV 1/2 4TH GEN, RFLX [id number] 04:12:54* Test Item Value Reference Range Interpretation Comme nts HIV 1/2 4TH GEN, RFLX CONF ( test code = 3514) NON-REACTIVE NON-REACTIVE CBC WITH [id number] 03:55:23* Test Item Value Reference Range Interpretation Comme nts WBC (test code = 6690-2) See_Comment [Automated FRSa Dragonfly List] The system which generated this result transmitted reference range: 4.30 - 11.10 10*3/?L. The reference range was not used to interpret this result as normal/abnormal. RBC (test code = 789-8) See_Comment [Automated FRSa Dragonfly List] The system which generated this result transmitted reference range: 3.93 - 5.25 10*6/?L. The reference range was not used to interpret this result as normal/abnormal. HGB (test code = 718-7) 13.6 g/dL 11.6-15.0 HCT (test code = 4544-3) 38.2 % 35.7-45.2 MCV (test code = 787-2) 89.0 fL 80.6-95.5 MCH (test code = 785-6) 31.7 pg 25.9-32.8 MCHC (test code = 786-4) 35.6 g/dL 31.6-35.1 H RDW-SD (test code = 09876-8) 40.1 fL 39.0-49.9 RDW-CV (test code = 788-0) 12.3 % 12.0-15.5 PLT (test code = 777-3) See_Comment [Automated FRSa Dragonfly List] The system which generated this result transmitted reference range: 166 - 358 10*3/?L. The reference range was not used to interpret this result as normal/abnormal. MPV (test code = 74178-8) 9.3 fL 9.5-12.9 L NRBC/100 WBC (test code = 6659439386) See_Comment [Automated me ssage] The system which generated this result transmitted reference range: 0.0 - 10.0 /100 WBCs. The reference range was not used to interpret this result as normal/abnormal. NRBC x10^3 (test code = 6867627465) <0.01 See_Comment [Automated messa ge] The system which generated this result transmitted reference range: 10*3/?L. The reference range was not used to interpret this result as normal/abnormal. GRAN MAT (NEUT) % (test code = 770-8) 50.6 % IMM GRAN % (test code = 0779322316) 0.40 % LYMPH % (test code = 736-9) 38.4 % MONO % (test code = 5905-5) 9.7 % EOS % (test code = 713-8) 0.5 % BASO % (test code = 706-2) 0.4 % GRAN MAT x10^3(ANC) (test code = 9177860776) 2.82 10*3/uL 1.88-7.09 IMM GRAN x10^3 (test code = 2652498471) <0.03 0.00-0.06 LYMPH x10^3 (test code = 731-0) 2.14 10*3/uL 1.32-3.29 MONO x10^3 (test code = 742-7) 0.54 10*3/uL 0.33-0.92 EOS x10^3 (test code = 711-2) 0.03 10*3/uL 0.03-0.39 BASO x10^3 (test code = 704-7) <0.03 0.01-0.07 Lab Interpretation (test code = 20025-1) [id number] 03:28:15* Test Item Value Reference Range Interpretation Comme nts NT-proBNP (test code = 0357446497) 57 pg/mL See_Comment [Automated message] The system which generated this result transmitted reference range: <=125. The reference range was not used to interpret this result as normal/abnormal. LIZZ (test code = LIZZ) Biotin has been reported to cause a negative bias, interpret results relative to patient's use of biotin. Lab Interpretation (test code = 34346-4) Normal [facility] (98602)2022-01-07 03:19:14* Test Item Value Reference Range Interpretation Comme nts NA (test code = 2614761900) 138 mmol/L 135-145 K (test code = 6082709143) 4.1 mmol/L 3.5-5.0 CL (test code = 9964975676) 104 mmol/L 98-108 CO2 TOTAL (test code = 5234216728) 26 mmol/L 23-31 AGAP (test code = 7539307213) 2-16 BUN (test code = 1295166913) 9 mg/dL 7-23 GLUCOSE (test code = 3847469914) 102 mg/dL 70-110 CREATININE (test code = 7595030636) 0.60 mg/dL 0.50-1.04 TOTAL BILI (test code = 0765711356) 1.0 mg/dL 0.1-1.1 CALCIUM (test code = 3567065045) 8.8 mg/dL 8.6-10.6 T PROTEIN (test code = 8381818106) 7.0 g/dL 6.3-8.2 ALBUMIN (test code = 5785001800) 4.1 g/dL 3.5-5.0 ALK PHOS (test code = 5971370608) 54 U/L 34-122 ALTv (test code = 1742-6) 31 U/L 5-35 AST(SGOT) (test code = 2482194424) 52 U/L 13-40 H eGFR (test code = 9092853782) mL/min/1.73m2 LIZZ (test code = LIZZ) Association of [...] or abnormalities in imaging tests). Lab Interpretation (test code = 05406-6) [facility] [id number] 02:51:00* Test Item Value Reference Range Interpretation Comme nts POCT PREG (test code = 1605) Negative On board controls acceptable with C Line (test code = 3574) Present POCT PREG LOT # (test code = 3575) [id number] POCT PREG TEST DATE ( test code = 3576) 05-01-2023 Lab Interpretation (test cod e = 95948-7) Normal [facility]. METABOLIC PANEL (21482)2021-12-24 15:55:54* Test Item Value Reference Range Interpretation Comme nts NA (test code = 7857687514) 140 mmol/L 135-145 K (test code = 3912742930) 4.1 mmol/L 3.5-5.0 CL (test code = 4801879811) 103 mmol/L 98-108 CO2 TOTAL (test code = 3992830416) 25 mmol/L 23-31 AGAP (test code = 5991305922) 2-16 BUN (test code = 0879616666) 10 mg/dL 7-23 GLUCOSE (test code = 6408639164) 91 mg/dL 70-110 CREATININE (test code = 5116477636) 0.59 mg/dL 0.50-1.04 TOTAL BILI (test code = 0442673516) 1.3 mg/dL 0.1-1.1 H CALCIUM (test code = 7261293073) 9.4 mg/dL 8.6-10.6 T PROTEIN (test code = 3015154195) 7.7 g/dL 6.3-8.2 ALBUMIN (test code = 8212337534) 4.6 g/dL 3.5-5.0 ALK PHOS (test code = 4982426600) 69 U/L 34-122 ALTv (test code = 1742-6) 13 U/L 5-35 AST(SGOT) (test code = 1961077881) 24 U/L 13-40 eGFR (test code = 2536891933) mL/min/1.73m2 LIZZ (test code = LIZZ) Association of [...] or abnormalities in imaging tests). Lab Interpretation (test code = 81538-7) Abnormal [facility] WITH [id number] 15:42:33* Test Item Value Reference Range Interpretation Comme nts WBC (test code = 6690-2) See_Comment [Automated messa ge] The system which generated this result transmitted reference range: 4.30 - 11.10 10*3/?L. The reference range was not used to interpret this result as normal/abnormal. RBC (test code = 789-8) See_Comment [Automated messa ge] The system which generated this result transmitted reference range: 3.93 - 5.25 10*6/?L. The reference range was not used to interpret this result as normal/abnormal. HGB (test code = 718-7) 12.5 g/dL 11.6-15.0 HCT (test code = 4544-3) 36.4 % 35.7-45.2 MCV (test code = 787-2) 92.4 fL 80.6-95.5 MCH (test code = 785-6) 31.7 pg 25.9-32.8 MCHC (test code = 786-4) 34.3 g/dL 31.6-35.1 RDW-SD (test code = 36662-7) 41.0 fL 39.0-49.9 RDW-CV (test code = 788-0) 12.1 % 12.0-15.5 PLT (test code = 777-3) See_Comment [Automated FRSa ge] The system which generated this result transmitted reference range: 166 - 358 10*3/?L. The reference range was not used to interpret this result as normal/abnormal. MPV (test code = 05859-3) 9.1 fL 9.5-12.9 L NRBC/100 WBC (test code = 1720961809) See_Comment [Automated [email or web address] ssage] The system which generated this result transmitted reference range: 0.0 - 10.0 /100 WBCs. The reference range was not used to interpret this result as normal/abnormal. NRBC x10^3 (test code = 6627102917) <0.01 See_Comment [Automated FRSa ge] The system which generated this result transmitted reference range: 10*3/?L. The reference range was not used to interpret this result as normal/abnormal. GRAN MAT (NEUT) % (test code = 770-8) 69.2 % IMM GRAN % (test code = 1147211674) 0.20 % LYMPH % (test code = 736-9) 22.9 % MONO % (test code = 5905-5) 7.0 % EOS % (test code = 713-8) 0.5 % BASO % (test code = 706-2) 0.2 % GRAN MAT x10^3(ANC) (test code = 3272153328) 4.04 10*3/uL 1.88-7.09 IMM GRAN x10^3 (test code = 5774386615) <0.03 0.00-0.06 LYMPH x10^3 (test code = 731-0) 1.34 10*3/uL 1.32-3.29 MONO x10^3 (test code = 742-7) 0.41 10*3/uL 0.33-0.92 EOS x10^3 (test code = 711-2) 0.03 10*3/uL 0.03-0.39 BASO x10^3 (test code = 704-7) <0.03 0.01-0.07 Lab Interpretation (test code = 70561-5) Abnormal [facility]"
[2024-06-17 15:21] LABS: SARS-CoV-2 Antigen CONTROL BLUE LINE VIS/BG OK; SARS-CoV-2 Antigen Rapid Res Negative (Negative)
--- NOTE | 2024-06-17 15:40 | EDPHYS ---
Physician Documentation [facility] Name: Flaquita Leon Age: 33 yrs Sex: Female : 1990 Arrival Date: 06/17/2024 Time: 14:25 Bed 21 Private MD: ED Physician Chuy Franks HPI: 06/17 18:55 This 33 yrs old Female presents to ER via Ambulatory with complaints of Back Pain, Flu ms3 Symptoms, Sore Throat. 18:55 A 33-year-old patient presents to the Emergency Department with worsening symptoms of ms3 headache, congestion, sore throat, and nausea, rated at a 6 or 7 on the pain scale. The patient reports these symptoms but notes that nothing has made them feel better or worse.. [employer]: 14:39 LMP 06/08/2024, unknown tm6 Historical: - Allergies: 14:41 Doxycycline; tm6 14:41 Keflex; tm6 - PMHx: 14:41 Seizures; spinal stenosis; Bipolar disorder; tm6 - PSHx: 14:41 None; tm6 - Immunization history:: Flu vaccine is not up to date. - Infectious Disease History:: Denies. - Social history:: Smoking status: Reported history of juuling and/or vaping. ROS: 18:55 Cardiovascular: Negative for chest pain, and palpitations. Respiratory: Negative for ms3 shortness of breath, cough, wheezing, and pleuritic chest pain, Abdomen/GI: Negative for abdominal pain, nausea, vomiting, diarrhea, and constipation, 18:55 Constitutional: Positive for body aches, chills, 18:55 ENT: Positive for sinus congestion, Exam: 18:55 Constitutional: This is a well developed, well nourished patient who is awake, alert, ms3 and in no acute distress. Head/Face: Normocephalic, atraumatic. Chest/axilla: Normal chest wall appearance and motion. Nontender with no deformity. Cardiovascular: Regular rate and rhythm with a normal S1 and S2. No gallops, murmurs, or rubs. Normal PMI, no JVD. No pulse deficits. Respiratory: Lungs have equal breath sounds bilaterally, clear to auscultation and percussion. No rales, rhonchi or wheezes noted. No increased work of breathing, no retractions or nasal flaring. Abdomen/GI: Soft, non-tender, with normal bowel sounds. No distension or tympany. No guarding or rebound. No evidence of tenderness throughout. Skin: Warm, dry with normal turgor. Normal color with no rashes, no lesions, and no evidence of cellulitis. Vital Signs: 14:39 BP 137 / 97; Pulse 92; Resp 19; Temp 99.1(O); Pulse Ox 96% on R/A; MAP 110 mmHg; Weight tm6 122.47 kg; Height 5 ft. 4 in. ; Pain 5/10; 14:39 Body Mass Index 46.34 (122.47 kg, 162.56 cm) tm6 14:39 Pain Scale: Adult tm6 MDM: 14:56 Medical Screening Exam initiated ms3 18:55 Differential diagnosis: Flu versus COVID versus viral illness. Data reviewed: vital ms3 signs, nurses notes, lab test result(s), and as a result, I will discharge patient. Counseling: I had a detailed discussion with the patient and/or guardian regarding the historical points, exam findings, and any diagnostic results supporting the discharge/admit diagnosis, lab results, the need for outpatient follow up, to return to the emergency department if symptoms worsen or persist or if there are any questions or concerns that arise at home. Special discussion: I discussed with the patient/guardian in detail that at this point there is no indication for admission to the hospital. It is understood, however, that if the symptoms persist or worsen the patient needs to return immediately for re-evaluation. ED course: Discussed negative flu and COVID with patient. Patient to follow-up with primary care physician 2 to 3 days. Patient understands agrees with plan. All questions were answered. Return precautions discussed include worsening symptoms, or any other concerns.. 06/17 14:36 Order name: SARS RAPID; Complete Time: 15:36 ms3 06/17 14:36 Order name: Flu; Complete Time: 15:36 ms3 Administered Medications: No medications were administered Disposition Summary: 06/17/24 15:39 Discharge Ordered Notes: Location: Home ms3 Condition: Stable ms3 Diagnosis - Acute upper respiratory infection, unspecified ms3 Followup: ms3 - With: Cleveland Duarte, DO - When: 2 - 3 days - Reason: Recheck today's complaints Discharge Instructions: - Discharge Summary Sheet ms3 - Upper Respiratory Infection, Adult ms3 Forms: - Medication Reconciliation Form ms3 - Antibiotic Education ms3 - Prescription Opioid Use ms3 - Patient Portal Instructions ms3 - Leadership Thank You Letter ms3 - Work release form kc6 Prescriptions: - benzonatate 200 mg Oral capsule - take 1 capsule ORAL route 3 times per day as needed; 15 capsule; Refills: 0, ms3 Product Selection Permitted Signatures: Dispatcher [employer] EDChuy Haywood, DO ms3 Richard Bobo, RN RN tm6
--- NOTE | 2024-06-17 15:40 | ER ---
Nurse's Notes [facility] Name: Flaquita Leon Age: 33 yrs Sex: Female : 1990 Arrival Date: 06/17/2024 Time: 14:25 Bed 21 Private MD: Diagnosis: Acute upper respiratory infection, unspecified Presentation: 06/17 14:40 Chief complaint: Patient states: stuffy nose, sore throat, hurts to swallow, nausea, tm6 cough since yesterday. Also left side of back hurts since yesterday, I think I hurt it at work. Coronavirus screen: Client denies travel out of the [place] in the last 14 days. Ebola Screen: Patient negative for fever greater than or equal to 101.5 degrees Fahrenheit, and additional compatible Ebola Virus Disease symptoms Patient denies exposure to infectious person. Patient denies travel to an Ebola-affected area in the 21 days before illness onset. No symptoms or risks identified at this time. Initial Sepsis Screen: Does the patient meet any 2 criteria? No. Patient's initial sepsis screen is negative. Does the patient have a suspected source of infection? No. Patient's initial sepsis screen is negative. Risk Assessment: Do you want to hurt yourself or someone else? Patient reports no desire to harm self or others. Onset of symptoms was June 16, 2024. 14:40 Method Of Arrival: Ambulatory tm6 14:40 Acuity: VERA 4 tm6 Triage Assessment: 14:41 General: Appears in no apparent distress. Behavior is calm, cooperative. Pain: tm6 Complains of pain in back, throat Pain currently is 5 out of 10 on a pain scale. Pain began 1 day ago. EENT: Reports difficulty swallowing nasal congestion nasal discharge. Neuro: Level of Consciousness is awake, alert, obeys commands, Oriented to person, place, time, situation. Cardiovascular: Patient's skin is warm and dry. Respiratory: Reports cough that is Airway is patent Respiratory effort is even, unlabored, Respiratory pattern is regular, symmetrical. GI: Abdomen is round Reports nausea. : No signs and/or symptoms were reported regarding the genitourinary system. Derm: No signs and/or symptoms reported regarding the dermatologic system. Musculoskeletal: Circulation, motion, and sensation intact. Reports pain in back. STAMP CLASSIFIER: 14:39 LMP 06/08/2024, unknown tm6 Historical: - Allergies: 14:41 Doxycycline; tm6 14:41 Keflex; tm6 - PMHx: 14:41 Seizures; spinal stenosis; Bipolar disorder; tm6 - PSHx: 14:41 None; tm6 - Immunization history:: Flu vaccine is not up to date. - Infectious Disease History:: Denies. - Social history:: Smoking status: Reported history of juuling and/or vaping. Screenin:06 [facility] ED Fall Risk Assessment (Adult) History of falling in the last 3 months, jb4 including since admission No falls in past 3 months (0 pts) Confusion or Disorientation No (0 pts) Intoxicated or Sedated No (0 pts) Impaired Gait No (0 pts) Mobility Assist Device Used No (0 pt) Altered Elimination No (0 pt) Score/Fall Risk Level 0 - 2 = Low Risk Oriented to surroundings, Maintained a safe environment. Abuse screen: Denies threats or abuse. Nutritional screening: No deficits noted. Tuberculosis screening: No symptoms or risk factors identified. Assessment: 15:06 General: Appears in no apparent distress. comfortable, Behavior is calm, cooperative, jb4 appropriate for age. Pain: Complains of pain in throat, back Pain currently is 5 out of 10 on a pain scale. Neuro: Level of Consciousness is awake, alert, obeys commands, Oriented to person, place, time, situation. Cardiovascular: Patient's skin is warm and dry. Respiratory: Airway is patent Respiratory effort is even, unlabored, Respiratory pattern is regular, symmetrical. Derm: Skin is intact, Skin is pink, warm \T\ dry. Vital Signs: 14:39 BP 137 / 97; Pulse 92; Resp 19; Temp 99.1(O); Pulse Ox 96% on R/A; MAP 110 mmHg; Weight tm6 122.47 kg; Height 5 ft. 4 in. ; Pain 5/10; 14:39 Body Mass Index 46.34 (122.47 kg, 162.56 cm) tm6 14:39 Pain Scale: Adult tm6 ED Course: 14:29 Patient arrived in ED. im 14:30 Chuy Franks DO is Attending Physician. ms3 14:41 Triage completed. tm6 14:41 Arm band placed on right wrist. tm6 14:53 Flu Sent. bc6 14:53 SARS RAPID Sent. 6 14:53 COVID swab sent to lab. Flu and/or RSV swab sent to lab. bc6 15:06 Patient has correct armband on for positive identification. Bed in low position. Call jb4 light in reach. Side rails up X 1. Provided Education on: plan of care. 15:39 Cleveland Duarte DO is Referral Physician. ms3 16:09 No provider procedures requiring assistance completed. Patient did not have IV access jb4 during this emergency room visit. Administered Medications: No medications were administered Medication: 15:06 VIS not applicable for this client. jb4 Outcome: 15:39 Discharge ordered by MD. ms3 16:08 Patient left the ED. jb4 16:09 Discharged to home ambulatory, jb4 16:09 Condition: stable 16:09 Discharge instructions given to patient, family, Instructed on discharge instructions, follow up and referral plans. medication usage, Demonstrated understanding of instructions, follow-up care, medications, Prescriptions given X 1, Signatures: Ambrose De Souza, RN RN jb4 Chuy Franks DO DO ms3 Nirali Rizzo 6 Debbie Sharpe Tawney, RN RN tm6
[2024-06-17 16:16] VITALS: BP 137/97; TEMP 99.1; O2SAT 96
== END 2024-06-17 16:08 | disposition home or self-care (01) ==
LOC: ER 14:25
DX: J06.9 Acute upper respiratory infection, unspecified (principal); Z11.52 Encounter for screening for COVID-19
CPT/HCPCS: 36415; 87804; 87811; 99283

== ENCOUNTER 2024-09-03 11:57 | Emergency (ER) | payer OTHER, SELFPAY ==
--- OUTSIDE RECORDS SUMMARY | 2024-09-03 12:00 | XMS REPORT | Continuity of Care Document ---
Author Name Unknown Address [address] [facility] [facility] [address] [place] [address] [facility] Address [address] [place] [address] Care Team Providers Care Environmental Auditor Name Role Phone Pcp, Patient Does Not Have A Primary Care Physic debra TRAVIS ALEX Attending Clinician Unavail able TRAVIS ALEX Attending Clinician Unavail Travis Mendenhall MD Attending Clinician [phone] ADDIE AGUILAR Attending Clinician Unavailable ADDIE AGUILAR Attending Clinician Unavailable Addie Aguilar MD Attending Clinician [phone] VICKI EID Attending Clinician Unavailab Vicki Anne DO Attending Clinician [phone] Maicol Kulkarni Attending Clinician [phone] MAICOL FREDERICK Attending Clinician Unavaila Swapna Cueto Attending Clinician Unavailable Swapna Wong Attending Clinician [phone] Doctor Unassigned, [place] Attending Clinician U Viktor Perdomo Attending Clinician [phone] ADDIE AGUILAR Admitting Clinician Unavailable ADDIE AGUILAR Admitting Clinician Unavailable Payers Payer Name Policy Type Policy Number Effective Date Expirati on Date Source [facility] MEDICAID [id number] 2016 00:00:00 Problems Condition Name Condition Details Condition Category Status Onset Date Resolution Date Last Treatment Date Treating Clinician Comments Source Left wrist pain Left wrist pain Disease Active 07-03 00:00: 00 [facility] Allergies, Adverse Reactions, Alerts Allergy Name Allergy Type Status Severity Reaction(s) Onset Date Inactive Date Treating Clinician Comments Source DOXYCYCL INE DRUG INGREDI Active Rash 12-24 00:00: 00 [facility] CEPHALEX IN DRUG INGREDI Active Rash 12-24 00:00: 00 [facility] Doxycycl ine Propensi ty to adverse reaction s Active Rash 12-24 00:00: 00 [facility] Cephalex in Propensi ty to adverse reaction s Active Rash 12-24 00:00: 00 [facility] NO KNOWN ALLERGIE S Drug Class Active [facility] Social History Social Habit Start Date Stop Date Quantity Comments Source History of tobacco use Smokes tobacco daily [facility] of Social function 2023-06-06 00:00:00 2023-06-06 00:00:00 [facility] Alcohol intake 2023-06-06 00:00:00 2023-06-06 00:00:00 0 /d [facility] Alcoholic beverage intake 2023-06-06 00:00:00 2023-06-06 00:00:00 0 /d [facility] Exposure to SARS-CoV-2 (event) 2021-12-27 00:00:00 2022-01-06 20:35:00 Not sure [facility] Sex assigned at 1990 00:00:00 1990 00:00:00 [facility] Smoking Status Start Date Stop Date Source Smokes tobacco daily [facility] Medications Ordered Medication Name Filled Medication Name Start Date Stop Date Current Medication? Ordering Clinician Indication Dosage Frequency Signature (SIG) Comments Components Source predniSONE 20 mg tablet 02-24 00:00: 00 03-11 04:59 :00 No [id number] 40mg Take 2 tablets by mouth in the morning for 14 days. [facility] sulfamethox azole-trime thoprim 800-160 mg per tablet 02-24 00:00: 00 03-04 04:59 :00 No [id number] 1{tbl} Take 1 tablet by mouth every 12 (twelve) hours for 7 days. [facility] naproxen 500 mg tablet 8-13 00:00: 00 02-22 04:59 :00 No [id number] 500mg Take 1 tablet by mouth in the morning and 1 tablet in the evening. Take with meals. Do all this for 10 days. [facility] bromphenira mine-pseudo ephedrine-D M (BROMFED DM) 2-30-10 mg/5 mL syrup 2022-07 00:00: 00 Yes [id number] 5mL Take 5 mL by mouth 4 (four) times daily as needed for Congestion /Allergies . [facility] benzonatate 100 mg capsule 2022-07 00:00: 00 Yes [id number] 100mg Take 1 capsule by mouth 3 (three) times daily as needed for Cough. [facility] amoxicillin 500 mg tablet 2022-07 00:00: 00 Yes [id number] 500mg Take 1 tablet by mouth in the morning and 1 tablet at noon and 1 tablet in the evening. [facility] hydroCHLORO thiazide 25 mg tablet 01-06 00:00: 00 Yes [id number] 25mg Take 1 tablet by mouth every morning. [facility] ondansetron 4 mg disintegrat ing tablet 01-06 00:00: 00 Yes [id number] 4mg Take 1 tablet by mouth every 4 (four) hours as needed for Nausea and Vomiting (N/V). [facility] loratadine 10 mg tablet 01-06 00:00: 00 Yes [id number] 10mg Take 1 tablet by mouth daily. [facility] levoFLOXaci n in D5W (LEVAQUIN) 750 mg/150 mL Piggyback 750 mg 12-24 18:30: 00 12-24 18:50 :00 No 750mg 750 mg, IV Piggyback, ONCE, 1 dose, On 12/24/21 at 1330, Administer over 90 Minutes, 150 mL
Reas on for Anti-Infec tive: Documented Infection< br>Documen sha Infection Site: Skin / Soft Tissue
Duration of Therapy: 7 days [facility] clindamycin 300 mg capsule 12-24 00:00: 00 01-04 04:59 :00 No [id number] 300mg Take 1 capsule by mouth 4 (four) times daily for 10 days. [facility] levoFLOXaci n (LEVAQUIN) 750 mg tablet 12-24 00:00: 00 01-01 04:59 :00 No [id number] 750mg Take 1 tablet by mouth every 24 (twenty-fo ur) hours for 7 days. [facility] HYDROcodone -acetaminop hen 5-325 mg tablet 2015-07 00:00: 00 Yes TAKE 1 TABLET BY MOUTH EVERY 4 HOURS NEEDED FOR PAIN [facility] CITRANATAL HARMONY, IRON FUM, 27 mg iron-1 mg -50 mg-260 mg Cap 2015-07 00:00: 00 Yes TAKE ONE CAPSULE BY MOUTH EVERY DAY [facility] CITRANATAL HARMONY, IRON FUM, 27 mg iron-1 mg -50 mg-260 mg Cap 2015-07 00:00: 00 Yes TAKE ONE CAPSULE BY MOUTH EVERY DAY [facility] Vital Signs Vital Name Observation Time Observation Value Comments S ource Systolic blood pressure 2024-02-25 18:59:00 141 mm[Hg] [facility] Diastolic blood pressure 2024-02-25 18:59:00 109 mm[Hg] [facility] Heart rate 2024-02-25 18:59:00 80 /min [facility] Body temperature 2024-02-25 18:59:00 36.72 Emma [facility] Respiratory rate 2024-02-25 18:59:00 16 /min [facility] Body height 2024-02-25 18:59:00 162.6 cm [facility] Body weight 2024-02-25 18:59:00 122.471 kg [facility] BMI 2024-02-25 18:59:00 46.35 kg/m2 [facility] Oxygen saturation in Arterial blood by Pulse oximetry 2024-02-25 18:59:00 100 /min [facility] Systolic blood pressure 2024-02-12 21:20:00 146 mm[Hg] [facility] Diastolic blood pressure 2024-02-12 21:20:00 105 mm[Hg] [facility] Heart rate 2024-02-12 21:20:00 95 /min [facility] Body temperature 2024-02-12 21:20:00 36.89 Emma [facility] Respiratory rate 2024-02-12 21:20:00 16 /min [facility] Oxygen saturation in Arterial blood by Pulse oximetry 2024-02-12 21:20:00 100 /min [facility] Body height 2024-02-12 18:53:00 162.6 cm [facility] Body weight 2024-02-12 18:53:00 122.471 kg [facility] BMI 2024-02-12 18:53:00 46.35 kg/m2 [facility] Systolic blood pressure 2023-06-06 13:55:00 116 mm[Hg] [facility] Diastolic blood pressure 2023-06-06 13:55:00 77 mm[Hg] [facility] Heart rate 2023-06-06 13:55:00 87 /min [facility] Body temperature 2023-06-06 13:55:00 36.89 Emma [facility] Respiratory rate 2023-06-06 13:55:00 18 /min [facility] Body weight 2023-06-06 13:55:00 117.935 kg [facility] BMI 2023-06-06 13:55:00 44.63 kg/m2 [facility] Oxygen saturation in Arterial blood by Pulse oximetry 2023-06-06 13:55:00 96 /min [facility] Systolic blood pressure 2023-05-13 15:16:00 113 mm[Hg] [facility] Diastolic blood pressure 2023-05-13 15:16:00 78 mm[Hg] [facility] Heart rate 2023-05-13 15:16:00 95 /min [facility] Body temperature 2023-05-13 15:16:00 36.72 Emma [facility] Respiratory rate 2023-05-13 15:16:00 18 /min [facility] Oxygen saturation in Arterial blood by Pulse oximetry 2023-05-13 15:16:00 97 /min [facility] Body weight 2023-05-13 15:14:00 119.296 kg [facility] BMI 2023-05-13 15:14:00 45.14 kg/m2 [facility] Systolic blood pressure 2022-01-07 04:00:00 122 mm[Hg] [facility] Diastolic blood pressure 2022-01-07 04:00:00 71 mm[Hg] [facility] Heart rate 2022-01-07 04:00:00 75 /min [facility] Oxygen saturation in Arterial blood by Pulse oximetry 2022-01-07 04:00:00 99 /min [facility] Respiratory rate 2022-01-07 03:05:00 17 /min [facility] Body temperature 2022-01-07 01:39:00 36.22 Emma [facility] Body height 2022-01-07 01:39:00 162.6 cm [facility] Body weight 2022-01-07 01:39:00 90.719 kg [facility] BMI 2022-01-07 01:39:00 34.33 kg/m2 [facility] Heart rate 2021-12-24 18:50:00 76 /min [facility] Respiratory rate 2021-12-24 18:50:00 23 /min [facility] Oxygen saturation in Arterial blood by Pulse oximetry 2021-12-24 18:50:00 98 /min [facility] Systolic blood pressure 2021-12-24 18:00:00 114 mm[Hg] [facility] Diastolic blood pressure 2021-12-24 18:00:00 63 mm[Hg] [facility] Body temperature 2021-12-24 14:32:00 37 [facility] Body height 2021-12-24 14:32:00 162.6 cm [facility] Body weight 2021-12-24 14:32:00 90.719 kg [facility] BMI 2021-12-24 14:32:00 34.33 kg/m2 [facility] Procedures Procedure Date / Time Performed Performing Clinician Source POCT TEST 2024-02-25 21:15:00 Travis Alex [facility] XR ANKLE 3+ VW RIGHT 2024-02-12 19:55:00 Paula Aguilar [facility] GALV ONLY - INFLUENZA A B RSV PCR 2023-06-06 14:02:00 Vicki Eid [facility] COVID-19 (ID NOW RAPID TESTING) 2023-06-06 14:02:00 Vicki Eid [facility] CONSENT/REFUSAL FOR DIAGNOSIS AND TREATMENT 2023-06-06 13:50:19 Doctor Unassigned, [place] [facility] GALV ONLY - INFLUENZA A B RSV PCR 2023-05-13 15:42:00 Maicol Frederick [facility] COVID-19 (MOLECULAR TESTING NUCLEIC ACID AMPLIFICATION) 2023-05-13 15:42:00 Maicol Frederick [facility] CONSENT/REFUSAL FOR DIAGNOSIS AND TREATMENT 2023-05-13 15:11:41 Doctor Unassigned, [place] [facility] COMP. METABOLIC PANEL ([id number]) 2022-01-07 02:51:00 Addie Aguilar [facility] CBC WITH DIFF 2022-01-07 02:51:00 Addie Aguilar [facility] URINALYSIS 2022-01-07 02:51:00 Addie Aguilar [facility] POCT TEST 2022-01-07 02:51:00 Bhavana Aguilar [facility] N-TERMINAL PRO-BNP 2022-01-07 02:51:00 Addie Aguilar [facility] COVID-19 (ID NOW RAPID TESTING) 2022-01-07 02:51:00 Addie Aguilar [facility] URINE DRUG (IMMUNOASSAY) - COMPREHENSIVE DRUG SCREEN W/O REFLEX 2022-01-07 02:51:00 Addie Aguilar [facility] XR CHEST 1 VW 2022-01-07 02:21:57 Addie Aguilar [facility] NOTICE OF PRIVACY PRACTICES 2022-01-07 01:38:44 Doctor Unassigned, [place] [facility] CONSENT/REFUSAL FOR DIAGNOSIS AND TREATMENT 2022-01-07 01:33:46 Doctor Unassigned, [place] [facility] BLOOD CULTURE SCREEN 2021-12-24 15:35:00 Swapna Arizmendi [facility] COMP. METABOLIC PANEL ([id number]) 2021-12-24 15:33:00 Swpana Arizmendi [facility] CBC WITH DIFF 2021-12-24 15:33:00 Swapna Arizmendi [facility] BLOOD CULTURE SCREEN 2021-12-24 15:23:00 Swapna Arizmendi [facility] CONSENT/REFUSAL FOR DIAGNOSIS AND TREATMENT 2021-12-24 14:29:04 Doctor Unassigned, [place] [facility] Encounters Start Date/Time End Date/Time Encounter Type Admission Type Attending [facility] Facility Care Department Encounter ID Source 2021-04-30 05:22:20 Emergency [facility] [id number] [facility] 2021-04-30 04:21:22 Emergency [facility] [id number] [facility] 2024-03-27 15:07:59 2024-03-27 15:07:59 Outpatient SFA SFA [id number] Manny Mario Alberto Burciaga 2024-02-25 14:01:00 2024-02-25 16:42:00 Emergency X TRAVIS ALEX JOSEPH [facility] [id number] [facility] 2024-02-25 14:01:00 2024-02-25 16:42:00 Emergency Travis Alex [facility] 1.2.840.114 350.1.13.10 4.2.7.2.686 [id number] [facility] 2024-02-19 10:30:05 2024-02-19 10:30:05 Outpatient SFA SFA [id number] Manny Burciaga 2024-02-12 13:55:00 2024-02-12 16:31:00 Emergency X ADDIE AGUILAR DONNELL [facility] [id number] [facility] 2024-02-12 13:55:00 2024-02-12 16:31:00 Emergency Addie Aguilar [facility] 1.2.840.114 350.1.13.10 4.2.7.2.686 [id number] [facility] 2023-12-08 13:53:28 2023-12-08 13:53:28 Outpatient [facility] [id number] Manny Burciaga 2023-12-03 08:46:59 2023-12-03 08:46:59 Outpatient [facility] [id number] Manny Burciaga 2023-12-01 13:42:21 2023-12-01 13:42:21 Outpatient [facility] [id number] Manny Burciaga 2023-06-06 07:55:00 2023-06-06 09:12:00 Emergency X VICKI EID [facility] [id number] [facility] 2023-06-06 07:55:00 2023-06-06 09:12:00 Emergency Vicki Eid [facility] 1.2.840.114 350.1.13.10 4.2.7.2.686 [id number] [facility] 2023-05-14 10:30:00 2023-05-14 10:30:00 Outpatient In[facility], Services CHW CHW [id number] [facility] 2023-05-13 09:15:00 2023-05-13 10:47:00 Emergency Maicol Fredercik [facility] 1.2.840.114 350.1.13.10 4.2.7.2.686 [id number] [facility] 2023-05-13 09:15:00 2023-05-13 10:47:00 Emergency X MAICOL FREDERICK [facility] [id number] [facility] 2022-01-06 20:47:00 2022-01-06 23:24:00 Emergency X ADDIE AGUILAR [facility] [id number] [facility] 2022-01-06 20:47:00 2022-01-06 23:24:00 Emergency Addie Aguilar [facility] 1.2.840.114 350.1.13.10 4.2.7.2.686 [id number] [facility] 2021-12-24 09:34:00 2021-12-24 13:55:00 Emergency X Swapna ARIZMENDI [facility] [id number] [facility] 2021-12-24 09:34:00 2021-12-24 13:55:00 Emergency Swapna Arizmendi Chio [facility] 1.2.840.114 350.1.13.10 4.2.7.2.686 [id number] [facility] 2021-12-24 00:00:00 2021-12-24 00:00:00 Orders Only Doctor Unassigned, [place] [facility] 1.2.840.114 350.1.13.10 4.2.7.2.686 [id number] [facility] 2020-05-14 10:59:00 2020-05-14 11:15:00 Emergency Viktor Lemus [facility] 1.2.840.114 350.1.13.10 4.2.7.2.686 [id number] 2020-05-11 09:34:00 2020-05-11 11:03:00 Emergency Viktor Lemus [facility] 1.2.840.114 350.1.13.10 4.2.7.2.686 [id number] Results Test Description Test Time Test Comments Results Result Co mments Source [facility] [id number] 20:49:29EXAM: XR ANKLE 3+ VW RIGHT HISTORY: 33 years old Female with ankle swelling COMPARISON: None. FINDINGS: Radiographs of the right ankle demonstrate no acute fractures ordislocations. The ankle mortiseis congruent. Joint spaces are preserved.Dorsal talonavicular osteophytosis is noted. Moderate softtissue swellingabout the ankle is present. Small ankle joint effusion is seen. A remoteavulsion of the medial malleolus is noted.[facility] - [id number] 09:55:35* Test Item Value Reference Range Interpretation Comme nts T. PALLIDUM - PA (test code = 22428) REACTIVE NON-REACTIVE A UNLESS OTHER ASHER INDICATED, ALL TESTING PERFORMED AT [facility] [address] [place] [address] INCUBATOR OPERATOR: MATTEHW MORFIN M.D. CLIA NUMBER [id number] [facility] [place] [id number] CT/NG, NAAT, [id number] 16:13:12* Test Item Value Reference Range Interpretation Comme nts CHLAMYDIA, NAAT, URINE (test code = 57074) NEGATIVE NEGATIVE Testing is perfo rmed with Rafael KRISTIN 6800/8800 systems usingreal-time polymerase chain reaction (PCR) method. A negative result does not exclude low level infection, specimensampling error, or collection error. GONORRHEA, NAAT, URINE (test code = 70425) NEGATIVE NEGATIVE Testing is perfo rmed with Rafael KRISTIN 6800/8800 systems usingreal-time polymerase chain reaction (PCR) method. A negative result does not exclude low level infection, specimensampling error, or collection error. RPR REFLEX TO T. PALLIDUM - [id number] 05:09:45* Test Item Value Reference Range Interpretation Comme nts RPR (test code = 58911) REACTIVE NON-REACTIVE A SCREENING RPR RE ACTIVE. [...] amongst others. HIV 1/2 4TH GEN, RFLX [id number] 04:12:54* Test Item Value Reference Range Interpretation Comme nts HIV 1/2 4TH GEN, RFLX CONF ( test code = 3514) NON-REACTIVE NON-REACTIVE CBC WITH [id number] 03:55:23* Test Item Value Reference Range Interpretation Comme nts WBC (test code = 6690-2) See_Comment [Automated Zanga DooBop] The system which generated this result transmitted reference range: 4.30 - 11.10 10*3/?L. The reference range was not used to interpret this result as normal/abnormal. RBC (test code = 789-8) See_Comment [Automated Zanga DooBop] The system which generated this result transmitted [...] g/dL 31.6-35.1 H RDW-SD (test code = 90811-5) 40.1 fL 39.0-49.9 RDW-CV (test code = 788-0) 12.3 % 12.0-15.5 PLT (test code = 777-3) See_Comment [Automated Zanga DooBop] The system which generated this result transmitted reference range: 166 - 358 10*3/?L. The reference range was not used to interpret this result as normal/abnormal. MPV (test code = 87293-1) 9.3 fL 9.5-12.9 L NRBC/100 WBC (test code = 2035968622) See_Comment [Automated me ssage] The system which generated this result transmitted reference range: 0.0 - 10.0 /100 WBCs. The reference range was not used to interpret this result as normal/abnormal. NRBC x10^3 (test code = 6830014372) <0.01 See_Comment [Automated messa ge] The system which generated this result transmitted reference range: 10*3/?L. The reference range was not used to interpret this result as normal/abnormal. GRAN MAT (NEUT) % (test code = 770-8) 50.6 % IMM GRAN % (test code = 0614538096) 0.40 % LYMPH % (test code = 736-9) 38.4 % MONO % (test code = 5905-5) 9.7 % EOS % (test code = 713-8) 0.5 % BASO % (test code = 706-2) 0.4 % GRAN MAT x10^3(ANC) (test code = 2022576851) 2.82 10*3/uL 1.88-7.09 IMM GRAN x10^3 (test code = 5498934413) <0.03 0.00-0.06 LYMPH x10^3 (test code = 731-0) 2.14 10*3/uL 1.32-3.29 MONO x10^3 (test code = 742-7) 0.54 10*3/uL 0.33-0.92 EOS x10^3 (test code = 711-2) 0.03 10*3/uL 0.03-0.39 BASO x10^3 (test code = 704-7) <0.03 0.01-0.07 Lab Interpretation (test code = 59252-4) [facility]normal [id number] 03:28:15* Test Item Value Reference Range Interpretation Comme nts NT-proBNP (test code = 3522294895) 57 pg/mL See_Comment [Automated message] The system which generated this result transmitted reference range: <=125. The reference range was not used to interpret this result as normal/abnormal. LIZZ (test code = LIZZ) Biotin has been reported to cause a negative bias, interpret results relative to patient's use of biotin. Lab Interpretation (test code = 27546-1) Normal [facility] (31517)2022-01-07 03:19:14* Test Item Value Reference Range Interpretation Comme nts NA (test code = 0840249782) 138 mmol/L 135-145 K (test code = 4793045448) 4.1 mmol/L 3.5-5.0 CL (test code = 4712547475) 104 mmol/L 98-108 CO2 TOTAL (test code = 2830172332) 26 mmol/L 23-31 AGAP (test code = 1592439928) 2-16 BUN (test code = 9597102466) 9 mg/dL 7-23 GLUCOSE (test code = 5072883609) 102 mg/dL 70-110 CREATININE (test code = 6972158958) 0.60 mg/dL 0.50-1.04 TOTAL BILI (test code = 5171052904) 1.0 mg/dL 0.1-1.1 CALCIUM (test code = 5092174017) 8.8 mg/dL 8.6-10.6 T PROTEIN (test code = 0166121388) 7.0 g/dL 6.3-8.2 ALBUMIN (test code = 9308267539) 4.1 g/dL 3.5-5.0 ALK PHOS (test code = 4894943582) 54 U/L 34-122 ALTv (test code = 1742-6) 31 U/L 5-35 AST(SGOT) (test code = 7342492958) 52 U/L 13-40 H eGFR (test code = 0821075023) mL/min/1.73m2 LIZZ (test code = LIZZ) Association [...] imaging tests). Lab Interpretation (test code = 96957-0) [facility]normal [facility] [id number] 02:51:00* Test Item Value Reference Range Interpretation Comme nts POCT PREG (test code = 1605) Negative On board controls acceptable with C Line (test code = 3574) Present POCT PREG LOT # (test code = 3575) [id number] POCT PREG TEST DATE ( test code = 3576) 05-01-2023 Lab Interpretation (test cod e = 01915-9) Normal [facility]. METABOLIC PANEL (44218)2021-12-24 15:55:54* Test Item Value Reference Range Interpretation Comme nts NA (test code = 3551187641) 140 mmol/L 135-145 K (test code = 0600705356) 4.1 mmol/L 3.5-5.0 CL (test code = 4264468535) 103 mmol/L 98-108 CO2 TOTAL (test code = 3263356154) 25 mmol/L 23-31 AGAP (test code = 5817931092) 2-16 BUN (test code = 2227135732) 10 mg/dL 7-23 GLUCOSE (test code = 0451856714) 91 mg/dL 70-110 CREATININE (test code = 9009983988) 0.59 mg/dL 0.50-1.04 TOTAL BILI (test code = 3482633800) 1.3 mg/dL 0.1-1.1 H CALCIUM (test code = 7342863775) 9.4 mg/dL 8.6-10.6 T PROTEIN (test code = 2994658820) 7.7 g/dL 6.3-8.2 ALBUMIN (test code = 4877886385) 4.6 g/dL 3.5-5.0 ALK PHOS (test code = 6203201426) 69 U/L 34-122 ALTv (test code = 1742-6) 13 U/L 5-35 AST(SGOT) (test code = 4552148500) 24 U/L 13-40 eGFR (test code = 7737155124) mL/min/1.73m2 LIZZ (test code = LIZZ) Association [...] imaging tests). Lab Interpretation (test code = 87604-3) Abnormal [facility] WITH [id number] 15:42:33* Test Item Value Reference Range Interpretation [...] 34.3 g/dL 31.6-35.1 RDW-SD (test code = 70413-3) 41.0 fL 39.0-49.9 RDW-CV (test code = 788-0) 12.1 % 12.0-15.5 PLT (test code = 777-3) See_Comment [Automated Zanga ge] The system which generated this result transmitted reference range: 166 - 358 10*3/?L. The reference range was not used to interpret this result as normal/abnormal. MPV (test code = 29598-5) 9.1 fL 9.5-12.9 L NRBC/100 WBC (test code = 4098843561) See_Comment [Automated Kustom Codes ssage] The system which generated this result transmitted reference range: 0.0 - 10.0 /100 WBCs. The reference range was not used to interpret this result as normal/abnormal. NRBC x10^3 (test code = 1801311696) <0.01 See_Comment [Automated Zanga ge] The system which generated this result transmitted reference range: 10*3/?L. The reference range was not used to interpret this result as normal/abnormal. GRAN MAT (NEUT) % (test code = 770-8) 69.2 % IMM GRAN % (test code = 2751236320) 0.20 % LYMPH % (test code = 736-9) 22.9 % MONO % (test code = 5905-5) 7.0 % EOS % (test code = 713-8) 0.5 % BASO % (test code = 706-2) 0.2 % GRAN MAT x10^3(ANC) (test code = 6341227009) 4.04 10*3/uL 1.88-7.09 IMM GRAN x10^3 (test code = 2287731209) <0.03 0.00-0.06 LYMPH x10^3 (test code = 731-0) 1.34 10*3/uL 1.32-3.29 MONO x10^3 (test code = 742-7) 0.41 10*3/uL 0.33-0.92 EOS x10^3 (test code = 711-2) 0.03 10*3/uL 0.03-0.39 BASO x10^3 (test code = 704-7) <0.03 0.01-0.07 Lab Interpretation (test code = 16378-8) Abnormal [facility] Notes Date/Time Note Provider Source 2024-02-25 16:42:25 PT D/C home. GCS15, VS stable, no ataxia noted. Given two prescriptions and D/C paperwork. Pt ambulatory at time of discharge. Pt educated on rash, med usage, follow up care, s/s worsening condition. Pt verbalized understanding. Lima Andrade RN [facility] 2024-02-25 13:57:35 Pt to ED [place] rash to torso accompanied by itchiness x 1 week. Pt reports going to PCP and dx with allergic rxn. Prescribed a steroid and steroid cream which she has completed, but rash has spread and become worse. No airway complications. Glenna Navas RN [facility] 2024-02-12 16:30:36 Summary: Discharge Pt given printed and verbal discharge instructions regarding ankle pain, encouraged hydration, Prescriptions provided naproxen Discussed ibuprofen and to take with food to avoid GI distress. Pt verbalized understanding of instructions, pt awake alert oriented, resp reg unlabored, skin w/d, color appropriate for race, moves all ext well,pt encouraged to follow up with pcp Advised to seek medical attention for new/prolonged/worsening of symptoms, Symptoms No adverse reaction to meds given in ER noted upon discharge Awake, alert oriented, resp reg unlabored, skin w/d, pt leaving amb with steady gait, in no apparent distress, Deann Peters RN [facility] 2024-02-12 16:29:34 Summary: bogdan wrap Bogdan wrap applied to the right ankle [facility] 2024-02-12 13:52:46 Pt arrived with right foot pain started today denies injury. Reports swelling Jacquelin Wilson RN [facility]"
--- NOTE | 2024-09-03 13:34 | ER ---
Nurse's Notes [facility] Name: Flaquita Leon Age: 33 yrs Sex: Female : 1990 Arrival Date: 09/03/2024 Time: 11:57 Bed IW1 Private MD: Diagnosis: Presentation: 09/03 12:06 Chief complaint: Patient states: Bilateral feet and leg swelling onset 1 week ago. Pt cm10 has noted redness and swelling to bilateral lower legs. Coronavirus screen: Client denies travel out of the [place] in the last 14 days. Ebola Screen: Patient denies travel to an Ebola-affected area in the 21 days before illness onset. Initial Sepsis Screen: Does the patient meet any 2 criteria? HR > 90 bpm. Does the patient have a suspected source of infection? No. Patient's initial sepsis screen is negative. Risk Assessment: Do you want to hurt yourself or someone else? Patient reports no desire to harm self or others. Onset of symptoms was September 03, 2024. 12:06 Method Of Arrival: Ambulatory cm10 12:06 Acuity: VERA 3 cm10 Triage Assessment: 12:08 General: Appears uncomfortable, Behavior is calm, cooperative. Neuro: No deficits cm10 noted. Level of Consciousness is awake, alert, obeys commands, Oriented to person, place, time, situation, Appropriate for age. Respiratory: No deficits noted. Airway is patent Respiratory effort is even, unlabored, Respiratory pattern is regular, symmetrical. Derm: redness and swelling to bilateral legs and feet. 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 - Infectious Disease History:: CDIFF, . - Social history:: Smoking status: Patient reports the use of cigarette tobacco products, smokes one-half pack cigarettes per day. - Family history:: not pertinent. Assessment: 13:32 Reassessment: not in or lobby. ll1 16:01 Reassessment: No changes from previously documented assessment. not in lobby, restroom, ll1 or outside. Stated they had a emergency and must leave. Vital Signs: 12:06 BP 130 / 68; Pulse 113; Resp 19; Temp 98.1(O); Pulse Ox 100% on R/A; Weight 90.72 kg; cm10 Height 5 ft. 7 in. ; Pain 01/08; 12:06 Body Mass Index 31.32 (90.72 kg, 170.18 cm) cm10 12:06 Pain Scale: Adult cm10 ED Course: 11:58 Patient arrived in ED. mr 12:07 Connor Moreno MD is Attending Physician. rt 12:07 Triage completed. cm10 12:08 Arm band placed on right wrist. Patient placed in waiting room. cm10 12:58 called patient from lobby no answer. 6 13:30 Extrem Venous W Compression Amari US In Process Unspecified. EDMS Administered Medications: No medications were administered Outcome: 16:02 Patient left the ED. ll1 Signatures: Dispatcher [employer] EDMS Hien Odell, Reg Reg mr Elmira Roy, RN RN ll1 Connor Moreno MD MD rt Nirali Rizzo bc6 Zeinab Napoles, RN RN cm10 Corrections: (The following items were deleted from the chart) 14:26 13:31 Patient's name was called from ER [employer]. No response. 10 ll1 14:26 13:33 Patient left the ED. ll1 1
[2024-09-03 14:01] VITALS: BP 130/68; TEMP 98.1; O2SAT 100
--- NOTE | 2024-09-03 14:56 | RAD REPORT ---
EXAMINATION: US LOWER EXTREMITY VENOUS DOPPLER BILATERAL CLINICAL INDICATION: Female, 33 years old.SWELLING TECHNIQUE: Complete bilateral duplex sonography of the lower extremity veins was performed. The exami nation included compression for vein patency, color Doppler imaging and flow augmentation in response to distal compression of the distal external iliac, common femoral, femoral, popliteal, radha leonela, tibial and great saphenous veins. [id number]. COMPARISON: No prior exams FINDINGS: Duplex sonography imaging demonstrates all deep examined to be fully compressible with spontaneous, p hasic and augmented flow bilaterally. IMPRESSION: No evidence of deep venous thrombosis seen in either lower extremity.
--- NOTE | 2024-09-04 16:03 | EDPHYS ---
Physician Documentation [facility] Name: Flaquita Leon Age: 33 yrs Sex: Female : 1990 Arrival Date: 09/03/2024 Time: 11:57 Bed IW1 Private MD: ED Physician Connor Moreno HPI: 09/03 16:48 This 33 yrs old Female presents to ER via Ambulatory with complaints of Leg Swelling. rt 16:48 Patient presents to the ED with 1 week of bilateral lower extremity edema with redness rt to the distal lower extremities. Patient denies discrete injury. Denies other acute complaints at this time, symptoms are moderate in severity, no other aggravating alleviating factors.. 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 - Infectious Disease History:: CDIFF, . - Social history:: Smoking status: Patient reports the use of cigarette tobacco products, smokes one-half pack cigarettes per day. - Family history:: not pertinent. ROS: 16:48 Constitutional: Negative for fever, chills, and weight loss, Respiratory: Negative for rt shortness of breath, cough, wheezing, and pleuritic chest pain, Abdomen/GI: Negative for abdominal pain, nausea, vomiting, diarrhea, and constipation, Neuro: Negative for headache, weakness, numbness, tingling, and seizure, 16:48 Cardiovascular: Positive for edema, Negative for chest pain, 16:48 Skin: Positive for cellulitis, erythema, Negative for laceration(s), Exam: 16:49 Constitutional: This is a well developed, well nourished patient who is awake, alert, rt and in no acute distress. Head/Face: Normocephalic, atraumatic. Chest/axilla: Normal chest wall appearance and motion. Nontender with no deformity. No lesions are appreciated. Cardiovascular: Regular rate and rhythm with a normal S1 and S2. No gallops, murmurs, or rubs. Normal PMI, no JVD. No pulse deficits. Respiratory: Lungs have equal breath sounds bilaterally, clear to auscultation and percussion. No rales, rhonchi or wheezes noted. No increased work of breathing, no retractions or nasal flaring. Abdomen/GI: Soft, non-tender, with normal bowel sounds. No distension or tympany. No guarding or rebound. No evidence of tenderness throughout. Neuro: Awake and alert, GCS 15, oriented to person, place, time, and situation. Cranial nerves II-XII grossly intact. Motor strength 5/5 in all extremities. Sensory grossly intact. Cerebellar exam normal. Normal gait. 16:49 Musculoskeletal/extremity: 3+ edema, erythema to the distal bilateral extremities, pulses, motor, sensation intact, no deformity.. Vital Signs: 12:06 BP 130 / 68; Pulse 113; Resp 19; Temp 98.1(O); Pulse Ox 100% on R/A; Weight 90.72 kg; cm10 Height 5 ft. 7 in. ; Pain 7/10; 12:06 Body Mass Index 31.32 (90.72 kg, 170.18 cm) cm10 12:06 Pain Scale: Adult cm10 MDM: 12:13 Medical Screening Exam initiated rt 16:49 Differential Diagnosis Cellulitis, DVT. Data reviewed: vital signs, nurses notes. Data rt reviewed: radiologic studies. I considered the following discharge prescriptions or medication management in the emergency department Medications were administered in the Emergency Department. See MAR. Test considered but Not performed: X-ray: No discrete injury, x-rays not indicated. ED course: Evaluated patient in triage, patient left from the waiting room before I was able to discuss with her any results, discussed risk versus benefits.. 09/03 12:18 Order name: Extrem Venous W Compression Amari US; Complete Time: 14:57 rt 09/03 12:18 Order name: Accucheck rt 09/03 12:18 Order name: Cardiac monitoring rt 09/03 12:18 Order name: EKG - Nurse/Tech rt 09/03 12:18 Order name: IV Saline Lock - Large Bore rt 09/03 12:18 Order name: Labs collected and sent rt 09/03 12:18 Order name: O2 Per Protocol rt 09/03 12:18 Order name: O2 Sat Monitoring rt 09/03 12:18 Order name: Vital Signs rt Administered Medications: No medications were administered Disposition Summary: 09/03/24 16:02 Eloped Notes: Disposition: after being seen by provider(09/03/24 16:02) ll1 Reason: unknown(09/03/24 16:02) ll1 Signatures: Dispatcher [employer] Elmira Garya, RN RN ll1 Connor Moreno MD MD rt Zeinab Napoles RN RN cm10 Corrections: (The following items were deleted from the chart) 12:19 12:19 Extrem Venous W Compression Amari+US.RAD.BRZ ordered. EDMS EDMS 14: 13:33 after being seen by provider ll1 rt 14: 13:33 unknown ll1 rt
== END 2024-09-03 16:02 | disposition left against medical advice (07) ==
LOC: ER 11:57
DX: Z53.21 Procedure and treatment not carried out due to patient leaving prior to being seen by health care provider (principal)
CPT/HCPCS: 93970